=== PATIENT | male | born 1970 | race Caucasian/White ===

== ENCOUNTER 2017-09-20 16:13 | Inpatient (IN) | payer MEDICAID ==
[2017-09-20] MEDS ORDERED: Sodium Chloride 0.9% 1,000 ML IV ONE (16:51)
--- NOTE | 2017-09-20 16:58 | ED Physician Chart ---
ED Chief Complaint/HPI - Patient Information Date Seen:: 09/20/17 Time Seen:: 16:35 Chief Complaint:: Abdominal Pain History of Present Illness:: onset x 3 days of intermittent, crampy, abdominal pain, N/V/D, and fever; no trauma, H/As, neck pain, C/P, SOB, cough, A/C, chills, or urinary s/s Allergies:: Allergies Allergy/AdvReac Type Severity Reaction Status Date / Time No Known Allergies Allergy Verified 09/20/17 16:34 Vitals:: Vital Signs - 8 hr 09/20/17 16:34 Temp 99.2 F HR 110 RR 16 BP 135/86 O2 Sat % 97 Historian:: Patient Review:: Nurse's Note Reviewed ED Review of Systems - Review of Systems General/Constitutional: No fever, No chills, No weight loss, No weakness, No diaphoresis, No edema, No loss of appetite Skin: No skin lesions, No rash, No bruising Head: No headache, No light-headedness Eyes: No loss of vision, No pain, No diplopia ENT: No earache, No nasal drainage, No sore throat, No tinnitus Neck: No neck pain, No swelling, No thyromegaly, No stiffness, No mass noted Cardio Vascular: No chest pain, No palpitations, No PND, No orthopnea, No edema Pulmonary: No SOB, No cough, No sputum, No wheezing GI: Nausea, Vomiting, Diarrhea, Pain, No melena, No hematochezia, No constipation, No hematemesis G/U: No dysuria, No frequency, No hematuria, No nacturia Musculoskeletal: No bone or joint pain, No back pain, No muscle pain Endocrine: No polyuria, No polydipsia Psychiatric: No prior psych history, No depression, No anxiety, No suicidal ideation, No homicidal ideation, No auditory hallucination, No visual hallucination Hematopoietic: No bruising, No lymphadenopathy Allergic/Immuno: No urticaria, No angioedema Neurological: No syncope, No focal symptoms, No weakness, No paresthesia, No headache, No seizure, No dizziness, No confusion, No vertigo ED Past Medical History - Past Medical History Obtainable: Yes Past Medical History: No significant medical hx Family History: HTN Social History: Non Smoker, No Alcohol, No Drug Use, Single Surgical History: None Psychiatricy History: None Medication: Reviewed Family Medical History - Family Member Mother Hx Family Cancer: No Hx Family Hypertension: No Hx Family Stroke: No Hx Family Diabetes: No Hx Family Dementia: No Hx Family AIDS: No Hx Family HIV: No ED Physical Exam - Physical Examination General/Constitutional: Awake, Well-developed, well-nourished, Alert, No distress, GCS 15, Non-toxic appearing, Ambulatory Head: Atraumatic Eyes: Lids, conjuctiva normal, PERRL, EOMI Skin: Nl inspection, No rash, No skin lesions, No ecchymosis, Well hydrated, No lymphadenopathy ENMT: External ears, nose nl, TM canals nl, Nasal exam nl, Lips, teeth, gums nl , Oropharynx nl, Tonsils nl Neck: Nontender, Full ROM w/o pain, No JVD, No nuchal rigidity, No bruit, No mass, No stridor Respiratory: Nl effort/Exclusion, Clear to Auscultation, No Wheeze/Rhonchi/Rales Cardio Vascular: RRR, No murmur, gallop, rubs, NL S1 S2, Carotid/Femoral/Distal pulses equal bilaterally GI: No organomegaly, No hernia, Normal BS's, Nondistended, No mass/bruits, No McBurney tenderness Other GI comments:: epigastric and RUQ tenderness : No CVA tenderness Extremities: No tenderness or effusion, Full ROM, normal strength in all extremities, No edema, Normal digits & nails Neuro/Psych: Alert/oriented, DTR's symmetric, Normal sensory exam, Normal motor strength, Judgement/insight normal, Mood normal, Normal gait, No focal deficits Misc: Normal back, No paraspinal tenderness ED Labs/Radiology/EKG Results - Lab Results Comments:: WBC: 28.0; Na+: 129 - Radiology Results Comments:: + Cholelithiasis; Cholecystitis - EKG Interpretations EKG Time:: 16:50 Rate & Rhythm: 106; ST Comments:: non-specific st-t changes ED Septic Shock - . Is Septic Shock (SBP<90, OR Lactate>4 mmol\L) present?: No - <6hrs of presentation: Vital Signs: Vital Signs - 8 hr 09/20/17 16:34 Temp 99.2 F HR 110 RR 16 BP 135/86 O2 Sat % 97 ED Reassessment (Disposition) - Reassessment Reassessment Condition:: Improved - Diagnosis Diagnosis:: Cholecystitis; Cholelithiasis; Abdominal Pain; Leukocytosis; Fever; AGE; Intractable Pain - Aftercare/Follow up Instructions Aftercare/Follow-Up Instructions:: Counseled pt regarding lab results/diagnosis & need follow up, Counseled pt & family regarding lab results/diagnosis & need follow up - Patient Disposition Discharge/Transfer:: Acute Care w/in this hosp Accepting Physician:: Dr. Zuleta Time Called:: 1829 Time Responded:: 18:30 Admitted to:: Med/Surg Spoke to:: Dr. Zuleta Admitting Medical Physician:: Dr. Zuleta Condition at Disposition:: Stable, Improved
[2017-09-20 17:14] LABS: EOSINOPHILE ABSOLUTE 0.1 Th/cmm (0.1-0.4); HEMATOCRIT 45.9 % (41.0-60); HEMOGLOBIN 15.7 gm/dL (12-16); LYMPHOCYTE ABSOLUTE 1.2 Th/cmm (1.5-3.0); MEAN CELL VOLUME 92.2 fl (80-99); MEAN CORPUSCULAR HEMOGLOBIN 31.6 pg (26.0-30.0); MEAN CORPUSCULAR HGB CONC 34.3 pg (28.0-36.0); MEAN PLATELET VOLUME 6.9 fl; MONOCYTE ABSOLUTE 2.3 Th/cmm (0.3-1.0); NEUTROPHILE ABSOLUTE 24.4 Th/cmm (1.8-8.0); PLATELET COUNT 323 Th/cmm (150-400); RED BLOOD COUNT 4.97 Mil/cmm (4.30-5.70); RED CELL DISTRIBUTION WIDTH 13.1 % (11.5-20.0)
[2017-09-20 17:29] LABS: INR 1.1 (0.5-1.4); PROTHROMBIN TIME (TEST) 11.5 SECONDS (9.5-11.5)
[2017-09-20 17:32] LABS: ALB/GLOB RATIO 1.1 (1.0-1.8); ALBUMIN 4.2 gm/dL (4.2-5.5); ALKALINE PHOSPHATASE 96 U/L (34-104); AMYLASE SERUM 10 U/L (29-103); ANION GAP 12.1 (7.0-16.0); BILIRUBIN,TOTAL 1.5 mg/dL (0.3-1.0); BUN - UREA NITROGEN 9 mg/dL (7-25); CALCIUM SERUM 9.6 mg/dL (8.6-10.3); CARBON DIOXIDE 24.7 mEq/L (21.0-31.0); CHLORIDE 96 mEq/L (98-107); CHOLESTEROL 147 mg/dL (<200); CREATININE - SERUM 0.6 mg/dL (0.7-1.3); CREATININE KINASE 32 U/L (30-223); GFR AFRICAN-AMERICAN > 60.0 ml/min (>90); GFR NON AFRICAN-AMERICAN > 60.0 ml/min; GLUCOSE 126 mg/dL (70-105); HDL -HIGH DENSITY LIPOPROTEIN 61 mg/dL (23-92); LIPASE 5 U/L (11-82); POTASSIUM SERUM 3.8 mEq/L (3.5-5.1); SGOT 19 U/L (13-39); SGPT/ALT 28 U/L (7-52); SODIUM SERUM 129 mEq/L (136-145); TOTAL PROTEIN,SERUM 7.9 gm/dL (6.0-8.3); TRIGLYCERIDES 93 mg/dL (<150)
[2017-09-20 18:07] LABS: URINE MICROSCOPIC INDICATED? YES; URINE SOURCE CLEAN C
[2017-09-20 18:13] LABS: URINE BILIRUBIN SMALL (NEGATIVE); URINE BLOOD LARGE (NEGATIVE); URINE GLUCOSE (UA) NEGATIVE (NEGATIVE); URINE KETONE NEGATIVE (NEGATIVE); URINE LEUKOCYTE ESTERASE NEGATIVE (NEGATIVE); URINE NITRATE NEGATIVE (NEGATIVE); URINE PH 6.5 (4.6 - 8.0); URINE PROTEIN 100 mg/dL (NEGATIVE)
[2017-09-20 18:18] LABS: URINE CLARITY HAZY (CLEAR); URINE COLOR YELLOW
[2017-09-20 18:21] LABS: URINE BACTERIA FEW /hpf (NONE SEEN); URINE EPITHELIAL CELLS OCCASIONAL /lpf (FEW); URINE RBC 25-50 /hpf (0-5)
[2017-09-20 18:30] LABS: ATYPICAL LYMPH 1 %; BAND NEUTROPHILE 4 % (0-10); EOSINOPHIL 1 % (0-5); LYMPHOCYTE 5 % (20-50); MONOCYTE 6 % (2-10); NEUTROPHILS 84 % (40-80); TOTAL CELLS COUNTED 100
[2017-09-20 18:31] LABS: HYPOCHROMIA 1+; PLATELET ESTIMATE ADEQUATE (NORMAL)
[2017-09-20] MEDS ORDERED: Morphine Sulfate 2 mg/mL 1mL Syr ONE ×2 (20:50→21:41)
[2017-09-20] MEDS ORDERED: cefTRIAXone 1 GM in Sodium Chloride 0.9% 50 ML IV ONE (21:12)
[2017-09-20] MEDS ORDERED: Morphine Sulfate 2 mg/mL 1mL Syr IV STA (21:32)
[2017-09-20] MEDS ORDERED: HYDROmorphone 2 mg/mL 1mL Vial ONE (23:50)
[2017-09-20] MEDS: HYDROmorphone 1 mg/mL 1mL Syr IVP PRN (23:58)
[2017-09-21] MEDS: D5-0.45NS w/20 mEq KCL 1,000 ML IV SCH ×3 (00:01→22:55)
[2017-09-21] MEDS: metroNIDAZOLE 500mg/NS 100mL 500 MG/100 ML BAG IV SCH ×4 (00:30→20:49)
[2017-09-21 00:51] VITALS: BP 133/76
[2017-09-21] MEDS: Levofloxacin 750mg/150mL 750 MG/150 ML BAG IV SCH (01:33)
[2017-09-21 06:06] LABS: EOSINOPHILE ABSOLUTE 0.1 Th/cmm (0.1-0.4); HEMATOCRIT 44.7 % (41.0-60); LYMPHOCYTE ABSOLUTE 0.9 Th/cmm (1.5-3.0); MEAN CELL VOLUME 92.9 fl (80-99); MEAN CORPUSCULAR HEMOGLOBIN 31.1 pg (26.0-30.0); MEAN CORPUSCULAR HGB CONC 33.5 pg (28.0-36.0); MEAN PLATELET VOLUME 6.9 fl; MONOCYTE ABSOLUTE 1.5 Th/cmm (0.3-1.0); NEUTROPHILE ABSOLUTE 18.7 Th/cmm (1.8-8.0); PLATELET COUNT 285 Th/cmm (150-400); RED BLOOD COUNT 4.81 Mil/cmm (4.30-5.70); RED CELL DISTRIBUTION WIDTH 13.1 % (11.5-20.0)
[2017-09-21 06:18] LABS: WHITE BLOOD COUNT 21.2 Th/cmm (4.8-10.8)
[2017-09-21 06:22] LABS: ALB/GLOB RATIO 1.1 (1.0-1.8); ALBUMIN 3.6 gm/dL (4.2-5.5); ALKALINE PHOSPHATASE 137 U/L (34-104); ANION GAP 10.5 (7.0-16.0); BUN - UREA NITROGEN 9 mg/dL (7-25); CALCIUM SERUM 8.9 mg/dL (8.6-10.3); CARBON DIOXIDE 24.4 mEq/L (21.0-31.0); CHLORIDE 100 mEq/L (98-107); CREATININE - SERUM 0.6 mg/dL (0.7-1.3); GFR AFRICAN-AMERICAN > 60.0 ml/min (>90); GFR NON AFRICAN-AMERICAN > 60.0 ml/min; GLUCOSE 130 mg/dL (70-105); POTASSIUM SERUM 3.9 mEq/L (3.5-5.1); SGOT 117 U/L (13-39); SGPT/ALT 97 U/L (7-52); SODIUM SERUM 131 mEq/L (136-145)
[2017-09-21 07:49] LABS: TOTAL CELLS COUNTED 100
[2017-09-21 07:53] LABS: BAND NEUTROPHILE 4 % (0-10); LYMPHOCYTE 4 % (20-50); MONOCYTE 12 % (2-10); NEUTROPHILS 80 % (40-80)
[2017-09-21 07:54] LABS: PLATELET ESTIMATE ADEQUATE (NORMAL)
--- NOTE | 2017-09-21 08:00 | Diagnostic Imaging Report ---
Ultrasound abdomen HISTORY: Abdominal pain COMPARISON: CT abdomen and pelvis performed the same day Technique: Sonography of the abdomen was performed in multiple planes. FINDINGS: The liver demonstrates normal echogenicity and measures 16.3 cm. No evidence of focal lesions. Distended gallbladder is noted with stone along the gallbladder neck measuring 1.5 cm. The gallbladder wall measures 4.6 mm. No pericholecystic fluid. The common bile duct measures 3 mm. Assessment of the pancreas is limited due to bowel gas. The right kidney measures 10.3 x 5.4 cm. The left kidney measures 10.5 x 5.6 cm. No evidence of focal lesions or hydronephrosis. The spleen measures 8 cm. The visualized portions of the abdominal aorta within normal limits in size. IMPRESSION: Stones within the gallbladder neck measuring 1.5 cm with distended gallbladder and mild gallbladder wall thickening. When compared to recent CT examination, finding may represent cholecystitis. Please correlate clinically. Nuclear medicine HIDA scan would provide additional assessment.
--- NOTE | 2017-09-21 08:01 | Diagnostic Imaging Report ---
CHEST X-RAY: AP view INDICATION: pain COMPARISON: None FINDINGS: Suboptimal lung volumes are seen with increased interstitial lung markings greatest within the left base. No focal consolidation identified. Heart size cannot be well assessed due to patient's low lung volumes. Degenerative changes of the spine are noted. IMPRESSION: Suboptimal lung volumes and increased interstitial lung markings, greatest within the left lung base. Findings may be due to atelectasis, however, faint infiltrate of the left base cannot be excluded. Please correlate clinically.
--- NOTE | 2017-09-21 08:02 | Diagnostic Imaging Report ---
CT scan abdomen and pelvis without intravenous contrast HISTORY: Pain Total DLP equals 527 CTDI equals 10.2 Axial sections were obtained from the xiphoid process down to the pubic symphysis. The liver is somewhat generous in size with a bulbous contour. No focal lesions. The spleen appears normal. No abnormality seen in the region of the pancreas. There is a somewhat distended gallbladder. Faint hyperdensity noted in the gallbladder lumen consistent with sonographically demonstrated cholelithiasis. No focal renal lesions or hydronephrosis. There is a small fat-containing umbilical hernia. There is haziness noted within the right upper quadrant of the abdomen involving the pericolonic fat and region adjacent to the gallbladder. Findings may be associated with inflammatory change. Clinical correlation is needed. The exam of the pelvis demonstrates preservation of normal fat planes. No abnormal soft tissue masses or abnormal fluid collections. There are bilateral fat-containing inguinal hernias. Nonspecific interstitial changes noted within the lower lobes of the lungs that appear chronic. IMPRESSION: 1. Distended gallbladder with faint intraluminal density consistent with sonographically demonstrated cholelithiasis. 2. Haziness within the right upper abdomen involving the pericolonic fat about the hepatic flexure and region adjacent to the gallbladder. Findings may be associated with inflammatory change. Clinical correlation is needed. 3. Bilateral fat-containing inguinal hernias 4. Small fat-containing umbilical hernia 5. Solitary metallic density noted in the left periaortic region.
--- NOTE | 2017-09-21 08:35 | General Progress Note ---
Subjective - Review of Systems Service Date: 09/21/17 Events since last encounter: GB stone bilirubin 2.0 HIDA ordered drug screen ordered Objective - Results Result Diagrams: 09/21/17 05:51 09/21/17 05:51 Recent Labs: Laboratory Last Values WBC 21.2 Th/cmm (4.8-10.8) H* D 09/21/17 05:51 RBC 4.81 Mil/cmm (4.30-5.70) 09/21/17 05:51 Hgb 15.0 gm/dL (12-16) 09/21/17 05:51 Hct 44.7 % (41.0-60) 09/21/17 05:51 MCV 92.9 fl (80-99) 09/21/17 05:51 MCH 31.1 pg (26.0-30.0) H 09/21/17 05:51 MCHC Differential 33.5 pg (28.0-36.0) 09/21/17 05:51 RDW 13.1 % (11.5-20.0) 09/21/17 05:51 Plt Count 285 Th/cmm (150-400) 09/21/17 05:51 MPV 6.9 fl 09/21/17 05:51 Band Neutrophils % 4 % (0-10) 09/21/17 05:51 Neutrophils (Manual) 80 % (40-80) 09/21/17 05:51 Lymphocytes 4 % (20-50) L 09/21/17 05:51 Monocytes 12 % (2-10) H 09/21/17 05:51 Eosinophils 1 % (0-5) 09/20/17 17:04 Atypical Lymphocytes 1 % 09/20/17 17:04 Hypochromia 1+ 09/20/17 17:04 Platelet Estimate ADEQUATE (NORMAL) 09/21/17 05:51 Macrocytosis 1+ 09/20/17 17:04 PT 11.5 SECONDS (9.5-11.5) 09/20/17 17:04 INR 1.10 (0.5-1.4) 09/20/17 17:04 Sodium 131 mEq/L (136-145) L 09/21/17 05:51 Potassium 3.9 mEq/L (3.5-5.1) 09/21/17 05:51 Chloride 100 mEq/L (98-107) 09/21/17 05:51 Carbon Dioxide 24.4 mEq/L (21.0-31.0) 09/21/17 05:51 Anion Gap 10.5 (7.0-16.0) 09/21/17 05:51 BUN 9 mg/dL (7-25) 09/21/17 05:51 Creatinine 0.6 mg/dL (0.7-1.3) L 09/21/17 05:51 Est GFR ( Amer) > 60.0 ml/min (>90) 09/21/17 05:51 Est GFR (Non-Af Amer) > 60.0 ml/min 09/21/17 05:51 BUN/Creatinine Ratio 15.0 09/21/17 05:51 Glucose 130 mg/dL (70-105) H 09/21/17 05:51 Whole Bld Lactic Acid 1.14 mmol/L (0.60-1.99) 09/20/17 17:04 Calcium 8.9 mg/dL (8.6-10.3) 09/21/17 05:51 Total Bilirubin 2.0 mg/dL (0.3-1.0) H 09/21/17 05:51 AST 117 U/L (13-39) H 09/21/17 05:51 ALT 97 U/L (7-52) H 09/21/17 05:51 Alkaline Phosphatase 137 U/L (34-104) H 09/21/17 05:51 Creatine Kinase 32 U/L (30-223) 09/20/17 17:04 Troponin I < 0.01 ng/mL (0.01-0.05) L 09/20/17 17:04 B-Natriuretic Peptide 5.7 pg/mL (5.0-100.0) 09/20/17 17:04 Total Protein 7.0 gm/dL (6.0-8.3) 09/21/17 05:51 Albumin 3.6 gm/dL (4.2-5.5) L 09/21/17 05:51 Globulin 3.4 gm/dL 09/21/17 05:51 Albumin/Globulin Ratio 1.1 (1.0-1.8) 09/21/17 05:51 Triglycerides 93 mg/dL (<150) 09/20/17 17:04 Cholesterol 147 mg/dL (<200) 09/20/17 17:04 LDL Cholesterol Direct 77 mg/dL (75-193) 09/20/17 17:04 HDL Cholesterol 61 mg/dL (23-92) 09/20/17 17:04 Amylase 10 U/L (29-103) L 09/20/17 17:04 Lipase 5 U/L (11-82) L 09/20/17 17:04 Urine Source CLEAN C 09/20/17 17:00 Urine Color YELLOW 09/20/17 17:00 Urine Clarity HAZY (CLEAR) 09/20/17 17:00 Urine pH 6.5 (4.6 - 8.0) 09/20/17 17:00 Ur Specific [place] 1.025 (1.005-1.030) 09/20/17 17:00 Urine Protein 100 mg/dL (NEGATIVE) H 09/20/17 17:00 Urine Glucose (UA) NEGATIVE mg/dL (NEGATIVE) 09/20/17 17:00 Urine Ketones NEGATIVE mg/dL (NEGATIVE) 09/20/17 17:00 Urine Blood LARGE (NEGATIVE) H 09/20/17 17:00 Urine Nitrate NEGATIVE (NEGATIVE) 09/20/17 17:00 Urine Bilirubin SMALL (NEGATIVE) H 09/20/17 17:00 Urine Urobilinogen 2.0 E.U./dL (0.2 - 1.0) 09/20/17 17:00 Ur Leukocyte Esterase NEGATIVE (NEGATIVE) 09/20/17 17:00 Urine RBC 25-50 /hpf (0-5) H 09/20/17 17:00 Urine WBC 2-5 /hpf (0-5) H 09/20/17 17:00 Ur Epithelial Cells OCCASIONAL /lpf (FEW) 09/20/17 17:00 Urine Bacteria FEW /hpf (NONE SEEN) 09/20/17 17:00 - Physical Exam Vitals and I&O: Vital Signs Temp 98.4 F 09/21/17 00:00 Pulse 95 09/21/17 00:00 Resp 19 09/21/17 01:18 BP 133/76 09/21/17 00:50 Pulse Ox 98 09/21/17 00:00 Intake & Output 09/20/17 09/21/17 09/21/17 18:59 06:59 18:59 Intake Total 50 150 Output Total 0 Balance 50 150 Weight (lbs) 85.729 kg Intake: Intake, IV Amount 50 150 Levofloxacin 750mg/150mL 150 750 mg In 150 ml @ 100 mls/hr IV Q24HR [facility] Rx#: [id number] cefTRIAXone 1 gm In 50 Sodium Chloride 0.9% 50 ml @ 100 mls/hr IV X1 ONE Rx#:[id number] Output: Stool 0 Other: # Voids 1 Active Medications: Current Medications Acetaminophen (Tylenol) 650 mg PO Q4H PRN PRN Reason: FEVER >100 Stop: 11/19/17 22:14 Hydromorphone HCl (Dilaudid) 1 mg IVP Q4H PRN PRN Reason: Pain (Severe) Stop: 11/19/17 22:14 Last Admin: 09/20/17 23:58 Dose: 1 mg Potassium Chloride/Dextrose/Sod Cl (D5-0.45ns W/20 Meq Kcl) 1,000 mls @ 125 mls /hr IV .Q8H [facility] Stop: 11/19/17 21:59 Last Admin: 09/21/17 00:01 Dose: 125 mls/hr Levofloxacin (Levaquin Pb) 750 mg in 150 mls @ 100 mls/hr IV Q24HR [facility] Stop: 11/20/17 00:00 Last Infusion: 09/21/17 07:58 Dose: Infused Metronidazole (Flagyl) 500 mg in 100 mls @ 100 mls/hr IV Q8HR [facility] Stop: 11/19/17 22:59 Last Admin: 09/21/17 05:55 Dose: Not Given Ondansetron HCl (Zofran) 4 mg IV Q4H PRN PRN Reason: Nausea / Vomiting Stop: 11/19/17 22:14 Pantoprazole Sodium (Protonix) 40 mg IVP DAILY [facility] Stop: 11/20/17 08:59
[2017-09-21] MEDS: HYDROmorphone 1 mg/mL 1mL Syr IVP PRN ×3 (12:25→20:48)
--- NOTE | 2017-09-21 12:36 | Diagnostic Imaging Report ---
Radionuclide biliary scan (HIDA scan) HISTORY: Pain, elevated bilirubin 5.0 mCi technetium labeled biliary age and was using the exam. There is normal hepatic uptake and clearance. There is excretion of nuclide of the common bile duct and small bowel. The gallbladder is not seen. Findings are consistent with cystic duct obstruction. Clinical correlation is needed. IMPRESSION: 1. Nonvisualization of the gallbladder. The findings are consistent with cystic duct obstruction. Clinical correlation is needed.
[2017-09-21 17:01] LABS: AMPHETAMINE URINE NEGATIVE (NEGATIVE); BARBITURATES URINE NEGATIVE (NEGATIVE); BENZODIAZEPINES QUAL URINE NEGATIVE (NEGATIVE); CANNABINOID THC NEGATIVE (NEGATIVE); COCAINE METABOLITE QUAL URINE NEGATIVE (NEGATIVE); METHADONE URINE NEGATIVE (NEGATIVE); METHAMPHETAMINES QUAL URINE NEGATIVE (NEGATIVE); OPIATES (MORPHINE) QUAL. URINE POSITIVE (NEGATIVE); PHENCYCLIDINE (PCP) URINE NEGATIVE (NEGATIVE); TRICYCLICS (TCA) QUAL. URINE NEGATIVE (NEGATIVE)
--- NOTE | 2017-09-21 18:28 | History & Physical ---
ADMIT DATE: 09/21/2017 CHIEF COMPLAINT: Right upper abdominal pain, nausea, vomiting for few days duration. HISTORY OF PRESENT ILLNESS: The patient is a 47-year-old male, who presented to the Emergency Room complaining of right upper quadrant abdominal pain for a few days' duration, seizures, nausea, vomiting, evaluated by the ER physician. Initial workup significant for acute cholecystitis, cholelithiasis, admitted to medical floor with IV fluid, IV antibiotic. Dr. Mayer consulted on the case. HIDA scan ordered. HIDA scan is significant for gallbladder neck obstruction. Dr. Mayer was informed. PAST MEDICAL HISTORY: Negative. PAST SURGICAL HISTORY: No recent surgery. ALLERGIES: None. MEDICATIONS: None. SOCIAL HISTORY: He is a chronic smoker. No alcohol or drug use. FAMILY HISTORY: Noncontributory. REVIEW OF SYSTEMS: SYSTEM: No history of chronic renal disorder. CARDIOVASCULAR SYSTEM: No coronary artery disease. ENDOCRINE SYSTEM: No diabetes or thyroid problem. GASTROINTESTINAL SYSTEM: No upper or lower gastrointestinal bleed. NEUROLOGICAL SYSTEM: No seizure disorder. SKELETOMUSCULAR SYSTEM: No muscular dystrophy. HEMATOLOGIC SYSTEM: No bleeding tendencies. RESPIRATORY SYSTEM: No asthma. GENITOURINARY: No dysuria or hematuria. PHYSICAL EXAMINATION: GENERAL: He is awake, alert, oriented. Mildly in pain, not in distress. VITAL SIGNS: Temperature 98.1, heart rate 88, blood pressure 128/76. HEENT: Normocephalic. Pupils reacting equal to light and accommodation. Sclerae clear. NECK: Supple. Negative for lymphadenopathy, JVD, or bruit. CHEST: Entry of air bilaterally normal rhonchi or wheezing. HEART: S1, S2 normal. ABDOMEN: Soft. Tenderness at the right upper quadrant. Rebound negative. Bowel sounds positive. EXTREMITIES: No edema. NEUROLOGIC: He is awake, alert, oriented. No focal motor deficits. Cranial nerves 2-12 are intact. LABORATORY DATA: White blood cell 28,000, hemoglobin 15.7, hematocrit 45.9, platelet 323. Sodium 129, potassium 3.8, BUN 9, creatinine 0.6, amylase 10, lipase 5. ASSESSMENT: 1. Acute cholecystitis. 2. Cholelithiasis. 3. Hyponatremia. 4. Leukocytosis. PLAN: The patient admitted to the hospital under Dr. Tomas's service, IV fluid, IV antibiotic. CBC, CMP for tomorrow. The patient is a full code. Case discussed with the family at bedside. JOB# [id number]
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
[2017-09-22] MEDS: HYDROmorphone 1 mg/mL 1mL Syr IVP PRN ×6 (00:31→20:31)
[2017-09-22] MEDS: Levofloxacin 750mg/150mL 750 MG/150 ML BAG IV SCH (03:44)
[2017-09-22 05:09] LABS: HEMATOCRIT 42.7 % (41.0-60); HEMOGLOBIN 14.3 gm/dL (12-16); MEAN CELL VOLUME 92.8 fl (80-99); MEAN CORPUSCULAR HEMOGLOBIN 31.1 pg (26.0-30.0); MEAN CORPUSCULAR HGB CONC 33.5 pg (28.0-36.0); MEAN PLATELET VOLUME 7.1 fl; PLATELET COUNT 332 Th/cmm (150-400); RED CELL DISTRIBUTION WIDTH 13.3 % (11.5-20.0)
[2017-09-22 05:13] LABS: WHITE BLOOD COUNT 20.8 Th/cmm (4.8-10.8)
[2017-09-22] MEDS: metroNIDAZOLE 500mg/NS 100mL 500 MG/100 ML BAG IV SCH ×3 (05:21→20:29)
[2017-09-22 05:28] LABS: INR 1.08 (0.5-1.4); PROTHROMBIN TIME (TEST) 11.2 SECONDS (9.5-11.5)
[2017-09-22 05:33] LABS: ALBUMIN 3.4 gm/dL (4.2-5.5); ALKALINE PHOSPHATASE 158 U/L (34-104); ANION GAP 9.7 (7.0-16.0); BUN - UREA NITROGEN 7 mg/dL (7-25); CALCIUM SERUM 8.8 mg/dL (8.6-10.3); CHLORIDE 99 mEq/L (98-107); CREATININE - SERUM 0.9 mg/dL (0.7-1.3); GFR AFRICAN-AMERICAN > 60.0 ml/min (>90); GFR NON AFRICAN-AMERICAN > 60.0 ml/min; GLUCOSE 124 mg/dL (70-105); POTASSIUM SERUM 3.7 mEq/L (3.5-5.1); SGOT 52 U/L (13-39); SGPT/ALT 87 U/L (7-52); SODIUM SERUM 130 mEq/L (136-145); TOTAL PROTEIN,SERUM 6.8 gm/dL (6.0-8.3)
[2017-09-22 06:07] LABS: BAND NEUTROPHILE 3 % (0-10); LYMPHOCYTE 5 % (20-50); MONOCYTE 10 % (2-10); NEUTROPHILS 82 % (40-80); TOTAL CELLS COUNTED 100
[2017-09-22] MEDS ORDERED: Propofol **SURGERY USE ONLY** 20 ML IV ONE (07:31)
--- NOTE | 2017-09-22 09:14 | General Progress Note ---
Subjective - Review of Systems Service Date: 09/22/17 Events since last encounter: persistent LFT elevation and leukocytosis HiDA GB non viz GI consult for possible ERCP prior to lap ema no tenderness in RUQ, denies pain Objective - Results Result Diagrams: 09/22/17 04:35 09/22/17 04:35 Recent Labs: Laboratory Last Values WBC 20.8 Th/cmm (4.8-10.8) H* 09/22/17 04:35 RBC 4.60 Mil/cmm (4.30-5.70) 09/22/17 04:35 Hgb 14.3 gm/dL (12-16) 09/22/17 04:35 Hct 42.7 % (41.0-60) 09/22/17 04:35 MCV 92.8 fl (80-99) 09/22/17 04:35 MCH 31.1 pg (26.0-30.0) H 09/22/17 04:35 MCHC Differential 33.5 pg (28.0-36.0) 09/22/17 04:35 RDW 13.3 % (11.5-20.0) 09/22/17 04:35 Plt Count 332 Th/cmm (150-400) 09/22/17 04:35 MPV 7.1 fl 09/22/17 04:35 Band Neutrophils % 3 % (0-10) 09/22/17 04:35 Neutrophils (Manual) 82 % (40-80) H 09/22/17 04:35 Lymphocytes 5 % (20-50) L 09/22/17 04:35 Monocytes 10 % (2-10) 09/22/17 04:35 Eosinophils 1 % (0-5) 09/20/17 17:04 Atypical Lymphocytes 1 % 09/20/17 17:04 Hypochromia 1+ 09/20/17 17:04 Platelet Estimate ADEQUATE (NORMAL) 09/21/17 05:51 Macrocytosis 1+ 09/20/17 17:04 PT 11.2 SECONDS (9.5-11.5) 09/22/17 04:35 INR 1.08 (0.5-1.4) 09/22/17 04:35 PTT (Actin FS) 28.1 SECONDS (26.0-38.0) 09/22/17 04:35 Sodium 130 mEq/L (136-145) L 09/22/17 04:35 Potassium 3.7 mEq/L (3.5-5.1) 09/22/17 04:35 Chloride 99 mEq/L (98-107) 09/22/17 04:35 Carbon Dioxide 25.0 mEq/L (21.0-31.0) 09/22/17 04:35 Anion Gap 9.7 (7.0-16.0) 09/22/17 04:35 BUN 7 mg/dL (7-25) 09/22/17 04:35 Creatinine 0.9 mg/dL (0.7-1.3) 09/22/17 04:35 Est GFR ( Amer) > 60.0 ml/min (>90) 09/22/17 04:35 Est GFR (Non-Af Amer) > 60.0 ml/min 09/22/17 04:35 BUN/Creatinine Ratio 7.8 09/22/17 04:35 Glucose 124 mg/dL (70-105) H 09/22/17 04:35 POC Glucose 117 MG/DL (70 - 105) H 09/22/17 06:19 Whole Bld Lactic Acid 1.14 mmol/L (0.60-1.99) 09/20/17 17:04 Calcium 8.8 mg/dL (8.6-10.3) 09/22/17 04:35 Total Bilirubin 2.0 mg/dL (0.3-1.0) H 09/22/17 04:35 AST 52 U/L (13-39) H 09/22/17 04:35 ALT 87 U/L (7-52) H 09/22/17 04:35 Alkaline Phosphatase 158 U/L (34-104) H 09/22/17 04:35 Creatine Kinase 32 U/L (30-223) 09/20/17 17:04 Troponin I < 0.01 ng/mL (0.01-0.05) L 09/20/17 17:04 B-Natriuretic Peptide 5.7 pg/mL (5.0-100.0) 09/20/17 17:04 Total Protein 6.8 gm/dL (6.0-8.3) 09/22/17 04:35 Albumin 3.4 gm/dL (4.2-5.5) L 09/22/17 04:35 Globulin 3.4 gm/dL 09/22/17 04:35 Albumin/Globulin Ratio 1.0 (1.0-1.8) 09/22/17 04:35 Triglycerides 93 mg/dL (<150) 09/20/17 17:04 Cholesterol 147 mg/dL (<200) 09/20/17 17:04 LDL Cholesterol Direct 77 mg/dL (75-193) 09/20/17 17:04 HDL Cholesterol 61 mg/dL (23-92) 09/20/17 17:04 Amylase 10 U/L (29-103) L 09/20/17 17:04 Lipase 5 U/L (11-82) L 09/20/17 17:04 Urine Source CLEAN C 09/20/17 17:00 Urine Color YELLOW 09/20/17 17:00 Urine Clarity HAZY (CLEAR) 09/20/17 17:00 Urine pH 6.5 (4.6 - 8.0) 09/20/17 17:00 Ur Specific [place] 1.025 (1.005-1.030) 09/20/17 17:00 Urine Protein 100 mg/dL (NEGATIVE) H 09/20/17 17:00 Urine Glucose (UA) NEGATIVE mg/dL (NEGATIVE) 09/20/17 17:00 Urine Ketones NEGATIVE mg/dL (NEGATIVE) 09/20/17 17:00 Urine Blood LARGE (NEGATIVE) H 09/20/17 17:00 Urine Nitrate NEGATIVE (NEGATIVE) 09/20/17 17:00 Urine Bilirubin SMALL (NEGATIVE) H 09/20/17 17:00 Urine Urobilinogen 2.0 E.U./dL (0.2 - 1.0) 09/20/17 17:00 Ur Leukocyte Esterase NEGATIVE (NEGATIVE) 09/20/17 17:00 Urine RBC 25-50 /hpf (0-5) H 09/20/17 17:00 Urine WBC 2-5 /hpf (0-5) H 09/20/17 17:00 Ur Epithelial Cells OCCASIONAL /lpf (FEW) 09/20/17 17:00 Urine Bacteria FEW /hpf (NONE SEEN) 09/20/17 17:00 Urine Opiates Screen POSITIVE (NEGATIVE) H 09/21/17 15:30 Urine Methadone Screen NEGATIVE (NEGATIVE) 09/21/17 15:30 Ur Barbiturates Screen NEGATIVE (NEGATIVE) 09/21/17 15:30 Ur Tricyclics Screen NEGATIVE (NEGATIVE) 09/21/17 15:30 Ur Phencyclidine Scrn NEGATIVE (NEGATIVE) 09/21/17 15:30 Amphetamines Screen NEGATIVE (NEGATIVE) 09/21/17 15:30 U Methamphetamines Scrn NEGATIVE (NEGATIVE) 09/21/17 15:30 U Benzodiazepines Scrn NEGATIVE (NEGATIVE) 09/21/17 15:30 U Cocaine Metab Screen NEGATIVE (NEGATIVE) 09/21/17 15:30 U Cannabinoids Screen NEGATIVE (NEGATIVE) 09/21/17 15:30 - Physical Exam Vitals and I&O: Vital Signs Temp 98.5 F 09/22/17 07:37 Pulse 84 09/22/17 07:37 Resp 18 09/22/17 07:37 BP 126/72 09/22/17 07:37 Pulse Ox 100 09/22/17 07:37 Intake & Output 09/21/17 09/22/17 09/22/17 18:59 06:59 18:59 Intake Total 1350 1300 Output Total 650 Balance 1350 650 Weight (lbs) 86.183 kg Intake: Intake, IV Amount 1350 1100 D5-0.45NS w/20 mEq KCL 1, 1000 1000 000 ml @ 125 mls/hr IV . Q8H [facility] Rx#:[id number] Levofloxacin 750mg/150mL 150 750 mg In 150 ml @ 100 mls/hr IV Q24HR [facility] Rx#: [id number] metroNIDAZOLE 500mg/NS 200 100 100mL 500 mg In 100 ml @ 100 mls/hr IV Q8HR [facility] Rx #:[id number] Oral 200 Output: Urine 650 Other: # Bowel Movements 1 Active Medications: Current Medications Acetaminophen (Tylenol) 650 mg PO Q4H PRN PRN Reason: FEVER >100 Stop: 11/19/17 22:14 Hydromorphone HCl (Dilaudid) 1 mg IVP Q4H PRN PRN Reason: Pain (Severe) Stop: 11/19/17 22:14 Last Admin: 09/22/17 08:15 Dose: 1 mg Potassium Chloride/Dextrose/Sod Cl (D5-0.45ns W/20 Meq Kcl) 1,000 mls @ 125 mls /hr IV .Q8H [facility] Stop: 11/19/17 21:59 Last Admin: 09/21/17 22:55 Dose: 125 mls/hr Levofloxacin (Levaquin Pb) 750 mg in 150 mls @ 100 mls/hr IV Q24HR [facility] Stop: 11/20/17 00:00 Last Admin: 09/22/17 03:44 Dose: 100 mls/hr Metronidazole (Flagyl) 500 mg in 100 mls @ 100 mls/hr IV Q8HR [facility] Stop: 11/19/17 22:59 Last Admin: 09/22/17 05:21 Dose: 100 mls/hr Ondansetron HCl (Zofran) 4 mg IV Q4H PRN PRN Reason: Nausea / Vomiting Stop: 11/19/17 22:14 Pantoprazole Sodium (Protonix) 40 mg IVP DAILY [facility] Stop: 11/20/17 08:59 Last Admin: 09/22/17 08:16 Dose: 40 mg
[2017-09-22] MEDS: D5-0.45NS w/20 mEq KCL 1,000 ML IV SCH ×2 (11:21→20:32)
--- NOTE | 2017-09-22 13:54 | Internal Medicine Prog Note ---
Internal Medicine Subjective - Subjective Service Date: 09/22/17 Patient seen and examined:: without staff Patient is:: awake, in bed, talking Per staff patient has:: no adverse event Internal Medicine Objective - Results Result Diagrams: 09/22/17 04:35 09/22/17 04:35 Recent Labs: Laboratory Last Values WBC 20.8 Th/cmm (4.8-10.8) H* 09/22/17 04:35 RBC 4.60 Mil/cmm (4.30-5.70) 09/22/17 04:35 Hgb 14.3 gm/dL (12-16) 09/22/17 04:35 Hct 42.7 % (41.0-60) 09/22/17 04:35 MCV 92.8 fl (80-99) 09/22/17 04:35 MCH 31.1 pg (26.0-30.0) H 09/22/17 04:35 MCHC Differential 33.5 pg (28.0-36.0) 09/22/17 04:35 RDW 13.3 % (11.5-20.0) 09/22/17 04:35 Plt Count 332 Th/cmm (150-400) 09/22/17 04:35 MPV 7.1 fl 09/22/17 04:35 Band Neutrophils % 3 % (0-10) 09/22/17 04:35 Neutrophils (Manual) 82 % (40-80) H 09/22/17 04:35 Lymphocytes 5 % (20-50) L 09/22/17 04:35 Monocytes 10 % (2-10) 09/22/17 04:35 Eosinophils 1 % (0-5) 09/20/17 17:04 Atypical Lymphocytes 1 % 09/20/17 17:04 Hypochromia 1+ 09/20/17 17:04 Platelet Estimate ADEQUATE (NORMAL) 09/21/17 05:51 Macrocytosis 1+ 09/20/17 17:04 PT 11.2 SECONDS (9.5-11.5) 09/22/17 04:35 INR 1.08 (0.5-1.4) 09/22/17 04:35 PTT (Actin FS) 28.1 SECONDS (26.0-38.0) 09/22/17 04:35 Sodium 130 mEq/L (136-145) L 09/22/17 04:35 Potassium 3.7 mEq/L (3.5-5.1) 09/22/17 04:35 Chloride 99 mEq/L (98-107) 09/22/17 04:35 Carbon Dioxide 25.0 mEq/L (21.0-31.0) 09/22/17 04:35 Anion Gap 9.7 (7.0-16.0) 09/22/17 04:35 BUN 7 mg/dL (7-25) 09/22/17 04:35 Creatinine 0.9 mg/dL (0.7-1.3) 09/22/17 04:35 Est GFR ( Amer) > 60.0 ml/min (>90) 09/22/17 04:35 Est GFR (Non-Af Amer) > 60.0 ml/min 09/22/17 04:35 BUN/Creatinine Ratio 7.8 09/22/17 04:35 Glucose 124 mg/dL (70-105) H 09/22/17 04:35 POC Glucose 117 MG/DL (70 - 105) H 09/22/17 06:19 Whole Bld Lactic Acid 1.14 mmol/L (0.60-1.99) 09/20/17 17:04 Calcium 8.8 mg/dL (8.6-10.3) 09/22/17 04:35 Total Bilirubin 2.0 mg/dL (0.3-1.0) H 09/22/17 04:35 AST 52 U/L (13-39) H 09/22/17 04:35 ALT 87 U/L (7-52) H 09/22/17 04:35 Alkaline Phosphatase 158 U/L (34-104) H 09/22/17 04:35 Creatine Kinase 32 U/L (30-223) 09/20/17 17:04 Troponin I < 0.01 ng/mL (0.01-0.05) L 09/20/17 17:04 B-Natriuretic Peptide 5.7 pg/mL (5.0-100.0) 09/20/17 17:04 Total Protein 6.8 gm/dL (6.0-8.3) 09/22/17 04:35 Albumin 3.4 gm/dL (4.2-5.5) L 09/22/17 04:35 Globulin 3.4 gm/dL 09/22/17 04:35 Albumin/Globulin Ratio 1.0 (1.0-1.8) 09/22/17 04:35 Triglycerides 93 mg/dL (<150) 09/20/17 17:04 Cholesterol 147 mg/dL (<200) 09/20/17 17:04 LDL Cholesterol Direct 77 mg/dL (75-193) 09/20/17 17:04 HDL Cholesterol 61 mg/dL (23-92) 09/20/17 17:04 Amylase 10 U/L (29-103) L 09/20/17 17:04 Lipase 5 U/L (11-82) L 09/20/17 17:04 Urine Source CLEAN C 09/20/17 17:00 Urine Color YELLOW 09/20/17 17:00 Urine Clarity HAZY (CLEAR) 09/20/17 17:00 Urine pH 6.5 (4.6 - 8.0) 09/20/17 17:00 Ur Specific [place] 1.025 (1.005-1.030) 09/20/17 17:00 Urine Protein 100 mg/dL (NEGATIVE) H 09/20/17 17:00 Urine Glucose (UA) NEGATIVE mg/dL (NEGATIVE) 09/20/17 17:00 Urine Ketones NEGATIVE mg/dL (NEGATIVE) 09/20/17 17:00 Urine Blood LARGE (NEGATIVE) H 09/20/17 17:00 Urine Nitrate NEGATIVE (NEGATIVE) 09/20/17 17:00 Urine Bilirubin SMALL (NEGATIVE) H 09/20/17 17:00 Urine Urobilinogen 2.0 E.U./dL (0.2 - 1.0) 09/20/17 17:00 Ur Leukocyte Esterase NEGATIVE (NEGATIVE) 09/20/17 17:00 Urine RBC 25-50 /hpf (0-5) H 09/20/17 17:00 Urine WBC 2-5 /hpf (0-5) H 09/20/17 17:00 Ur Epithelial Cells OCCASIONAL /lpf (FEW) 09/20/17 17:00 Urine Bacteria FEW /hpf (NONE SEEN) 09/20/17 17:00 Urine Opiates Screen POSITIVE (NEGATIVE) H 09/21/17 15:30 Urine Methadone Screen NEGATIVE (NEGATIVE) 09/21/17 15:30 Ur Barbiturates Screen NEGATIVE (NEGATIVE) 09/21/17 15:30 Ur Tricyclics Screen NEGATIVE (NEGATIVE) 09/21/17 15:30 Ur Phencyclidine Scrn NEGATIVE (NEGATIVE) 09/21/17 15:30 Amphetamines Screen NEGATIVE (NEGATIVE) 09/21/17 15:30 U Methamphetamines Scrn NEGATIVE (NEGATIVE) 09/21/17 15:30 U Benzodiazepines Scrn NEGATIVE (NEGATIVE) 09/21/17 15:30 U Cocaine Metab Screen NEGATIVE (NEGATIVE) 09/21/17 15:30 U Cannabinoids Screen NEGATIVE (NEGATIVE) 09/21/17 15:30 - Physical Exam Vitals and I&O: Vital Signs Temp 98.6 F 09/22/17 11:08 Pulse 72 09/22/17 11:08 Resp 17 09/22/17 11:08 BP 130/67 09/22/17 11:08 Pulse Ox 99 09/22/17 11:08 Intake & Output 09/21/17 09/22/17 09/22/17 18:59 06:59 18:59 Intake Total 1350 2400 Output Total 650 Balance 1350 1750 Weight (lbs) 86.183 kg Intake: Intake, IV Amount 1350 2200 D5-0.45NS w/20 mEq KCL 1, 1000 2000 000 ml @ 125 mls/hr IV . Q8H [facility] Rx#:[id number] Levofloxacin 750mg/150mL 150 750 mg In 150 ml @ 100 mls/hr IV Q24HR [facility] Rx#: [id number] metroNIDAZOLE 500mg/NS 200 200 100mL 500 mg In 100 ml @ 100 mls/hr IV Q8HR [facility] Rx #:[id number] Oral 200 Output: Urine 650 Other: # Bowel Movements 1 Active Medications: Current Medications Acetaminophen (Tylenol) 650 mg PO Q4H PRN PRN Reason: FEVER >100 Stop: 11/19/17 22:14 Hydromorphone HCl (Dilaudid) 1 mg IVP Q4H PRN PRN Reason: Pain (Severe) Stop: 11/19/17 22:14 Last Admin: 09/22/17 12:17 Dose: 1 mg Potassium Chloride/Dextrose/Sod Cl (D5-0.45ns W/20 Meq Kcl) 1,000 mls @ 125 mls /hr IV .Q8H [facility] Stop: 11/19/17 21:59 Last Admin: 09/22/17 11:21 Dose: 125 mls/hr Levofloxacin (Levaquin Pb) 750 mg in 150 mls @ 100 mls/hr IV Q24HR [facility] Stop: 11/20/17 00:00 Last Admin: 09/22/17 03:44 Dose: 100 mls/hr Metronidazole (Flagyl) 500 mg in 100 mls @ 100 mls/hr IV Q8HR [facility] Stop: 11/19/17 22:59 Last Admin: 09/22/17 12:17 Dose: 100 mls/hr Ondansetron HCl (Zofran) 4 mg IV Q4H PRN PRN Reason: Nausea / Vomiting Stop: 11/19/17 22:14 Pantoprazole Sodium (Protonix) 40 mg IVP DAILY [facility] Stop: 11/20/17 08:59 Last Admin: 09/22/17 08:16 Dose: 40 mg General: alert HEENT: NC/AT, PERRLA, EOMI, anicteric sclerae, throat clear Neck: Supple, No JVD, No thyromegaly, +2 carotid pulse wo bruit Lungs: CTAB Cardiovascular: RRR, Normal S1, Normal S2, without murmur Abdomen: soft, non-distended, positive bowel sound Extremities: clear Neurological: no change Internal Medicine Assmt/Plan - Assessment Assessment: 1.ACUTE CHOLECYSTITIS. 2.CHOLELITHIASIS - Plan Plan: CONTINUE ON CURRENT MEDICATION.
[2017-09-23] MEDS: HYDROmorphone 1 mg/mL 1mL Syr IVP PRN ×4 (00:22→18:47)
[2017-09-23] MEDS: Levofloxacin 750mg/150mL 750 MG/150 ML BAG IV SCH ×2 (00:34→23:24)
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
[2017-09-23] MEDS: metroNIDAZOLE 500mg/NS 100mL 500 MG/100 ML BAG IV SCH ×3 (05:08→22:10)
[2017-09-23] MEDS: D5-0.45NS w/20 mEq KCL 1,000 ML IV SCH ×3 (05:10→18:47)
[2017-09-23 05:40] LABS: BASOPHILE ABSOLUTE 0.1 Th/cumm (0-0.2); EOSINOPHILE ABSOLUTE 0.2 Th/cmm (0.1-0.4); HEMATOCRIT 41.4 % (41.0-60); HEMOGLOBIN 13.8 gm/dL (12-16); LYMPHOCYTE ABSOLUTE 1.1 Th/cmm (1.5-3.0); MEAN CELL VOLUME 91.9 fl (80-99); MEAN CORPUSCULAR HEMOGLOBIN 30.7 pg (26.0-30.0); MEAN CORPUSCULAR HGB CONC 33.4 pg (28.0-36.0); MEAN PLATELET VOLUME 6.7 fl; MONOCYTE ABSOLUTE 2.4 Th/cmm (0.3-1.0); NEUTROPHILE ABSOLUTE 15.1 Th/cmm (1.8-8.0); PLATELET COUNT 347 Th/cmm (150-400); RED CELL DISTRIBUTION WIDTH 13.4 % (11.5-20.0)
[2017-09-23 05:45] LABS: WHITE BLOOD COUNT 18.9 Th/cmm (4.8-10.8)
[2017-09-23 06:06] LABS: ALBUMIN 3.3 gm/dL (4.2-5.5); ALKALINE PHOSPHATASE 202 U/L (34-104); ANION GAP 10.4 (7.0-16.0); BILIRUBIN,TOTAL 1.1 mg/dL (0.3-1.0); BUN - UREA NITROGEN 7 mg/dL (7-25); CALCIUM SERUM 8.6 mg/dL (8.6-10.3); CARBON DIOXIDE 26.3 mEq/L (21.0-31.0); CHLORIDE 100 mEq/L (98-107); CREATININE - SERUM 0.6 mg/dL (0.7-1.3); GFR AFRICAN-AMERICAN > 60.0 ml/min (>90); GFR NON AFRICAN-AMERICAN > 60.0 ml/min; GLUCOSE 122 mg/dL (70-105); LIPASE 10 U/L (11-82); POTASSIUM SERUM 3.7 mEq/L (3.5-5.1); SGOT 20 U/L (13-39); SGPT/ALT 54 U/L (7-52); SODIUM SERUM 133 mEq/L (136-145); TOTAL PROTEIN,SERUM 6.6 gm/dL (6.0-8.3)
[2017-09-23 06:08] LABS: INR 1.17 (0.5-1.4); PROTHROMBIN TIME (TEST) 12.3 SECONDS (9.5-11.5)
[2017-09-23 06:26] LABS: TOTAL CELLS COUNTED 100
[2017-09-23 06:27] LABS: ATYPICAL LYMPH 1 %; BAND NEUTROPHILE 5 % (0-10); EOSINOPHIL 1 % (0-5); LYMPHOCYTE 3 % (20-50); METAMYELOCYTE 1 % (0-0); MONOCYTE 9 % (2-10); NEUTROPHILS 80 % (40-80)
[2017-09-23 06:28] LABS: HYPOCHROMIA 1+; PLATELET ESTIMATE ADEQUATE (NORMAL)
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
--- NOTE | 2017-09-23 10:36 | Consultation ---
DATE OF CONSULTATION: 09/21/2017 INFECTIOUS CONSULTATION PRIMARY CARE PHYSICIAN: Nicola Tomas M.D. HISTORY OF PRESENT ILLNESS: A 47-year-old male who was brought to the Emergency Room with complaint of right-sided upper abdominal pain for a few days. The patient also had nausea and vomiting. The patient's workup shows cholecystitis and was seen by Dr. Mayer. Infectious consultation was called for further treatment. The patient started on Levaquin and Flagyl. PAST MEDICAL HISTORY: None. SOCIAL HISTORY: The patient is a smoker. FAMILY HISTORY: Negative. REVIEW OF SYSTEMS: A 14-point review of system negative except above. PHYSICAL EXAMINATION: GENERAL: Young male, not in distress. VITAL SIGNS: Temperature 98, pulse 88, respiration 18, and blood pressure 128/60. HEENT: Mild pallor, no icterus or plaque. NECK: Supple. LUNGS: Breath sounds bilateral. CARDIOVASCULAR: S1. ABDOMEN: Tenderness epigastric in right upper quadrant. No rebound. No ascites. EXTREMITIES: No pedal edema. NEUROLOGIC: No focal deficit. LABORATORY DATA: Labs are as follows: White count 28,000, hemoglobin 15 grams. Ultrasound and CAT scan suggestive of cholecystitis. DIAGNOSES: Cholecystitis and possible choledocholithiasis. The patient needs Gastroenterology and Surgery evaluation. Meanwhile, continue same antibiotic Levaquin and Flagyl, pain is well controlled. Sodium is low. We will repeat basic metabolic panel tomorrow. Thank you Dr. Tomas for this consultation. JOB# [id number]
--- NOTE | 2017-09-23 10:49 | General Progress Note ---
Subjective - Review of Systems Service Date: 09/23/17 Events since last encounter: improving labs GI consult noted anita boo on Monday Objective - Results Result Diagrams: 09/23/17 05:20 09/23/17 05:20 Recent Labs: Laboratory Last Values WBC 18.9 Th/cmm (4.8-10.8) H 09/23/17 05:20 RBC 4.50 Mil/cmm (4.30-5.70) 09/23/17 05:20 Hgb 13.8 gm/dL (12-16) 09/23/17 05:20 Hct 41.4 % (41.0-60) 09/23/17 05:20 MCV 91.9 fl (80-99) 09/23/17 05:20 MCH 30.7 pg (26.0-30.0) H 09/23/17 05:20 MCHC Differential 33.4 pg (28.0-36.0) 09/23/17 05:20 RDW 13.4 % (11.5-20.0) 09/23/17 05:20 Plt Count 347 Th/cmm (150-400) 09/23/17 05:20 MPV 6.7 fl 09/23/17 05:20 Neutrophils % MEDICAL BILLER/CODER 09/23/17 05:20 Band Neutrophils % 5 % (0-10) 09/23/17 05:20 Lymphocytes % MEDICAL BILLER/CODER 09/23/17 05:20 Monocytes % MEDICAL BILLER/CODER 09/23/17 05:20 Eosinophils % MEDICAL BILLER/CODER 09/23/17 05:20 Basophils % MEDICAL BILLER/CODER 09/23/17 05:20 Neutrophils (Manual) 80 % (40-80) 09/23/17 05:20 Lymphocytes 3 % (20-50) L 09/23/17 05:20 Monocytes 9 % (2-10) 09/23/17 05:20 Eosinophils 1 % (0-5) 09/23/17 05:20 Metamyelocytes 1 % (0-0) H 09/23/17 05:20 Atypical Lymphocytes 1 % 09/23/17 05:20 Hypochromia 1+ 09/23/17 05:20 Platelet Estimate ADEQUATE (NORMAL) 09/23/17 05:20 Macrocytosis 1+ 09/23/17 05:20 PT 12.3 SECONDS (9.5-11.5) H 09/23/17 05:20 INR 1.17 (0.5-1.4) 09/23/17 05:20 PTT (Actin FS) 28.0 SECONDS (26.0-38.0) 09/23/17 05:20 Sodium 133 mEq/L (136-145) L 09/23/17 05:20 Potassium 3.7 mEq/L (3.5-5.1) 09/23/17 05:20 Chloride 100 mEq/L (98-107) 09/23/17 05:20 Carbon Dioxide 26.3 mEq/L (21.0-31.0) 09/23/17 05:20 Anion Gap 10.4 (7.0-16.0) 09/23/17 05:20 BUN 7 mg/dL (7-25) 09/23/17 05:20 Creatinine 0.6 mg/dL (0.7-1.3) L 09/23/17 05:20 Est GFR ( Amer) > 60.0 ml/min (>90) 09/23/17 05:20 Est GFR (Non-Af Amer) > 60.0 ml/min 09/23/17 05:20 BUN/Creatinine Ratio 11.7 09/23/17 05:20 Glucose 122 mg/dL (70-105) H 09/23/17 05:20 POC Glucose 117 MG/DL (70 - 105) H 09/22/17 06:19 Whole Bld Lactic Acid 1.14 mmol/L (0.60-1.99) 09/20/17 17:04 Calcium 8.6 mg/dL (8.6-10.3) 09/23/17 05:20 Total Bilirubin 1.1 mg/dL (0.3-1.0) H 09/23/17 05:20 AST 20 U/L (13-39) 09/23/17 05:20 ALT 54 U/L (7-52) H 09/23/17 05:20 Alkaline Phosphatase 202 U/L (34-104) H 09/23/17 05:20 Creatine Kinase 32 U/L (30-223) 09/20/17 17:04 Troponin I < 0.01 ng/mL (0.01-0.05) L 09/20/17 17:04 B-Natriuretic Peptide 5.7 pg/mL (5.0-100.0) 09/20/17 17:04 Total Protein 6.6 gm/dL (6.0-8.3) 09/23/17 05:20 Albumin 3.3 gm/dL (4.2-5.5) L 09/23/17 05:20 Globulin 3.3 gm/dL 09/23/17 05:20 Albumin/Globulin Ratio 1.0 (1.0-1.8) 09/23/17 05:20 Triglycerides 93 mg/dL (<150) 09/20/17 17:04 Cholesterol 147 mg/dL (<200) 09/20/17 17:04 LDL Cholesterol Direct 77 mg/dL (75-193) 09/20/17 17:04 HDL Cholesterol 61 mg/dL (23-92) 09/20/17 17:04 Amylase 10 U/L (29-103) L 09/20/17 17:04 Lipase 10 U/L (11-82) L 09/23/17 05:20 Urine Source CLEAN C 09/20/17 17:00 Urine Color YELLOW 09/20/17 17:00 Urine Clarity HAZY (CLEAR) 09/20/17 17:00 Urine pH 6.5 (4.6 - 8.0) 09/20/17 17:00 Ur Specific [place] 1.025 (1.005-1.030) 09/20/17 17:00 Urine Protein 100 mg/dL (NEGATIVE) H 09/20/17 17:00 Urine Glucose (UA) NEGATIVE mg/dL (NEGATIVE) 09/20/17 17:00 Urine Ketones NEGATIVE mg/dL (NEGATIVE) 09/20/17 17:00 Urine Blood LARGE (NEGATIVE) H 09/20/17 17:00 Urine Nitrate NEGATIVE (NEGATIVE) 09/20/17 17:00 Urine Bilirubin SMALL (NEGATIVE) H 09/20/17 17:00 Urine Urobilinogen 2.0 E.U./dL (0.2 - 1.0) 09/20/17 17:00 Ur Leukocyte Esterase NEGATIVE (NEGATIVE) 09/20/17 17:00 Urine RBC 25-50 /hpf (0-5) H 09/20/17 17:00 Urine WBC 2-5 /hpf (0-5) H 09/20/17 17:00 Ur Epithelial Cells OCCASIONAL /lpf (FEW) 09/20/17 17:00 Urine Bacteria FEW /hpf (NONE SEEN) 09/20/17 17:00 Urine Opiates Screen POSITIVE (NEGATIVE) H 09/21/17 15:30 Urine Methadone Screen NEGATIVE (NEGATIVE) 09/21/17 15:30 Ur Barbiturates Screen NEGATIVE (NEGATIVE) 09/21/17 15:30 Ur Tricyclics Screen NEGATIVE (NEGATIVE) 09/21/17 15:30 Ur Phencyclidine Scrn NEGATIVE (NEGATIVE) 09/21/17 15:30 Amphetamines Screen NEGATIVE (NEGATIVE) 09/21/17 15:30 U Methamphetamines Scrn NEGATIVE (NEGATIVE) 09/21/17 15:30 U Benzodiazepines Scrn NEGATIVE (NEGATIVE) 09/21/17 15:30 U Cocaine Metab Screen NEGATIVE (NEGATIVE) 09/21/17 15:30 U Cannabinoids Screen NEGATIVE (NEGATIVE) 09/21/17 15:30 - Physical Exam Vitals and I&O: Vital Signs Temp 98.1 F 09/23/17 04:00 Pulse 75 09/23/17 04:00 Resp 19 09/23/17 04:00 BP 119/73 09/23/17 04:00 Pulse Ox 98 09/23/17 04:00 Intake & Output 09/22/17 09/23/17 09/23/17 18:59 06:59 18:59 Intake Total 250 2306.25 Output Total 550 Balance 250 1756.25 Weight (lbs) 86.183 kg Intake: Intake, IV Amount 250 2106.25 D5-0.45NS w/20 mEq KCL 1, 2006.25 000 ml @ 125 mls/hr IV . Q8H RASHAWN Rx#:[id number] Levofloxacin 750mg/150mL 150 750 mg In 150 ml @ 100 mls/hr IV Q24HR RASHAWN Rx#: [id number] metroNIDAZOLE 500mg/NS 100 100 100mL 500 mg In 100 ml @ 100 mls/hr IV Q8HR RASHAWN Rx #:[id number] Oral 200 Output: Urine 550 Other: # Bowel Movements 0 Active Medications: Current Medications Acetaminophen (Tylenol) 650 mg PO Q4H PRN PRN Reason: FEVER >100 Stop: 11/19/17 22:14 Hydromorphone HCl (Dilaudid) 1 mg IVP Q4H PRN PRN Reason: Pain (Severe) Stop: 11/19/17 22:14 Last Admin: 09/23/17 07:52 Dose: 1 mg Potassium Chloride/Dextrose/Sod Cl (D5-0.45ns W/20 Meq Kcl) 1,000 mls @ 125 mls /hr IV .Q8H RASHAWN Stop: 11/19/17 21:59 Last Admin: 09/23/17 05:13 Dose: 125 mls/hr Metronidazole (Flagyl) 500 mg in 100 mls @ 100 mls/hr IV Q8HR [facility]HAWN Stop: 11/19/17 22:59 Last Admin: 09/23/17 05:08 Dose: 100 mls/hr Levofloxacin (Levaquin Pb) 750 mg in 150 mls @ 100 mls/hr IV Q24HR [facility] Stop: 11/22/17 20:59 Ondansetron HCl (Zofran) 4 mg IV Q4H PRN PRN Reason: Nausea / Vomiting Stop: 11/19/17 22:14 Pantoprazole Sodium (Protonix) 40 mg IVP DAILY [facility] Stop: 11/20/17 08:59 Last Admin: 09/23/17 08:06 Dose: 40 mg
--- NOTE | 2017-09-23 17:00 | General Progress Note ---
Subjective - Review of Systems Service Date: 09/23/17 Subjective: awake and alert no complaint denies abdo pain or nausea Objective - Results Result Diagrams: 09/23/17 05:20 09/23/17 05:20 Recent Labs: Laboratory Last Values WBC 18.9 Th/cmm (4.8-10.8) H 09/23/17 05:20 RBC 4.50 Mil/cmm (4.30-5.70) 09/23/17 05:20 Hgb 13.8 gm/dL (12-16) 09/23/17 05:20 Hct 41.4 % (41.0-60) 09/23/17 05:20 MCV 91.9 fl (80-99) 09/23/17 05:20 MCH 30.7 pg (26.0-30.0) H 09/23/17 05:20 MCHC Differential 33.4 pg (28.0-36.0) 09/23/17 05:20 RDW 13.4 % (11.5-20.0) 09/23/17 05:20 Plt Count 347 Th/cmm (150-400) 09/23/17 05:20 MPV 6.7 fl 09/23/17 05:20 Neutrophils % SYSTEMS MECHANIC 09/23/17 05:20 Band Neutrophils % 5 % (0-10) 09/23/17 05:20 Lymphocytes % SYSTEMS MECHANIC 09/23/17 05:20 Monocytes % SYSTEMS MECHANIC 09/23/17 05:20 Eosinophils % SYSTEMS MECHANIC 09/23/17 05:20 Basophils % SYSTEMS MECHANIC 09/23/17 05:20 Neutrophils (Manual) 80 % (40-80) 09/23/17 05:20 Lymphocytes 3 % (20-50) L 09/23/17 05:20 Monocytes 9 % (2-10) 09/23/17 05:20 Eosinophils 1 % (0-5) 09/23/17 05:20 Metamyelocytes 1 % (0-0) H 09/23/17 05:20 Atypical Lymphocytes 1 % 09/23/17 05:20 Hypochromia 1+ 09/23/17 05:20 Platelet Estimate ADEQUATE (NORMAL) 09/23/17 05:20 Macrocytosis 1+ 09/23/17 05:20 PT 12.3 SECONDS (9.5-11.5) H 09/23/17 05:20 INR 1.17 (0.5-1.4) 09/23/17 05:20 PTT (Actin FS) 28.0 SECONDS (26.0-38.0) 09/23/17 05:20 Sodium 133 mEq/L (136-145) L 09/23/17 05:20 Potassium 3.7 mEq/L (3.5-5.1) 09/23/17 05:20 Chloride 100 mEq/L (98-107) 09/23/17 05:20 Carbon Dioxide 26.3 mEq/L (21.0-31.0) 09/23/17 05:20 Anion Gap 10.4 (7.0-16.0) 09/23/17 05:20 BUN 7 mg/dL (7-25) 09/23/17 05:20 Creatinine 0.6 mg/dL (0.7-1.3) L 09/23/17 05:20 Est GFR ( Amer) > 60.0 ml/min (>90) 09/23/17 05:20 Est GFR (Non-Af Amer) > 60.0 ml/min 09/23/17 05:20 BUN/Creatinine Ratio 11.7 09/23/17 05:20 Glucose 122 mg/dL (70-105) H 09/23/17 05:20 POC Glucose 117 MG/DL (70 - 105) H 09/22/17 06:19 Whole Bld Lactic Acid 1.14 mmol/L (0.60-1.99) 09/20/17 17:04 Calcium 8.6 mg/dL (8.6-10.3) 09/23/17 05:20 Total Bilirubin 1.1 mg/dL (0.3-1.0) H 09/23/17 05:20 AST 20 U/L (13-39) 09/23/17 05:20 ALT 54 U/L (7-52) H 09/23/17 05:20 Alkaline Phosphatase 202 U/L (34-104) H 09/23/17 05:20 Creatine Kinase 32 U/L (30-223) 09/20/17 17:04 Troponin I < 0.01 ng/mL (0.01-0.05) L 09/20/17 17:04 B-Natriuretic Peptide 5.7 pg/mL (5.0-100.0) 09/20/17 17:04 Total Protein 6.6 gm/dL (6.0-8.3) 09/23/17 05:20 Albumin 3.3 gm/dL (4.2-5.5) L 09/23/17 05:20 Globulin 3.3 gm/dL 09/23/17 05:20 Albumin/Globulin Ratio 1.0 (1.0-1.8) 09/23/17 05:20 Triglycerides 93 mg/dL (<150) 09/20/17 17:04 Cholesterol 147 mg/dL (<200) 09/20/17 17:04 LDL Cholesterol Direct 77 mg/dL (75-193) 09/20/17 17:04 HDL Cholesterol 61 mg/dL (23-92) 09/20/17 17:04 Amylase 10 U/L (29-103) L 09/20/17 17:04 Lipase 10 U/L (11-82) L 09/23/17 05:20 Urine Source CLEAN C 09/20/17 17:00 Urine Color YELLOW 09/20/17 17:00 Urine Clarity HAZY (CLEAR) 09/20/17 17:00 Urine pH 6.5 (4.6 - 8.0) 09/20/17 17:00 Ur Specific [place] 1.025 (1.005-1.030) 09/20/17 17:00 Urine Protein 100 mg/dL (NEGATIVE) H 09/20/17 17:00 Urine Glucose (UA) NEGATIVE mg/dL (NEGATIVE) 09/20/17 17:00 Urine Ketones NEGATIVE mg/dL (NEGATIVE) 09/20/17 17:00 Urine Blood LARGE (NEGATIVE) H 09/20/17 17:00 Urine Nitrate NEGATIVE (NEGATIVE) 09/20/17 17:00 Urine Bilirubin SMALL (NEGATIVE) H 09/20/17 17:00 Urine Urobilinogen 2.0 E.U./dL (0.2 - 1.0) 09/20/17 17:00 Ur Leukocyte Esterase NEGATIVE (NEGATIVE) 09/20/17 17:00 Urine RBC 25-50 /hpf (0-5) H 09/20/17 17:00 Urine WBC 2-5 /hpf (0-5) H 09/20/17 17:00 Ur Epithelial Cells OCCASIONAL /lpf (FEW) 09/20/17 17:00 Urine Bacteria FEW /hpf (NONE SEEN) 09/20/17 17:00 Urine Opiates Screen POSITIVE (NEGATIVE) H 09/21/17 15:30 Urine Methadone Screen NEGATIVE (NEGATIVE) 09/21/17 15:30 Ur Barbiturates Screen NEGATIVE (NEGATIVE) 09/21/17 15:30 Ur Tricyclics Screen NEGATIVE (NEGATIVE) 09/21/17 15:30 Ur Phencyclidine Scrn NEGATIVE (NEGATIVE) 09/21/17 15:30 Amphetamines Screen NEGATIVE (NEGATIVE) 09/21/17 15:30 U Methamphetamines Scrn NEGATIVE (NEGATIVE) 09/21/17 15:30 U Benzodiazepines Scrn NEGATIVE (NEGATIVE) 09/21/17 15:30 U Cocaine Metab Screen NEGATIVE (NEGATIVE) 09/21/17 15:30 U Cannabinoids Screen NEGATIVE (NEGATIVE) 09/21/17 15:30 - Physical Exam Vitals and I&O: Vital Signs Temp 98.6 F 09/23/17 11:40 Pulse 93 09/23/17 11:40 Resp 20 09/23/17 11:40 BP 120/72 09/23/17 11:40 Pulse Ox 98 09/23/17 11:40 Intake & Output 09/22/17 09/23/17 09/23/17 18:59 06:59 18:59 Intake Total 250 2406.25 Output Total 550 Balance 250 1856.25 Weight (lbs) 86.183 kg Intake: Intake, IV Amount 250 2206.25 D5-0.45NS w/20 mEq KCL 1, 2006.25 000 ml @ 125 mls/hr IV . Q8H [facility] Rx#:[id number] Levofloxacin 750mg/150mL 150 750 mg In 150 ml @ 100 mls/hr IV Q24HR [facility] Rx#: [id number] metroNIDAZOLE 500mg/NS 100 200 100mL 500 mg In 100 ml @ 100 mls/hr IV Q8HR [facility] Rx #:[id number] Oral 200 Output: Urine 550 Other: # Bowel Movements 0 Active Medications: Current Medications Acetaminophen (Tylenol) 650 mg PO Q4H PRN PRN Reason: FEVER >100 Stop: 11/19/17 22:14 Hydromorphone HCl (Dilaudid) 1 mg IVP Q4H PRN PRN Reason: Pain (Severe) Stop: 11/19/17 22:14 Last Admin: 09/23/17 14:38 Dose: 1 mg Potassium Chloride/Dextrose/Sod Cl (D5-0.45ns W/20 Meq Kcl) 1,000 mls @ 125 mls /hr IV .Q8H [facility] Stop: 11/19/17 21:59 Last Admin: 09/23/17 05:13 Dose: 125 mls/hr Metronidazole (Flagyl) 500 mg in 100 mls @ 100 mls/hr IV Q8HR [facility] Stop: 11/19/17 22:59 Last Admin: 09/23/17 14:38 Dose: 100 mls/hr Levofloxacin (Levaquin Pb) 750 mg in 150 mls @ 100 mls/hr IV Q24HR [facility] Stop: 11/22/17 20:59 Ondansetron HCl (Zofran) 4 mg IV Q4H PRN PRN Reason: Nausea / Vomiting Stop: 11/19/17 22:14 Pantoprazole Sodium (Protonix) 40 mg IVP DAILY [facility] Stop: 11/20/17 08:59 Last Admin: 09/23/17 08:06 Dose: 40 mg General: Alert, Oriented x3, Cooperative, No acute distress HEENT: Atraumatic, PERRLA Neck: Supple, JVD Cardiovascular: Regular rate, Normal S1, Normal S2 Lungs: Clear to auscultation Abdomen: Bowel sounds, Soft Psych/Mental Status: Mental status NL, Mood NL Assessment/Plan - Assessment Assessment: 1.ACUTE CHOLECYSTITIS. 2.CHOLELITHIASIS - Plan Plan: cont current treatment
[2017-09-24] MEDS: metroNIDAZOLE 500mg/NS 100mL 500 MG/100 ML BAG IV SCH ×3 (04:32→20:34)
[2017-09-24 05:24] LABS: % BASOPHILS 0.7 % (0.0-2.0); % EOSINOPHILS 1.4 % (0.0-5.0); % LYMPHOCYTES 10.2 % (20.0-50.0); % MONOCYTES 11.2 % (2.0-10.0); % NEUTROPHILS 76.5 % (40.0-80.0); BASOPHILE ABSOLUTE 0.1 Th/cumm (0-0.2); EOSINOPHILE ABSOLUTE 0.2 Th/cmm (0.1-0.4); HEMOGLOBIN 13.7 gm/dL (12-16); LYMPHOCYTE ABSOLUTE 1.5 Th/cmm (1.5-3.0); MEAN CELL VOLUME 93.2 fl (80-99); MEAN CORPUSCULAR HEMOGLOBIN 30.4 pg (26.0-30.0); MEAN CORPUSCULAR HGB CONC 32.6 pg (28.0-36.0); MEAN PLATELET VOLUME 6.3 fl; MONOCYTE ABSOLUTE 1.6 Th/cmm (0.3-1.0); NEUTROPHILE ABSOLUTE 11.2 Th/cmm (1.8-8.0); PLATELET COUNT 393 Th/cmm (150-400); RED BLOOD COUNT 4.51 Mil/cmm (4.30-5.70); RED CELL DISTRIBUTION WIDTH 12.8 % (11.5-20.0)
[2017-09-24 05:27] LABS: WHITE BLOOD COUNT 14.6 Th/cmm (4.8-10.8)
[2017-09-24 05:47] LABS: ALBUMIN 3.3 gm/dL (4.2-5.5); ALKALINE PHOSPHATASE 199 U/L (34-104); BILIRUBIN,TOTAL 0.6 mg/dL (0.3-1.0); BUN - UREA NITROGEN 7 mg/dL (7-25); CALCIUM SERUM 8.7 mg/dL (8.6-10.3); CARBON DIOXIDE 27.2 mEq/L (21.0-31.0); CHLORIDE 101 mEq/L (98-107); CREATININE - SERUM 0.6 mg/dL (0.7-1.3); GFR AFRICAN-AMERICAN > 60.0 ml/min (>90); GFR NON AFRICAN-AMERICAN > 60.0 ml/min; GLUCOSE 112 mg/dL (70-105); POTASSIUM SERUM 4.2 mEq/L (3.5-5.1); SGOT 14 U/L (13-39); SGPT/ALT 39 U/L (7-52); SODIUM SERUM 134 mEq/L (136-145); TOTAL PROTEIN,SERUM 6.6 gm/dL (6.0-8.3)
[2017-09-24] MEDS: D5-0.45NS w/20 mEq KCL 1,000 ML IV SCH ×3 (06:36→22:51)
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
[2017-09-24] MEDS: HYDROmorphone 1 mg/mL 1mL Syr IVP PRN ×3 (08:39→22:50)
--- NOTE | 2017-09-24 12:27 | General Progress Note ---
Subjective - Review of Systems Service Date: 09/24/17 Events since last encounter: labs noted will schedule for surgery tomorrow Objective - Results Result Diagrams: 09/24/17 05:14 09/24/17 05:14 Recent Labs: Laboratory Last Values WBC 14.6 Th/cmm (4.8-10.8) H D 09/24/17 05:14 RBC 4.51 Mil/cmm (4.30-5.70) 09/24/17 05:14 Hgb 13.7 gm/dL (12-16) 09/24/17 05:14 Hct 42.0 % (41.0-60) 09/24/17 05:14 MCV 93.2 fl (80-99) 09/24/17 05:14 MCH 30.4 pg (26.0-30.0) H 09/24/17 05:14 MCHC Differential 32.6 pg (28.0-36.0) 09/24/17 05:14 RDW 12.8 % (11.5-20.0) 09/24/17 05:14 Plt Count 393 Th/cmm (150-400) 09/24/17 05:14 MPV 6.3 fl 09/24/17 05:14 Neutrophils % 76.5 % (40.0-80.0) 09/24/17 05:14 Band Neutrophils % 5 % (0-10) 09/23/17 05:20 Lymphocytes % 10.2 % (20.0-50.0) L 09/24/17 05:14 Monocytes % 11.2 % (2.0-10.0) H 09/24/17 05:14 Eosinophils % 1.4 % (0.0-5.0) 09/24/17 05:14 Basophils % 0.7 % (0.0-2.0) 09/24/17 05:14 Neutrophils (Manual) 80 % (40-80) 09/23/17 05:20 Lymphocytes 3 % (20-50) L 09/23/17 05:20 Monocytes 9 % (2-10) 09/23/17 05:20 Eosinophils 1 % (0-5) 09/23/17 05:20 Metamyelocytes 1 % (0-0) H 09/23/17 05:20 Atypical Lymphocytes 1 % 09/23/17 05:20 Hypochromia 1+ 09/23/17 05:20 Platelet Estimate ADEQUATE (NORMAL) 09/23/17 05:20 Macrocytosis 1+ 09/23/17 05:20 PT 12.3 SECONDS (9.5-11.5) H 09/23/17 05:20 INR 1.17 (0.5-1.4) 09/23/17 05:20 PTT (Actin FS) 28.0 SECONDS (26.0-38.0) 09/23/17 05:20 Sodium 134 mEq/L (136-145) L 09/24/17 05:14 Potassium 4.2 mEq/L (3.5-5.1) 09/24/17 05:14 Chloride 101 mEq/L (98-107) 09/24/17 05:14 Carbon Dioxide 27.2 mEq/L (21.0-31.0) 09/24/17 05:14 Anion Gap 10.0 (7.0-16.0) 09/24/17 05:14 BUN 7 mg/dL (7-25) 09/24/17 05:14 Creatinine 0.6 mg/dL (0.7-1.3) L 09/24/17 05:14 Est GFR ( Amer) > 60.0 ml/min (>90) 09/24/17 05:14 Est GFR (Non-Af Amer) > 60.0 ml/min 09/24/17 05:14 BUN/Creatinine Ratio 11.7 09/24/17 05:14 Glucose 112 mg/dL (70-105) H 09/24/17 05:14 POC Glucose 117 MG/DL (70 - 105) H 09/22/17 06:19 Whole Bld Lactic Acid 1.14 mmol/L (0.60-1.99) 09/20/17 17:04 Calcium 8.7 mg/dL (8.6-10.3) 09/24/17 05:14 Total Bilirubin 0.6 mg/dL (0.3-1.0) 09/24/17 05:14 AST 14 U/L (13-39) 09/24/17 05:14 ALT 39 U/L (7-52) 09/24/17 05:14 Alkaline Phosphatase 199 U/L (34-104) H 09/24/17 05:14 Creatine Kinase 32 U/L (30-223) 09/20/17 17:04 Troponin I < 0.01 ng/mL (0.01-0.05) L 09/20/17 17:04 B-Natriuretic Peptide 5.7 pg/mL (5.0-100.0) 09/20/17 17:04 Total Protein 6.6 gm/dL (6.0-8.3) 09/24/17 05:14 Albumin 3.3 gm/dL (4.2-5.5) L 09/24/17 05:14 Globulin 3.3 gm/dL 09/24/17 05:14 Albumin/Globulin Ratio 1.0 (1.0-1.8) 09/24/17 05:14 Triglycerides 93 mg/dL (<150) 09/20/17 17:04 Cholesterol 147 mg/dL (<200) 09/20/17 17:04 LDL Cholesterol Direct 77 mg/dL (75-193) 09/20/17 17:04 HDL Cholesterol 61 mg/dL (23-92) 09/20/17 17:04 Amylase 10 U/L (29-103) L 09/20/17 17:04 Lipase 10 U/L (11-82) L 09/23/17 05:20 Urine Source CLEAN C 09/20/17 17:00 Urine Color YELLOW 09/20/17 17:00 Urine Clarity HAZY (CLEAR) 09/20/17 17:00 Urine pH 6.5 (4.6 - 8.0) 09/20/17 17:00 Ur Specific [place] 1.025 (1.005-1.030) 09/20/17 17:00 Urine Protein 100 mg/dL (NEGATIVE) H 09/20/17 17:00 Urine Glucose (UA) NEGATIVE mg/dL (NEGATIVE) 09/20/17 17:00 Urine Ketones NEGATIVE mg/dL (NEGATIVE) 09/20/17 17:00 Urine Blood LARGE (NEGATIVE) H 09/20/17 17:00 Urine Nitrate NEGATIVE (NEGATIVE) 09/20/17 17:00 Urine Bilirubin SMALL (NEGATIVE) H 09/20/17 17:00 Urine Urobilinogen 2.0 E.U./dL (0.2 - 1.0) 09/20/17 17:00 Ur Leukocyte Esterase NEGATIVE (NEGATIVE) 09/20/17 17:00 Urine RBC 25-50 /hpf (0-5) H 09/20/17 17:00 Urine WBC 2-5 /hpf (0-5) H 09/20/17 17:00 Ur Epithelial Cells OCCASIONAL /lpf (FEW) 09/20/17 17:00 Urine Bacteria FEW /hpf (NONE SEEN) 09/20/17 17:00 Urine Opiates Screen POSITIVE (NEGATIVE) H 09/21/17 15:30 Urine Methadone Screen NEGATIVE (NEGATIVE) 09/21/17 15:30 Ur Barbiturates Screen NEGATIVE (NEGATIVE) 09/21/17 15:30 Ur Tricyclics Screen NEGATIVE (NEGATIVE) 09/21/17 15:30 Ur Phencyclidine Scrn NEGATIVE (NEGATIVE) 09/21/17 15:30 Amphetamines Screen NEGATIVE (NEGATIVE) 09/21/17 15:30 U Methamphetamines Scrn NEGATIVE (NEGATIVE) 09/21/17 15:30 U Benzodiazepines Scrn NEGATIVE (NEGATIVE) 09/21/17 15:30 U Cocaine Metab Screen NEGATIVE (NEGATIVE) 09/21/17 15:30 U Cannabinoids Screen NEGATIVE (NEGATIVE) 09/21/17 15:30 - Physical Exam Vitals and I&O: Vital Signs Temp 97.1 F 09/24/17 08:08 Pulse 78 09/24/17 08:08 Resp 20 09/24/17 08:08 BP 108/68 09/24/17 08:08 Pulse Ox 98 09/24/17 08:08 Intake & Output 09/23/17 09/24/17 09/24/17 18:59 06:59 18:59 Intake Total 1100 1100 Balance 1100 1100 Weight (lbs) 86.183 kg Intake: Intake, IV Amount 1100 1100 D5-0.45NS w/20 mEq KCL 1, 1000 1000 000 ml @ 125 mls/hr IV . Q8H [facility] Rx#:[id number] metroNIDAZOLE 500mg/NS 100 100 100mL 500 mg In 100 ml @ 100 mls/hr IV Q8HR [facility] Rx #:[id number] Active Medications: Current Medications Acetaminophen (Tylenol) 650 mg PO Q4H PRN PRN Reason: FEVER >100 Stop: 11/19/17 22:14 Hydromorphone HCl (Dilaudid) 1 mg IVP Q4H PRN PRN Reason: Pain (Severe) Stop: 11/19/17 22:14 Last Admin: 09/24/17 08:39 Dose: 1 mg Potassium Chloride/Dextrose/Sod Cl (D5-0.45ns W/20 Meq Kcl) 1,000 mls @ 125 mls /hr IV .Q8H [facility] Stop: 11/19/17 21:59 Last Admin: 09/24/17 06:36 Dose: 125 mls/hr Metronidazole (Flagyl) 500 mg in 100 mls @ 100 mls/hr IV Q8HR [facility] Stop: 11/19/17 22:59 Last Admin: 09/24/17 04:32 Dose: 100 mls/hr Levofloxacin (Levaquin Pb) 750 mg in 150 mls @ 100 mls/hr IV Q24HR [facility] Stop: 11/22/17 20:59 Last Admin: 09/23/17 23:24 Dose: 100 mls/hr Ondansetron HCl (Zofran) 4 mg IV Q4H PRN PRN Reason: Nausea / Vomiting Stop: 11/19/17 22:14 Pantoprazole Sodium (Protonix) 40 mg IVP DAILY [facility] Stop: 11/20/17 08:59 Last Admin: 09/24/17 08:39 Dose: 40 mg General: Alert, Oriented x3, Cooperative, No acute distress HEENT: Atraumatic, PERRLA Neck: Supple, JVD Cardiovascular: Regular rate, Normal S1, Normal S2 Lungs: Clear to auscultation Abdomen: Bowel sounds, Soft Psych/Mental Status: Mental status NL, Mood NL
[2017-09-24] MEDS ORDERED: Magnesium Hydroxide (MOM) 30 mL UDC PO ONE (12:28)
--- NOTE | 2017-09-24 13:45 | General Progress Note ---
Subjective - Review of Systems Service Date: 09/24/17 Subjective: awake and alert resting comfortably in bed Objective - Results Result Diagrams: 09/24/17 05:14 09/24/17 05:14 Recent Labs: Laboratory Last Values WBC 14.6 Th/cmm (4.8-10.8) H D 09/24/17 05:14 RBC 4.51 Mil/cmm (4.30-5.70) 09/24/17 05:14 Hgb 13.7 gm/dL (12-16) 09/24/17 05:14 Hct 42.0 % (41.0-60) 09/24/17 05:14 MCV 93.2 fl (80-99) 09/24/17 05:14 MCH 30.4 pg (26.0-30.0) H 09/24/17 05:14 MCHC Differential 32.6 pg (28.0-36.0) 09/24/17 05:14 RDW 12.8 % (11.5-20.0) 09/24/17 05:14 Plt Count 393 Th/cmm (150-400) 09/24/17 05:14 MPV 6.3 fl 09/24/17 05:14 Neutrophils % 76.5 % (40.0-80.0) 09/24/17 05:14 Band Neutrophils % 5 % (0-10) 09/23/17 05:20 Lymphocytes % 10.2 % (20.0-50.0) L 09/24/17 05:14 Monocytes % 11.2 % (2.0-10.0) H 09/24/17 05:14 Eosinophils % 1.4 % (0.0-5.0) 09/24/17 05:14 Basophils % 0.7 % (0.0-2.0) 09/24/17 05:14 Neutrophils (Manual) 80 % (40-80) 09/23/17 05:20 Lymphocytes 3 % (20-50) L 09/23/17 05:20 Monocytes 9 % (2-10) 09/23/17 05:20 Eosinophils 1 % (0-5) 09/23/17 05:20 Metamyelocytes 1 % (0-0) H 09/23/17 05:20 Atypical Lymphocytes 1 % 09/23/17 05:20 Hypochromia 1+ 09/23/17 05:20 Platelet Estimate ADEQUATE (NORMAL) 09/23/17 05:20 Macrocytosis 1+ 09/23/17 05:20 PT 12.3 SECONDS (9.5-11.5) H 09/23/17 05:20 INR 1.17 (0.5-1.4) 09/23/17 05:20 PTT (Actin FS) 28.0 SECONDS (26.0-38.0) 09/23/17 05:20 Sodium 134 mEq/L (136-145) L 09/24/17 05:14 Potassium 4.2 mEq/L (3.5-5.1) 09/24/17 05:14 Chloride 101 mEq/L (98-107) 09/24/17 05:14 Carbon Dioxide 27.2 mEq/L (21.0-31.0) 09/24/17 05:14 Anion Gap 10.0 (7.0-16.0) 09/24/17 05:14 BUN 7 mg/dL (7-25) 09/24/17 05:14 Creatinine 0.6 mg/dL (0.7-1.3) L 09/24/17 05:14 Est GFR ( Amer) > 60.0 ml/min (>90) 09/24/17 05:14 Est GFR (Non-Af Amer) > 60.0 ml/min 09/24/17 05:14 BUN/Creatinine Ratio 11.7 09/24/17 05:14 Glucose 112 mg/dL (70-105) H 09/24/17 05:14 POC Glucose 117 MG/DL (70 - 105) H 09/22/17 06:19 Whole Bld Lactic Acid 1.14 mmol/L (0.60-1.99) 09/20/17 17:04 Calcium 8.7 mg/dL (8.6-10.3) 09/24/17 05:14 Total Bilirubin 0.6 mg/dL (0.3-1.0) 09/24/17 05:14 AST 14 U/L (13-39) 09/24/17 05:14 ALT 39 U/L (7-52) 09/24/17 05:14 Alkaline Phosphatase 199 U/L (34-104) H 09/24/17 05:14 Creatine Kinase 32 U/L (30-223) 09/20/17 17:04 Troponin I < 0.01 ng/mL (0.01-0.05) L 09/20/17 17:04 B-Natriuretic Peptide 5.7 pg/mL (5.0-100.0) 09/20/17 17:04 Total Protein 6.6 gm/dL (6.0-8.3) 09/24/17 05:14 Albumin 3.3 gm/dL (4.2-5.5) L 09/24/17 05:14 Globulin 3.3 gm/dL 09/24/17 05:14 Albumin/Globulin Ratio 1.0 (1.0-1.8) 09/24/17 05:14 Triglycerides 93 mg/dL (<150) 09/20/17 17:04 Cholesterol 147 mg/dL (<200) 09/20/17 17:04 LDL Cholesterol Direct 77 mg/dL (75-193) 09/20/17 17:04 HDL Cholesterol 61 mg/dL (23-92) 09/20/17 17:04 Amylase 10 U/L (29-103) L 09/20/17 17:04 Lipase 10 U/L (11-82) L 09/23/17 05:20 Urine Source CLEAN C 09/20/17 17:00 Urine Color YELLOW 09/20/17 17:00 Urine Clarity HAZY (CLEAR) 09/20/17 17:00 Urine pH 6.5 (4.6 - 8.0) 09/20/17 17:00 Ur Specific [place] 1.025 (1.005-1.030) 09/20/17 17:00 Urine Protein 100 mg/dL (NEGATIVE) H 09/20/17 17:00 Urine Glucose (UA) NEGATIVE mg/dL (NEGATIVE) 09/20/17 17:00 Urine Ketones NEGATIVE mg/dL (NEGATIVE) 09/20/17 17:00 Urine Blood LARGE (NEGATIVE) H 09/20/17 17:00 Urine Nitrate NEGATIVE (NEGATIVE) 09/20/17 17:00 Urine Bilirubin SMALL (NEGATIVE) H 09/20/17 17:00 Urine Urobilinogen 2.0 E.U./dL (0.2 - 1.0) 09/20/17 17:00 Ur Leukocyte Esterase NEGATIVE (NEGATIVE) 09/20/17 17:00 Urine RBC 25-50 /hpf (0-5) H 09/20/17 17:00 Urine WBC 2-5 /hpf (0-5) H 09/20/17 17:00 Ur Epithelial Cells OCCASIONAL /lpf (FEW) 09/20/17 17:00 Urine Bacteria FEW /hpf (NONE SEEN) 09/20/17 17:00 Urine Opiates Screen POSITIVE (NEGATIVE) H 09/21/17 15:30 Urine Methadone Screen NEGATIVE (NEGATIVE) 09/21/17 15:30 Ur Barbiturates Screen NEGATIVE (NEGATIVE) 09/21/17 15:30 Ur Tricyclics Screen NEGATIVE (NEGATIVE) 09/21/17 15:30 Ur Phencyclidine Scrn NEGATIVE (NEGATIVE) 09/21/17 15:30 Amphetamines Screen NEGATIVE (NEGATIVE) 09/21/17 15:30 U Methamphetamines Scrn NEGATIVE (NEGATIVE) 09/21/17 15:30 U Benzodiazepines Scrn NEGATIVE (NEGATIVE) 09/21/17 15:30 U Cocaine Metab Screen NEGATIVE (NEGATIVE) 09/21/17 15:30 U Cannabinoids Screen NEGATIVE (NEGATIVE) 09/21/17 15:30 - Physical Exam Vitals and I&O: Vital Signs Temp 97.1 F 09/24/17 08:08 Pulse 78 09/24/17 08:08 Resp 20 09/24/17 08:08 BP 108/68 09/24/17 08:08 Pulse Ox 98 09/24/17 08:08 Intake & Output 09/23/17 09/24/17 09/24/17 18:59 06:59 18:59 Intake Total 1100 1100 Balance 1100 1100 Weight (lbs) 86.183 kg Intake: Intake, IV Amount 1100 1100 D5-0.45NS w/20 mEq KCL 1, 1000 1000 000 ml @ 125 mls/hr IV . Q8H [facility] Rx#:[id number] metroNIDAZOLE 500mg/NS 100 100 100mL 500 mg In 100 ml @ 100 mls/hr IV Q8HR [facility] Rx #:[id number] Active Medications: Current Medications Acetaminophen (Tylenol) 650 mg PO Q4H PRN PRN Reason: FEVER >100 Stop: 11/19/17 22:14 Hydromorphone HCl (Dilaudid) 1 mg IVP Q4H PRN PRN Reason: Pain (Severe) Stop: 04/01/18 22:14 Last Admin: 09/24/17 08:39 Dose: 1 mg Potassium Chloride/Dextrose/Sod Cl (D5-0.45ns W/20 Meq Kcl) 1,000 mls @ 125 mls /hr IV .Q8H [facility] Stop: 11/19/17 21:59 Last Admin: 09/24/17 06:36 Dose: 125 mls/hr Metronidazole (Flagyl) 500 mg in 100 mls @ 100 mls/hr IV Q8HR [facility] Stop: 11/19/17 22:59 Last Admin: 09/24/17 04:32 Dose: 100 mls/hr Levofloxacin (Levaquin Pb) 750 mg in 150 mls @ 100 mls/hr IV Q24HR [facility] Stop: 11/22/17 20:59 Last Admin: 09/23/17 23:24 Dose: 100 mls/hr Ondansetron HCl (Zofran) 4 mg IV Q4H PRN PRN Reason: Nausea / Vomiting Stop: 11/19/17 22:14 Pantoprazole Sodium (Protonix) 40 mg IVP DAILY [facility] Stop: 11/20/17 08:59 Last Admin: 09/24/17 08:39 Dose: 40 mg General: Alert, Oriented x3, Cooperative, No acute distress HEENT: Atraumatic, PERRLA Neck: Supple, JVD Cardiovascular: Regular rate, Normal S1, Normal S2 Lungs: Clear to auscultation Abdomen: Bowel sounds, Soft Psych/Mental Status: Mental status NL, Mood NL Assessment/Plan - Assessment Assessment: 1.ACUTE CHOLECYSTITIS. 2.CHOLELITHIASIS - Plan Plan: cont current treatment
--- NOTE | 2017-09-24 17:31 | Infectious Disease Prog Note ---
Infectious Disease Subjective - Review of Systems Service Date: 09/24/17 Subjective: cc cholecystitis hpi- pt schedule for cholecystectomy ros no fevr o/e vs chest claer abd soft guerrero ext pulse Infectious Disease Objective - Results Result Diagrams: 09/24/17 05:14 09/24/17 05:14 Recent Labs: Laboratory Last Values WBC 14.6 Th/cmm (4.8-10.8) H D 09/24/17 05:14 RBC 4.51 Mil/cmm (4.30-5.70) 09/24/17 05:14 Hgb 13.7 gm/dL (12-16) 09/24/17 05:14 Hct 42.0 % (41.0-60) 09/24/17 05:14 MCV 93.2 fl (80-99) 09/24/17 05:14 MCH 30.4 pg (26.0-30.0) H 09/24/17 05:14 MCHC Differential 32.6 pg (28.0-36.0) 09/24/17 05:14 RDW 12.8 % (11.5-20.0) 09/24/17 05:14 Plt Count 393 Th/cmm (150-400) 09/24/17 05:14 MPV 6.3 fl 09/24/17 05:14 Neutrophils % 76.5 % (40.0-80.0) 09/24/17 05:14 Band Neutrophils % 5 % (0-10) 09/23/17 05:20 Lymphocytes % 10.2 % (20.0-50.0) L 09/24/17 05:14 Monocytes % 11.2 % (2.0-10.0) H 09/24/17 05:14 Eosinophils % 1.4 % (0.0-5.0) 09/24/17 05:14 Basophils % 0.7 % (0.0-2.0) 09/24/17 05:14 Neutrophils (Manual) 80 % (40-80) 09/23/17 05:20 Lymphocytes 3 % (20-50) L 09/23/17 05:20 Monocytes 9 % (2-10) 09/23/17 05:20 Eosinophils 1 % (0-5) 09/23/17 05:20 Metamyelocytes 1 % (0-0) H 09/23/17 05:20 Atypical Lymphocytes 1 % 09/23/17 05:20 Hypochromia 1+ 09/23/17 05:20 Platelet Estimate ADEQUATE (NORMAL) 09/23/17 05:20 Macrocytosis 1+ 09/23/17 05:20 PT 12.3 SECONDS (9.5-11.5) H 09/23/17 05:20 INR 1.17 (0.5-1.4) 09/23/17 05:20 PTT (Actin FS) 28.0 SECONDS (26.0-38.0) 09/23/17 05:20 Sodium 134 mEq/L (136-145) L 09/24/17 05:14 Potassium 4.2 mEq/L (3.5-5.1) 09/24/17 05:14 Chloride 101 mEq/L (98-107) 09/24/17 05:14 Carbon Dioxide 27.2 mEq/L (21.0-31.0) 09/24/17 05:14 Anion Gap 10.0 (7.0-16.0) 09/24/17 05:14 BUN 7 mg/dL (7-25) 09/24/17 05:14 Creatinine 0.6 mg/dL (0.7-1.3) L 09/24/17 05:14 Est GFR ( Amer) > 60.0 ml/min (>90) 09/24/17 05:14 Est GFR (Non-Af Amer) > 60.0 ml/min 09/24/17 05:14 BUN/Creatinine Ratio 11.7 09/24/17 05:14 Glucose 112 mg/dL (70-105) H 09/24/17 05:14 POC Glucose 117 MG/DL (70 - 105) H 09/22/17 06:19 Whole Bld Lactic Acid 1.14 mmol/L (0.60-1.99) 09/20/17 17:04 Calcium 8.7 mg/dL (8.6-10.3) 09/24/17 05:14 Total Bilirubin 0.6 mg/dL (0.3-1.0) 09/24/17 05:14 AST 14 U/L (13-39) 09/24/17 05:14 ALT 39 U/L (7-52) 09/24/17 05:14 Alkaline Phosphatase 199 U/L (34-104) H 09/24/17 05:14 Creatine Kinase 32 U/L (30-223) 09/20/17 17:04 Troponin I < 0.01 ng/mL (0.01-0.05) L 09/20/17 17:04 B-Natriuretic Peptide 5.7 pg/mL (5.0-100.0) 09/20/17 17:04 Total Protein 6.6 gm/dL (6.0-8.3) 09/24/17 05:14 Albumin 3.3 gm/dL (4.2-5.5) L 09/24/17 05:14 Globulin 3.3 gm/dL 09/24/17 05:14 Albumin/Globulin Ratio 1.0 (1.0-1.8) 09/24/17 05:14 Triglycerides 93 mg/dL (<150) 09/20/17 17:04 Cholesterol 147 mg/dL (<200) 09/20/17 17:04 LDL Cholesterol Direct 77 mg/dL (75-193) 09/20/17 17:04 HDL Cholesterol 61 mg/dL (23-92) 09/20/17 17:04 Amylase 10 U/L (29-103) L 09/20/17 17:04 Lipase 10 U/L (11-82) L 09/23/17 05:20 Urine Source CLEAN C 09/20/17 17:00 Urine Color YELLOW 09/20/17 17:00 Urine Clarity HAZY (CLEAR) 09/20/17 17:00 Urine pH 6.5 (4.6 - 8.0) 09/20/17 17:00 Ur Specific [place] 1.025 (1.005-1.030) 09/20/17 17:00 Urine Protein 100 mg/dL (NEGATIVE) H 09/20/17 17:00 Urine Glucose (UA) NEGATIVE mg/dL (NEGATIVE) 09/20/17 17:00 Urine Ketones NEGATIVE mg/dL (NEGATIVE) 09/20/17 17:00 Urine Blood LARGE (NEGATIVE) H 09/20/17 17:00 Urine Nitrate NEGATIVE (NEGATIVE) 09/20/17 17:00 Urine Bilirubin SMALL (NEGATIVE) H 09/20/17 17:00 Urine Urobilinogen 2.0 E.U./dL (0.2 - 1.0) 09/20/17 17:00 Ur Leukocyte Esterase NEGATIVE (NEGATIVE) 09/20/17 17:00 Urine RBC 25-50 /hpf (0-5) H 09/20/17 17:00 Urine WBC 2-5 /hpf (0-5) H 09/20/17 17:00 Ur Epithelial Cells OCCASIONAL /lpf (FEW) 09/20/17 17:00 Urine Bacteria FEW /hpf (NONE SEEN) 09/20/17 17:00 Urine Opiates Screen POSITIVE (NEGATIVE) H 09/21/17 15:30 Urine Methadone Screen NEGATIVE (NEGATIVE) 09/21/17 15:30 Ur Barbiturates Screen NEGATIVE (NEGATIVE) 09/21/17 15:30 Ur Tricyclics Screen NEGATIVE (NEGATIVE) 09/21/17 15:30 Ur Phencyclidine Scrn NEGATIVE (NEGATIVE) 09/21/17 15:30 Amphetamines Screen NEGATIVE (NEGATIVE) 09/21/17 15:30 U Methamphetamines Scrn NEGATIVE (NEGATIVE) 09/21/17 15:30 U Benzodiazepines Scrn NEGATIVE (NEGATIVE) 09/21/17 15:30 U Cocaine Metab Screen NEGATIVE (NEGATIVE) 09/21/17 15:30 U Cannabinoids Screen NEGATIVE (NEGATIVE) 09/21/17 15:30 - Physical Exam Vitals and I&O: Vital Signs Temp 98.1 F 09/24/17 12:18 Pulse 72 09/24/17 12:18 Resp 20 09/24/17 12:18 BP 123/72 09/24/17 12:18 Pulse Ox 97 09/24/17 12:18 Intake & Output 09/23/17 09/24/17 09/24/17 18:59 06:59 18:59 Intake Total 1100 1200 1014.583 Balance 1100 1200 1014.583 Weight (lbs) 86.183 kg Intake: Intake, IV Amount 1100 1200 1014.583 D5-0.45NS w/20 mEq KCL 1, 1000 1000 914.583 000 ml @ 125 mls/hr IV . Q8H [facility] Rx#:[id number] metroNIDAZOLE 500mg/NS 100 200 100 100mL 500 mg In 100 ml @ 100 mls/hr IV Q8HR [facility] Rx #:[id number] Other: Stool Characteristics Soft Brown Active Medications: Current Medications Acetaminophen (Tylenol) 650 mg PO Q4H PRN PRN Reason: FEVER >100 Stop: 11/19/17 22:14 Hydromorphone HCl (Dilaudid) 1 mg IVP Q4H PRN PRN Reason: Pain (Severe) Stop: 11/19/17 22:14 Last Admin: 09/24/17 08:39 Dose: 1 mg Potassium Chloride/Dextrose/Sod Cl (D5-0.45ns W/20 Meq Kcl) 1,000 mls @ 125 mls /hr IV .Q8H [facility] Stop: 11/19/17 21:59 Last Admin: 09/24/17 13:55 Dose: 125 mls/hr Metronidazole (Flagyl) 500 mg in 100 mls @ 100 mls/hr IV Q8HR [facility] Stop: 11/19/17 22:59 Last Infusion: 09/24/17 16:50 Dose: Infused Levofloxacin (Levaquin Pb) 750 mg in 150 mls @ 100 mls/hr IV Q24HR [facility] Stop: 11/22/17 20:59 Last Admin: 09/23/17 23:24 Dose: 100 mls/hr Ondansetron HCl (Zofran) 4 mg IV Q4H PRN PRN Reason: Nausea / Vomiting Stop: 11/19/17 22:14 Pantoprazole Sodium (Protonix) 40 mg IVP DAILY [facility] Stop: 11/20/17 08:59 Last Admin: 09/24/17 08:39 Dose: 40 mg
[2017-09-24] MEDS: Levofloxacin 750mg/150mL 750 MG/150 ML BAG IV SCH (21:40)
[2017-09-25] MEDS: HYDROmorphone 1 mg/mL 1mL Syr IVP PRN ×5 (03:09→21:57)
[2017-09-25] MEDS: metroNIDAZOLE 500mg/NS 100mL 500 MG/100 ML BAG IV SCH ×3 (04:59→20:19)
[2017-09-25 05:53] LABS: INR 1.09 (0.5-1.4); PROTHROMBIN TIME (TEST) 11.3 SECONDS (9.5-11.5)
[2017-09-25 06:01] LABS: ANION GAP 10.1 (7.0-16.0); BUN - UREA NITROGEN 11 mg/dL (7-25); CALCIUM SERUM 8.6 mg/dL (8.6-10.3); CHLORIDE 102 mEq/L (98-107); CREATININE - SERUM 0.7 mg/dL (0.7-1.3); GFR AFRICAN-AMERICAN > 60.0 ml/min (>90); GFR NON AFRICAN-AMERICAN > 60.0 ml/min; GLUCOSE 109 mg/dL (70-105); POTASSIUM SERUM 4.1 mEq/L (3.5-5.1); SODIUM SERUM 134 mEq/L (136-145)
[2017-09-25 06:04] LABS: % BASOPHILS 0.1 % (0.0-2.0); % LYMPHOCYTES 16.9 % (20.0-50.0); % MONOCYTES 10.4 % (2.0-10.0); % NEUTROPHILS 70.6 % (40.0-80.0); EOSINOPHILE ABSOLUTE 0.2 Th/cmm (0.1-0.4); HEMATOCRIT 43.1 % (41.0-60); HEMOGLOBIN 14.2 gm/dL (12-16); LYMPHOCYTE ABSOLUTE 1.7 Th/cmm (1.5-3.0); MEAN CELL VOLUME 93.5 fl (80-99); MEAN CORPUSCULAR HEMOGLOBIN 30.8 pg (26.0-30.0); MEAN CORPUSCULAR HGB CONC 32.9 pg (28.0-36.0); MEAN PLATELET VOLUME 6.6 fl; MONOCYTE ABSOLUTE 1.1 Th/cmm (0.3-1.0); NEUTROPHILE ABSOLUTE 7.2 Th/cmm (1.8-8.0); PLATELET COUNT 450 Th/cmm (150-400); RED BLOOD COUNT 4.61 Mil/cmm (4.30-5.70); RED CELL DISTRIBUTION WIDTH 13.3 % (11.5-20.0)
[2017-09-25 06:06] LABS: WHITE BLOOD COUNT 10.2 Th/cmm (4.8-10.8)
[2017-09-25] MEDS: D5-0.45NS w/20 mEq KCL 1,000 ML IV SCH (11:50)
[2017-09-25] MEDS ORDERED: fentaNYL Citrate 100 mcg/2mL Vial ONE (15:16)
[2017-09-25] MEDS ORDERED: Neostigmine 10mg/10mL Vial ONE (16:01)
[2017-09-25] MEDS ORDERED: Propofol **SURGERY USE ONLY** 20 ML IV ONE (16:01)
[2017-09-25] MEDS ORDERED: Lidocaine 2% Vial 20 mL Vial ONE (16:01)
--- NOTE | 2017-09-25 16:53 | General Progress Note ---
Subjective - Review of Systems Service Date: 09/25/17 Events since last encounter: gangreous GB removed, C and S done TALIB left in subhepatic space Objective - Results Result Diagrams: 09/25/17 05:20 09/25/17 05:20 Recent Labs: Laboratory Last Values WBC 10.2 Th/cmm (4.8-10.8) D 09/25/17 05:20 RBC 4.61 Mil/cmm (4.30-5.70) 09/25/17 05:20 Hgb 14.2 gm/dL (12-16) 09/25/17 05:20 Hct 43.1 % (41.0-60) 09/25/17 05:20 MCV 93.5 fl (80-99) 09/25/17 05:20 MCH 30.8 pg (26.0-30.0) H 09/25/17 05:20 MCHC Differential 32.9 pg (28.0-36.0) 09/25/17 05:20 RDW 13.3 % (11.5-20.0) 09/25/17 05:20 Plt Count 450 Th/cmm (150-400) H 09/25/17 05:20 MPV 6.6 fl 09/25/17 05:20 Neutrophils % 70.6 % (40.0-80.0) 09/25/17 05:20 Band Neutrophils % 5 % (0-10) 09/23/17 05:20 Lymphocytes % 16.9 % (20.0-50.0) L 09/25/17 05:20 Monocytes % 10.4 % (2.0-10.0) H 09/25/17 05:20 Eosinophils % 2.0 % (0.0-5.0) 09/25/17 05:20 Basophils % 0.1 % (0.0-2.0) 09/25/17 05:20 Neutrophils (Manual) 80 % (40-80) 09/23/17 05:20 Lymphocytes 3 % (20-50) L 09/23/17 05:20 Monocytes 9 % (2-10) 09/23/17 05:20 Eosinophils 1 % (0-5) 09/23/17 05:20 Metamyelocytes 1 % (0-0) H 09/23/17 05:20 Atypical Lymphocytes 1 % 09/23/17 05:20 Hypochromia 1+ 09/23/17 05:20 Platelet Estimate ADEQUATE (NORMAL) 09/23/17 05:20 Macrocytosis 1+ 09/23/17 05:20 PT 11.3 SECONDS (9.5-11.5) 09/25/17 05:20 INR 1.09 (0.5-1.4) 09/25/17 05:20 PTT (Actin FS) 26.0 SECONDS (26.0-38.0) 09/25/17 05:20 Sodium 134 mEq/L (136-145) L 09/25/17 05:20 Potassium 4.1 mEq/L (3.5-5.1) 09/25/17 05:20 Chloride 102 mEq/L (98-107) 09/25/17 05:20 Carbon Dioxide 26.0 mEq/L (21.0-31.0) 09/25/17 05:20 Anion Gap 10.1 (7.0-16.0) 09/25/17 05:20 BUN 11 mg/dL (7-25) 09/25/17 05:20 Creatinine 0.7 mg/dL (0.7-1.3) 09/25/17 05:20 Est GFR ( Amer) > 60.0 ml/min (>90) 09/25/17 05:20 Est GFR (Non-Af Amer) > 60.0 ml/min 09/25/17 05:20 BUN/Creatinine Ratio 15.7 09/25/17 05:20 Glucose 109 mg/dL (70-105) H 09/25/17 05:20 POC Glucose 114 MG/DL (70 - 105) H 09/25/17 05:57 Whole Bld Lactic Acid 1.14 mmol/L (0.60-1.99) 09/20/17 17:04 Calcium 8.6 mg/dL (8.6-10.3) 09/25/17 05:20 Total Bilirubin 0.6 mg/dL (0.3-1.0) 09/24/17 05:14 AST 14 U/L (13-39) 09/24/17 05:14 ALT 39 U/L (7-52) 09/24/17 05:14 Alkaline Phosphatase 199 U/L (34-104) H 09/24/17 05:14 Creatine Kinase 32 U/L (30-223) 09/20/17 17:04 Troponin I < 0.01 ng/mL (0.01-0.05) L 09/20/17 17:04 B-Natriuretic Peptide 5.7 pg/mL (5.0-100.0) 09/20/17 17:04 Total Protein 6.6 gm/dL (6.0-8.3) 09/24/17 05:14 Albumin 3.3 gm/dL (4.2-5.5) L 09/24/17 05:14 Globulin 3.3 gm/dL 09/24/17 05:14 Albumin/Globulin Ratio 1.0 (1.0-1.8) 09/24/17 05:14 Triglycerides 93 mg/dL (<150) 09/20/17 17:04 Cholesterol 147 mg/dL (<200) 09/20/17 17:04 LDL Cholesterol Direct 77 mg/dL (75-193) 09/20/17 17:04 HDL Cholesterol 61 mg/dL (23-92) 09/20/17 17:04 Amylase 10 U/L (29-103) L 09/20/17 17:04 Lipase 10 U/L (11-82) L 09/23/17 05:20 Urine Source CLEAN C 09/20/17 17:00 Urine Color YELLOW 09/20/17 17:00 Urine Clarity HAZY (CLEAR) 09/20/17 17:00 Urine pH 6.5 (4.6 - 8.0) 09/20/17 17:00 Ur Specific [place] 1.025 (1.005-1.030) 09/20/17 17:00 Urine Protein 100 mg/dL (NEGATIVE) H 09/20/17 17:00 Urine Glucose (UA) NEGATIVE mg/dL (NEGATIVE) 09/20/17 17:00 Urine Ketones NEGATIVE mg/dL (NEGATIVE) 09/20/17 17:00 Urine Blood LARGE (NEGATIVE) H 09/20/17 17:00 Urine Nitrate NEGATIVE (NEGATIVE) 09/20/17 17:00 Urine Bilirubin SMALL (NEGATIVE) H 09/20/17 17:00 Urine Urobilinogen 2.0 E.U./dL (0.2 - 1.0) 09/20/17 17:00 Ur Leukocyte Esterase NEGATIVE (NEGATIVE) 09/20/17 17:00 Urine RBC 25-50 /hpf (0-5) H 09/20/17 17:00 Urine WBC 2-5 /hpf (0-5) H 09/20/17 17:00 Ur Epithelial Cells OCCASIONAL /lpf (FEW) 09/20/17 17:00 Urine Bacteria FEW /hpf (NONE SEEN) 09/20/17 17:00 Urine Opiates Screen POSITIVE (NEGATIVE) H 09/21/17 15:30 Urine Methadone Screen NEGATIVE (NEGATIVE) 09/21/17 15:30 Ur Barbiturates Screen NEGATIVE (NEGATIVE) 09/21/17 15:30 Ur Tricyclics Screen NEGATIVE (NEGATIVE) 09/21/17 15:30 Ur Phencyclidine Scrn NEGATIVE (NEGATIVE) 09/21/17 15:30 Amphetamines Screen NEGATIVE (NEGATIVE) 09/21/17 15:30 U Methamphetamines Scrn NEGATIVE (NEGATIVE) 09/21/17 15:30 U Benzodiazepines Scrn NEGATIVE (NEGATIVE) 09/21/17 15:30 U Cocaine Metab Screen NEGATIVE (NEGATIVE) 09/21/17 15:30 U Cannabinoids Screen NEGATIVE (NEGATIVE) 09/21/17 15:30 Blood Type B POSITIVE 09/25/17 11:20 Antibody Screen NEGATIVE 09/25/17 11:20 - Physical Exam Vitals and I&O: Vital Signs Temp 98.2 F 09/25/17 12:00 Pulse 64 09/25/17 12:00 Resp 18 09/25/17 12:00 BP 130/64 09/25/17 12:00 Pulse Ox 97 09/25/17 12:00 Intake & Output 09/24/17 09/25/17 09/25/17 18:59 06:59 18:59 Intake Total 8129.321 5160 Output Total 1200 Balance 8548.720 6225 Weight (lbs) 85.729 kg Intake: Intake, IV Amount 4778.242 2370 D5-0.45NS w/20 mEq KCL 1, 832.873 0217 000 ml @ 125 mls/hr IV . Q8H [facility] Rx#:[id number] metroNIDAZOLE 500mg/NS 100 200 100mL 500 mg In 100 ml @ 100 mls/hr IV Q8HR [facility] Rx #:[id number] Oral 300 Output: Urine 1200 Other: # Bowel Movements 0 Stool Characteristics Soft Soft Soft Brown Formed Formed Brown Brown Active Medications: Current Medications Acetaminophen (Tylenol) 650 mg PO Q4H PRN PRN Reason: FEVER >100 Stop: 11/19/17 22:14 Last Admin: 09/25/17 01:46 Dose: 650 mg Hydromorphone HCl (Dilaudid) 1 mg IVP Q4H PRN PRN Reason: Pain (Severe) Stop: 11/19/17 22:14 Last Admin: 09/25/17 14:16 Dose: 1 mg Potassium Chloride/Dextrose/Sod Cl (D5-0.45ns W/20 Meq Kcl) 1,000 mls @ 125 mls /hr IV .Q8H [facility] Stop: 11/19/17 21:59 Last Admin: 09/25/17 11:50 Dose: 125 mls/hr Metronidazole (Flagyl) 500 mg in 100 mls @ 100 mls/hr IV Q8HR [facility] Stop: 11/19/17 22:59 Last Admin: 09/25/17 12:42 Dose: 100 mls/hr Levofloxacin (Levaquin Pb) 750 mg in 150 mls @ 100 mls/hr IV Q24HR [facility] Stop: 11/22/17 20:59 Last Admin: 09/24/17 21:40 Dose: 100 mls/hr Ondansetron HCl (Zofran) 4 mg IV Q4H PRN PRN Reason: Nausea / Vomiting Stop: 11/19/17 22:14 Pantoprazole Sodium (Protonix) 40 mg IVP DAILY [facility] Stop: 11/20/17 08:59 Last Admin: 09/25/17 08:22 Dose: 40 mg General: Alert, Oriented x3, Cooperative, No acute distress HEENT: Atraumatic, PERRLA Neck: Supple, JVD Cardiovascular: Regular rate, Normal S1, Normal S2 Lungs: Clear to auscultation Abdomen: Bowel sounds, Soft Psych/Mental Status: Mental status NL, Mood NL
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
[2017-09-25] MEDS: Levofloxacin 750mg/150mL 750 MG/150 ML BAG IV SCH (21:32)
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
--- NOTE | 2017-09-25 23:50 | Internal Medicine Prog Note ---
Internal Medicine Subjective - Subjective Service Date: 09/25/17 Patient seen and examined:: with staff Patient is:: awake, in bed, talking Per staff patient has:: no adverse event Internal Medicine Objective - Results Result Diagrams: 09/25/17 05:20 09/25/17 05:20 Recent Labs: Laboratory Last Values WBC 10.2 Th/cmm (4.8-10.8) D 09/25/17 05:20 RBC 4.61 Mil/cmm (4.30-5.70) 09/25/17 05:20 Hgb 14.2 gm/dL (12-16) 09/25/17 05:20 Hct 43.1 % (41.0-60) 09/25/17 05:20 MCV 93.5 fl (80-99) 09/25/17 05:20 MCH 30.8 pg (26.0-30.0) H 09/25/17 05:20 MCHC Differential 32.9 pg (28.0-36.0) 09/25/17 05:20 RDW 13.3 % (11.5-20.0) 09/25/17 05:20 Plt Count 450 Th/cmm (150-400) H 09/25/17 05:20 MPV 6.6 fl 09/25/17 05:20 Neutrophils % 70.6 % (40.0-80.0) 09/25/17 05:20 Band Neutrophils % 5 % (0-10) 09/23/17 05:20 Lymphocytes % 16.9 % (20.0-50.0) L 09/25/17 05:20 Monocytes % 10.4 % (2.0-10.0) H 09/25/17 05:20 Eosinophils % 2.0 % (0.0-5.0) 09/25/17 05:20 Basophils % 0.1 % (0.0-2.0) 09/25/17 05:20 Neutrophils (Manual) 80 % (40-80) 09/23/17 05:20 Lymphocytes 3 % (20-50) L 09/23/17 05:20 Monocytes 9 % (2-10) 09/23/17 05:20 Eosinophils 1 % (0-5) 09/23/17 05:20 Metamyelocytes 1 % (0-0) H 09/23/17 05:20 Atypical Lymphocytes 1 % 09/23/17 05:20 Hypochromia 1+ 09/23/17 05:20 Platelet Estimate ADEQUATE (NORMAL) 09/23/17 05:20 Macrocytosis 1+ 09/23/17 05:20 PT 11.3 SECONDS (9.5-11.5) 09/25/17 05:20 INR 1.09 (0.5-1.4) 09/25/17 05:20 PTT (Actin FS) 26.0 SECONDS (26.0-38.0) 09/25/17 05:20 Sodium 134 mEq/L (136-145) L 09/25/17 05:20 Potassium 4.1 mEq/L (3.5-5.1) 09/25/17 05:20 Chloride 102 mEq/L (98-107) 09/25/17 05:20 Carbon Dioxide 26.0 mEq/L (21.0-31.0) 09/25/17 05:20 Anion Gap 10.1 (7.0-16.0) 09/25/17 05:20 BUN 11 mg/dL (7-25) 09/25/17 05:20 Creatinine 0.7 mg/dL (0.7-1.3) 09/25/17 05:20 Est GFR ( Amer) > 60.0 ml/min (>90) 09/25/17 05:20 Est GFR (Non-Af Amer) > 60.0 ml/min 09/25/17 05:20 BUN/Creatinine Ratio 15.7 09/25/17 05:20 Glucose 109 mg/dL (70-105) H 09/25/17 05:20 POC Glucose 114 MG/DL (70 - 105) H 09/25/17 05:57 Whole Bld Lactic Acid 1.14 mmol/L (0.60-1.99) 09/20/17 17:04 Calcium 8.6 mg/dL (8.6-10.3) 09/25/17 05:20 Total Bilirubin 0.6 mg/dL (0.3-1.0) 09/24/17 05:14 AST 14 U/L (13-39) 09/24/17 05:14 ALT 39 U/L (7-52) 09/24/17 05:14 Alkaline Phosphatase 199 U/L (34-104) H 09/24/17 05:14 Creatine Kinase 32 U/L (30-223) 09/20/17 17:04 Troponin I < 0.01 ng/mL (0.01-0.05) L 09/20/17 17:04 B-Natriuretic Peptide 5.7 pg/mL (5.0-100.0) 09/20/17 17:04 Total Protein 6.6 gm/dL (6.0-8.3) 09/24/17 05:14 Albumin 3.3 gm/dL (4.2-5.5) L 09/24/17 05:14 Globulin 3.3 gm/dL 09/24/17 05:14 Albumin/Globulin Ratio 1.0 (1.0-1.8) 09/24/17 05:14 Triglycerides 93 mg/dL (<150) 09/20/17 17:04 Cholesterol 147 mg/dL (<200) 09/20/17 17:04 LDL Cholesterol Direct 77 mg/dL (75-193) 09/20/17 17:04 HDL Cholesterol 61 mg/dL (23-92) 09/20/17 17:04 Amylase 10 U/L (29-103) L 09/20/17 17:04 Lipase 10 U/L (11-82) L 09/23/17 05:20 Urine Source CLEAN C 09/20/17 17:00 Urine Color YELLOW 09/20/17 17:00 Urine Clarity HAZY (CLEAR) 09/20/17 17:00 Urine pH 6.5 (4.6 - 8.0) 09/20/17 17:00 Ur Specific [place] 1.025 (1.005-1.030) 09/20/17 17:00 Urine Protein 100 mg/dL (NEGATIVE) H 09/20/17 17:00 Urine Glucose (UA) NEGATIVE mg/dL (NEGATIVE) 09/20/17 17:00 Urine Ketones NEGATIVE mg/dL (NEGATIVE) 09/20/17 17:00 Urine Blood LARGE (NEGATIVE) H 09/20/17 17:00 Urine Nitrate NEGATIVE (NEGATIVE) 09/20/17 17:00 Urine Bilirubin SMALL (NEGATIVE) H 09/20/17 17:00 Urine Urobilinogen 2.0 E.U./dL (0.2 - 1.0) 09/20/17 17:00 Ur Leukocyte Esterase NEGATIVE (NEGATIVE) 09/20/17 17:00 Urine RBC 25-50 /hpf (0-5) H 09/20/17 17:00 Urine WBC 2-5 /hpf (0-5) H 09/20/17 17:00 Ur Epithelial Cells OCCASIONAL /lpf (FEW) 09/20/17 17:00 Urine Bacteria FEW /hpf (NONE SEEN) 09/20/17 17:00 Urine Opiates Screen POSITIVE (NEGATIVE) H 09/21/17 15:30 Urine Methadone Screen NEGATIVE (NEGATIVE) 09/21/17 15:30 Ur Barbiturates Screen NEGATIVE (NEGATIVE) 09/21/17 15:30 Ur Tricyclics Screen NEGATIVE (NEGATIVE) 09/21/17 15:30 Ur Phencyclidine Scrn NEGATIVE (NEGATIVE) 09/21/17 15:30 Amphetamines Screen NEGATIVE (NEGATIVE) 09/21/17 15:30 U Methamphetamines Scrn NEGATIVE (NEGATIVE) 09/21/17 15:30 U Benzodiazepines Scrn NEGATIVE (NEGATIVE) 09/21/17 15:30 U Cocaine Metab Screen NEGATIVE (NEGATIVE) 09/21/17 15:30 U Cannabinoids Screen NEGATIVE (NEGATIVE) 09/21/17 15:30 Blood Type B POSITIVE 09/25/17 11:20 Antibody Screen NEGATIVE 09/25/17 11:20 - Physical Exam Vitals and I&O: Vital Signs Temp 97.5 F 09/25/17 20:00 Pulse 62 09/25/17 20:00 Resp 17 09/25/17 20:00 BP 115/76 09/25/17 20:00 Pulse Ox 95 09/25/17 20:00 Intake & Output 09/25/17 09/25/17 09/26/17 06:59 18:59 06:59 Intake Total 2650 110 Output Total 1200 Balance 1450 110 Weight (lbs) 85.729 kg 85.729 kg Intake: Intake, IV Amount 2350 100 D5-0.45NS w/20 mEq KCL 1, 2000 000 ml @ 125 mls/hr IV . Q8H RASHAWN Rx#:[id number] Levofloxacin 750mg/150mL 150 750 mg In 150 ml @ 100 mls/hr IV Q24HR RASHAWN Rx#: [id number] metroNIDAZOLE 500mg/NS 200 100 100mL 500 mg In 100 ml @ 100 mls/hr IV Q8HR [facility] Rx #:[id number] Oral 300 10 Output: Urine 1200 Other: # Voids 3 # Bowel Movements 0 0 Stool Characteristics Soft Soft Soft Formed Formed Formed Brown Brown Brown Active Medications: Current Medications Acetaminophen (Tylenol) 650 mg PO Q4H PRN PRN Reason: FEVER >100 Stop: 11/19/17 22:14 Last Admin: 09/25/17 01:46 Dose: 650 mg Hydromorphone HCl (Dilaudid) 1 mg IVP Q4H PRN PRN Reason: Pain (Severe) Stop: 11/19/17 22:14 Last Admin: 09/25/17 21:57 Dose: 1 mg Potassium Chloride/Dextrose/Sod Cl (D5-0.45ns W/20 Meq Kcl) 1,000 mls @ 125 mls /hr IV .Q8H [facility] Stop: 11/19/17 21:59 Last Admin: 09/25/17 11:50 Dose: 125 mls/hr Metronidazole (Flagyl) 500 mg in 100 mls @ 100 mls/hr IV Q8HR [facility] Stop: 11/19/17 22:59 Last Admin: 09/25/17 20:19 Dose: 100 mls/hr Levofloxacin (Levaquin Pb) 750 mg in 150 mls @ 100 mls/hr IV Q24HR [facility] Stop: 11/22/17 20:59 Last Admin: 09/25/17 21:32 Dose: 100 mls/hr Ondansetron HCl (Zofran) 4 mg IV Q4H PRN PRN Reason: Nausea / Vomiting Stop: 11/19/17 22:14 Pantoprazole Sodium (Protonix) 40 mg IVP DAILY [facility] Stop: 11/20/17 08:59 Last Admin: 09/25/17 08:22 Dose: 40 mg General: alert HEENT: NC/AT, PERRLA, EOMI, anicteric sclerae, throat clear Neck: Supple, No JVD, No thyromegaly, +2 carotid pulse wo bruit Lungs: CTAB Cardiovascular: RRR, Normal S1, Normal S2, without murmur Abdomen: soft, non-distended, positive bowel sound Extremities: clear Neurological: no change Internal Medicine Assmt/Plan - Assessment Assessment: 1.ACUTE CHOLECYSTITIS. 2.CHOLELITHIASIS 3.status post laproscopic cholecystectomy. - Plan Plan: CONTINUE ON CURRENT MEDICATION. Nutritional Asmnt/Malnutr-PDOC - Dietary Evaluation Malnutrition Findings (Please click <Entered> for more info): Nutritional Asmnt/Malnutrition Start: 09/25/17 16: 50 Text: Status: Complete Freq: Document 09/25/17 16:51 CARYG (Rec: 09/25/17 17:03 CARYG [email or web address]) Nutritional Asmnt/Malnutrition Patient General Information Nutritional Screening Moderate Risk Diagnosis acute cholecystitis Pertinent Medical Hx/Surgical Hx none Subjective Information Pt seen sleeping in bed at time of visit. Pt was NPO for pissible surgery today. Current Diet Order/ Nutrition Support NPO Pertinent Medications levaquin, flagyl, protonix, D5 -0.45ns w 20 meq kcl Pertinent Labs 2/ Na 134, K 4.1, Cl 102, BUN 11, Cr 0.7, Glucose 109, POC 114 Nutritional Hx/Data Height 1.65 m Height (Calculated Centimeters) 165.1 Current Weight (lbs) 85.729 kg Weight (Calculated Kilograms) 85.7 Weight (Calculated Grams) 43012.0 [place] Body Weight 136 % [place] Body Weight 139 Body Mass Index (BMI) 31.4 Weight Status Obese GI Symptoms GI Symptoms None Last BM 2/2 Difficult in: None Skin Integrity/Comment: intact Estimated Nutritional Goals BEE in Kcals: Adj wt of IBW Calories/Kcals/Kg 25-30 Kcals Calculated 2170-9147 Protein: Adj wt of IBW Protein g/k Protein Calculated 68 Fluid: ml 1700-2040ml (1ml/kcal) Nutritional Problem 1. Problem Problem inadequate food intake Etiology acute cholecystitis Signs/Symptoms: pt on clear liquid and NPO since adm Malnutrition Alert Protein-Calorie Malnutrition N/A Is there a minimum of two criteria No selected? Query Text:Check all the applicable criteria. A minimum of two criteria are recommended for diagnosis of either severe or non-severe malnutrition. Intervention/Recommendation Comments 1. Monitor NPO status. Recommend Boost Breeze TID when diet advances to clear liquid diet 2. Monitor PO intake, wt, labs and skin integrity 3. F/U as high risk in 2-3 days, 09/27-09/28 Expected Outcomes/Goals Expected Outcomes/Goals 1. PO intake to meet at least 75% of nutritional needs. 2. Wt stability, skin to remain intact, labs to approach WNL.
[2017-09-26] MEDS: HYDROmorphone 1 mg/mL 1mL Syr IVP PRN ×5 (01:58→18:27)
[2017-09-26] MEDS: metroNIDAZOLE 500mg/NS 100mL 500 MG/100 ML BAG IV SCH ×3 (04:12→20:36)
[2017-09-26 06:09] LABS: % EOSINOPHILS 0.5 % (0.0-5.0); % LYMPHOCYTES 13.7 % (20.0-50.0); % MONOCYTES 9.6 % (2.0-10.0); % NEUTROPHILS 76.2 % (40.0-80.0); EOSINOPHILE ABSOLUTE 0.1 Th/cmm (0.1-0.4); HEMATOCRIT 42.4 % (41.0-60); HEMOGLOBIN 14.2 gm/dL (12-16); LYMPHOCYTE ABSOLUTE 1.7 Th/cmm (1.5-3.0); MEAN CELL VOLUME 91.1 fl (80-99); MEAN CORPUSCULAR HEMOGLOBIN 30.5 pg (26.0-30.0); MEAN CORPUSCULAR HGB CONC 33.4 pg (28.0-36.0); MEAN PLATELET VOLUME 6.4 fl; MONOCYTE ABSOLUTE 1.2 Th/cmm (0.3-1.0); NEUTROPHILE ABSOLUTE 9.4 Th/cmm (1.8-8.0); PLATELET COUNT 509 Th/cmm (150-400); RED BLOOD COUNT 4.66 Mil/cmm (4.30-5.70); RED CELL DISTRIBUTION WIDTH 13.5 % (11.5-20.0)
[2017-09-26 06:12] LABS: WHITE BLOOD COUNT 12.4 Th/cmm (4.8-10.8)
[2017-09-26 06:27] LABS: ALB/GLOB RATIO 1.1 (1.0-1.8); ALBUMIN 3.4 gm/dL (4.2-5.5); ALKALINE PHOSPHATASE 220 U/L (34-104); ANION GAP 9.1 (7.0-16.0); BILIRUBIN,TOTAL 0.5 mg/dL (0.3-1.0); BUN - UREA NITROGEN 10 mg/dL (7-25); CALCIUM SERUM 8.6 mg/dL (8.6-10.3); CARBON DIOXIDE 26.2 mEq/L (21.0-31.0); CHLORIDE 100 mEq/L (98-107); CREATININE - SERUM 0.7 mg/dL (0.7-1.3); GFR AFRICAN-AMERICAN > 60.0 ml/min (>90); GFR NON AFRICAN-AMERICAN > 60.0 ml/min; GLUCOSE 123 mg/dL (70-105); POTASSIUM SERUM 4.3 mEq/L (3.5-5.1); SGOT 44 U/L (13-39); SGPT/ALT 45 U/L (7-52); SODIUM SERUM 131 mEq/L (136-145); TOTAL PROTEIN,SERUM 6.6 gm/dL (6.0-8.3)
[2017-09-26] MEDS: D5-0.45NS w/20 mEq KCL 1,000 ML IV SCH ×2 (07:10→16:57)
--- NOTE | 2017-09-26 16:36 | General Progress Note ---
Subjective - Review of Systems Service Date: 09/26/17 Events since last encounter: labs improving tolerating diet Objective - Results Result Diagrams: 09/26/17 05:44 09/26/17 05:44 Recent Labs: Laboratory Last Values WBC 12.4 Th/cmm (4.8-10.8) H D 09/26/17 05:44 RBC 4.66 Mil/cmm (4.30-5.70) 09/26/17 05:44 Hgb 14.2 gm/dL (12-16) 09/26/17 05:44 Hct 42.4 % (41.0-60) 09/26/17 05:44 MCV 91.1 fl (80-99) 09/26/17 05:44 MCH 30.5 pg (26.0-30.0) H 09/26/17 05:44 MCHC Differential 33.4 pg (28.0-36.0) 09/26/17 05:44 RDW 13.5 % (11.5-20.0) 09/26/17 05:44 Plt Count 509 Th/cmm (150-400) H 09/26/17 05:44 MPV 6.4 fl 09/26/17 05:44 Neutrophils % 76.2 % (40.0-80.0) 09/26/17 05:44 Band Neutrophils % 5 % (0-10) 09/23/17 05:20 Lymphocytes % 13.7 % (20.0-50.0) L 09/26/17 05:44 Monocytes % 9.6 % (2.0-10.0) 09/26/17 05:44 Eosinophils % 0.5 % (0.0-5.0) 09/26/17 05:44 Basophils % 0.0 % (0.0-2.0) 09/26/17 05:44 Neutrophils (Manual) 80 % (40-80) 09/23/17 05:20 Lymphocytes 3 % (20-50) L 09/23/17 05:20 Monocytes 9 % (2-10) 09/23/17 05:20 Eosinophils 1 % (0-5) 09/23/17 05:20 Metamyelocytes 1 % (0-0) H 09/23/17 05:20 Atypical Lymphocytes 1 % 09/23/17 05:20 Hypochromia 1+ 09/23/17 05:20 Platelet Estimate ADEQUATE (NORMAL) 09/23/17 05:20 Macrocytosis 1+ 09/23/17 05:20 PT 11.3 SECONDS (9.5-11.5) 09/25/17 05:20 INR 1.09 (0.5-1.4) 09/25/17 05:20 PTT (Actin FS) 26.0 SECONDS (26.0-38.0) 09/25/17 05:20 Sodium 131 mEq/L (136-145) L 09/26/17 05:44 Potassium 4.3 mEq/L (3.5-5.1) 09/26/17 05:44 Chloride 100 mEq/L (98-107) 09/26/17 05:44 Carbon Dioxide 26.2 mEq/L (21.0-31.0) 09/26/17 05:44 Anion Gap 9.1 (7.0-16.0) 09/26/17 05:44 BUN 10 mg/dL (7-25) 09/26/17 05:44 Creatinine 0.7 mg/dL (0.7-1.3) 09/26/17 05:44 Est GFR ( Amer) > 60.0 ml/min (>90) 09/26/17 05:44 Est GFR (Non-Af Amer) > 60.0 ml/min 09/26/17 05:44 BUN/Creatinine Ratio 14.3 09/26/17 05:44 Glucose 123 mg/dL (70-105) H 09/26/17 05:44 POC Glucose 114 MG/DL (70 - 105) H 09/25/17 05:57 Whole Bld Lactic Acid 1.14 mmol/L (0.60-1.99) 09/20/17 17:04 Calcium 8.6 mg/dL (8.6-10.3) 09/26/17 05:44 Total Bilirubin 0.5 mg/dL (0.3-1.0) 09/26/17 05:44 AST 44 U/L (13-39) H 09/26/17 05:44 ALT 45 U/L (7-52) 09/26/17 05:44 Alkaline Phosphatase 220 U/L (34-104) H 09/26/17 05:44 Creatine Kinase 32 U/L (30-223) 09/20/17 17:04 Troponin I < 0.01 ng/mL (0.01-0.05) L 09/20/17 17:04 B-Natriuretic Peptide 5.7 pg/mL (5.0-100.0) 09/20/17 17:04 Total Protein 6.6 gm/dL (6.0-8.3) 09/26/17 05:44 Albumin 3.4 gm/dL (4.2-5.5) L 09/26/17 05:44 Globulin 3.2 gm/dL 09/26/17 05:44 Albumin/Globulin Ratio 1.1 (1.0-1.8) 09/26/17 05:44 Triglycerides 93 mg/dL (<150) 09/20/17 17:04 Cholesterol 147 mg/dL (<200) 09/20/17 17:04 LDL Cholesterol Direct 77 mg/dL (75-193) 09/20/17 17:04 HDL Cholesterol 61 mg/dL (23-92) 09/20/17 17:04 Amylase 10 U/L (29-103) L 09/20/17 17:04 Lipase 10 U/L (11-82) L 09/23/17 05:20 Urine Source CLEAN C 09/20/17 17:00 Urine Color YELLOW 09/20/17 17:00 Urine Clarity HAZY (CLEAR) 09/20/17 17:00 Urine pH 6.5 (4.6 - 8.0) 09/20/17 17:00 Ur Specific [place] 1.025 (1.005-1.030) 09/20/17 17:00 Urine Protein 100 mg/dL (NEGATIVE) H 09/20/17 17:00 Urine Glucose (UA) NEGATIVE mg/dL (NEGATIVE) 09/20/17 17:00 Urine Ketones NEGATIVE mg/dL (NEGATIVE) 09/20/17 17:00 Urine Blood LARGE (NEGATIVE) H 09/20/17 17:00 Urine Nitrate NEGATIVE (NEGATIVE) 09/20/17 17:00 Urine Bilirubin SMALL (NEGATIVE) H 09/20/17 17:00 Urine Urobilinogen 2.0 E.U./dL (0.2 - 1.0) 09/20/17 17:00 Ur Leukocyte Esterase NEGATIVE (NEGATIVE) 09/20/17 17:00 Urine RBC 25-50 /hpf (0-5) H 09/20/17 17:00 Urine WBC 2-5 /hpf (0-5) H 09/20/17 17:00 Ur Epithelial Cells OCCASIONAL /lpf (FEW) 09/20/17 17:00 Urine Bacteria FEW /hpf (NONE SEEN) 09/20/17 17:00 Urine Opiates Screen POSITIVE (NEGATIVE) H 09/21/17 15:30 Urine Methadone Screen NEGATIVE (NEGATIVE) 09/21/17 15:30 Ur Barbiturates Screen NEGATIVE (NEGATIVE) 09/21/17 15:30 Ur Tricyclics Screen NEGATIVE (NEGATIVE) 09/21/17 15:30 Ur Phencyclidine Scrn NEGATIVE (NEGATIVE) 09/21/17 15:30 Amphetamines Screen NEGATIVE (NEGATIVE) 09/21/17 15:30 U Methamphetamines Scrn NEGATIVE (NEGATIVE) 09/21/17 15:30 U Benzodiazepines Scrn NEGATIVE (NEGATIVE) 09/21/17 15:30 U Cocaine Metab Screen NEGATIVE (NEGATIVE) 09/21/17 15:30 U Cannabinoids Screen NEGATIVE (NEGATIVE) 09/21/17 15:30 Blood Type B POSITIVE 09/25/17 11:20 Antibody Screen NEGATIVE 09/25/17 11:20 - Physical Exam Vitals and I&O: Vital Signs Temp 97.4 F 09/26/17 12:08 Pulse 65 09/26/17 12:08 Resp 18 09/26/17 12:08 BP 121/72 09/26/17 12:08 Pulse Ox 96 09/26/17 12:08 Intake & Output 09/25/17 09/26/17 09/26/17 18:59 06:59 18:59 Intake Total 110 1200 100 Output Total 60 Balance 110 1140 100 Weight (lbs) 85.729 kg 86.954 kg Intake: Intake, IV Amount 100 1200 100 D5-0.45NS w/20 mEq KCL 1, 1000 000 ml @ 125 mls/hr IV . Q8H [facility]HA[facility] Rx#:[id number] metroNIDAZOLE 500mg/NS 100 200 100 100mL 500 mg In 100 ml @ 100 mls/hr IV Q8HR [facility] Rx #:[id number] Oral 10 Output: Drainage 60 Right Abdomen 60 Other: # Voids 3 2 # Bowel Movements 0 Stool Characteristics Soft Soft Formed Formed Brown Brown Active Medications: Current Medications Acetaminophen (Tylenol) 650 mg PO Q4H PRN PRN Reason: FEVER >100 Stop: 11/19/17 22:14 Last Admin: 09/25/17 01:46 Dose: 650 mg Hydromorphone HCl (Dilaudid) 1 mg IVP Q4H PRN PRN Reason: Pain (Severe) Stop: 11/19/17 22:14 Last Admin: 09/26/17 14:03 Dose: 1 mg Potassium Chloride/Dextrose/Sod Cl (D5-0.45ns W/20 Meq Kcl) 1,000 mls @ 125 mls /hr IV .Q8H [facility] Stop: 11/19/17 21:59 Last Admin: 09/26/17 07:10 Dose: 125 mls/hr Metronidazole (Flagyl) 500 mg in 100 mls @ 100 mls/hr IV Q8HR [facility] Stop: 11/19/17 22:59 Last Infusion: 09/26/17 13:55 Dose: Infused Levofloxacin (Levaquin Pb) 750 mg in 150 mls @ 100 mls/hr IV Q24HR [facility] Stop: 11/22/17 20:59 Last Admin: 09/25/17 21:32 Dose: 100 mls/hr Ondansetron HCl (Zofran) 4 mg IV Q4H PRN PRN Reason: Nausea / Vomiting Stop: 11/19/17 22:14 Pantoprazole Sodium (Protonix) 40 mg IVP DAILY [facility] Stop: 11/20/17 08:59 Last Admin: 09/26/17 08:33 Dose: 40 mg General: Alert, Oriented x3, Cooperative, No acute distress HEENT: Atraumatic, PERRLA Neck: Supple, JVD Cardiovascular: Regular rate, Normal S1, Normal S2 Lungs: Clear to auscultation Abdomen: Bowel sounds, Soft Psych/Mental Status: Mental status NL, Mood NL - Procedures Procedures: Procedures Procedure Code Date LAPAROSCOPIC CHOLECYSTECTOMY 84885 09/20/17 RESECTION OF GALLBLADDER, PERCUTANEOUS ENDOSCOPIC APPROACH [id number] 09/20/17 Nutritional Asmnt/Malnutr-PDOC - Dietary Evaluation Malnutrition Findings (Please click <Entered> for more info): Nutritional Asmnt/Malnutrition Start: 09/25/17 16: 50 Text: Status: Complete Freq: Document 09/25/17 16:51 LCHENG (Rec: 09/25/17 17:03 LCHENG [id number]) Nutritional Asmnt/Malnutrition Patient General Information Nutritional Screening Moderate Risk Diagnosis acute cholecystitis Pertinent Medical Hx/Surgical Hx none Subjective Information Pt seen sleeping in bed at time of visit. Pt was NPO for pissible surgery today. Current Diet Order/ Nutrition Support NPO Pertinent Medications levaquin, flagyl, protonix, D5 -0.45ns w 20 meq kcl Pertinent Labs 2/ Na 134, K 4.1, Cl 102, BUN 11, Cr 0.7, Glucose 109, POC 114 Nutritional Hx/Data Height 1.65 m Height (Calculated Centimeters) 165.1 Current Weight (lbs) 85.729 kg Weight (Calculated Kilograms) 85.7 Weight (Calculated Grams) 49703.0 [place] Body Weight 136 % [place] Body Weight 139 Body Mass Index (BMI) 31.4 Weight Status Obese GI Symptoms GI Symptoms None Last BM 2/2 Difficult in: None Skin Integrity/Comment: intact Estimated Nutritional Goals BEE in Kcals: Adj wt of IBW Calories/Kcals/Kg 25-30 Kcals Calculated 1058-3439 Protein: Adj wt of IBW Protein g/k Protein Calculated 68 Fluid: ml 1700-2040ml (1ml/kcal) Nutritional Problem 1. Problem Problem inadequate food intake Etiology acute cholecystitis Signs/Symptoms: pt on clear liquid and NPO since adm Malnutrition Alert Protein-Calorie Malnutrition N/A Is there a minimum of two criteria No selected? Query Text:Check all the applicable criteria. A minimum of two criteria are recommended for diagnosis of either severe or non-severe malnutrition. Intervention/Recommendation Comments 1. Monitor NPO status. Recommend Boost Breeze TID when diet advances to clear liquid diet 2. Monitor PO intake, wt, labs and skin integrity 3. F/U as high risk in 2-3 days, 09/27-09/28 Expected Outcomes/Goals Expected Outcomes/Goals 1. PO intake to meet at least 75% of nutritional needs. 2. Wt stability, skin to remain intact, labs to approach WNL.
--- NOTE | 2017-09-26 19:56 | Internal Medicine Prog Note ---
Internal Medicine Subjective - Subjective Service Date: 09/26/17 Patient seen and examined:: with staff Patient is:: awake, in bed, talking Per staff patient has:: no adverse event Internal Medicine Objective - Results Result Diagrams: 09/26/17 05:44 09/26/17 05:44 Recent Labs: Laboratory Last Values WBC 12.4 Th/cmm (4.8-10.8) H D 09/26/17 05:44 RBC 4.66 Mil/cmm (4.30-5.70) 09/26/17 05:44 Hgb 14.2 gm/dL (12-16) 09/26/17 05:44 Hct 42.4 % (41.0-60) 09/26/17 05:44 MCV 91.1 fl (80-99) 09/26/17 05:44 MCH 30.5 pg (26.0-30.0) H 09/26/17 05:44 MCHC Differential 33.4 pg (28.0-36.0) 09/26/17 05:44 RDW 13.5 % (11.5-20.0) 09/26/17 05:44 Plt Count 509 Th/cmm (150-400) H 09/26/17 05:44 MPV 6.4 fl 09/26/17 05:44 Neutrophils % 76.2 % (40.0-80.0) 09/26/17 05:44 Band Neutrophils % 5 % (0-10) 09/23/17 05:20 Lymphocytes % 13.7 % (20.0-50.0) L 09/26/17 05:44 Monocytes % 9.6 % (2.0-10.0) 09/26/17 05:44 Eosinophils % 0.5 % (0.0-5.0) 09/26/17 05:44 Basophils % 0.0 % (0.0-2.0) 09/26/17 05:44 Neutrophils (Manual) 80 % (40-80) 09/23/17 05:20 Lymphocytes 3 % (20-50) L 09/23/17 05:20 Monocytes 9 % (2-10) 09/23/17 05:20 Eosinophils 1 % (0-5) 09/23/17 05:20 Metamyelocytes 1 % (0-0) H 09/23/17 05:20 Atypical Lymphocytes 1 % 09/23/17 05:20 Hypochromia 1+ 09/23/17 05:20 Platelet Estimate ADEQUATE (NORMAL) 09/23/17 05:20 Macrocytosis 1+ 09/23/17 05:20 PT 11.3 SECONDS (9.5-11.5) 09/25/17 05:20 INR 1.09 (0.5-1.4) 09/25/17 05:20 PTT (Actin FS) 26.0 SECONDS (26.0-38.0) 09/25/17 05:20 Sodium 131 mEq/L (136-145) L 09/26/17 05:44 Potassium 4.3 mEq/L (3.5-5.1) 09/26/17 05:44 Chloride 100 mEq/L (98-107) 09/26/17 05:44 Carbon Dioxide 26.2 mEq/L (21.0-31.0) 09/26/17 05:44 Anion Gap 9.1 (7.0-16.0) 09/26/17 05:44 BUN 10 mg/dL (7-25) 09/26/17 05:44 Creatinine 0.7 mg/dL (0.7-1.3) 09/26/17 05:44 Est GFR ( Amer) > 60.0 ml/min (>90) 09/26/17 05:44 Est GFR (Non-Af Amer) > 60.0 ml/min 09/26/17 05:44 BUN/Creatinine Ratio 14.3 09/26/17 05:44 Glucose 123 mg/dL (70-105) H 09/26/17 05:44 POC Glucose 114 MG/DL (70 - 105) H 09/25/17 05:57 Whole Bld Lactic Acid 1.14 mmol/L (0.60-1.99) 09/20/17 17:04 Calcium 8.6 mg/dL (8.6-10.3) 09/26/17 05:44 Total Bilirubin 0.5 mg/dL (0.3-1.0) 09/26/17 05:44 AST 44 U/L (13-39) H 09/26/17 05:44 ALT 45 U/L (7-52) 09/26/17 05:44 Alkaline Phosphatase 220 U/L (34-104) H 09/26/17 05:44 Creatine Kinase 32 U/L (30-223) 09/20/17 17:04 Troponin I < 0.01 ng/mL (0.01-0.05) L 09/20/17 17:04 B-Natriuretic Peptide 5.7 pg/mL (5.0-100.0) 09/20/17 17:04 Total Protein 6.6 gm/dL (6.0-8.3) 09/26/17 05:44 Albumin 3.4 gm/dL (4.2-5.5) L 09/26/17 05:44 Globulin 3.2 gm/dL 09/26/17 05:44 Albumin/Globulin Ratio 1.1 (1.0-1.8) 09/26/17 05:44 Triglycerides 93 mg/dL (<150) 09/20/17 17:04 Cholesterol 147 mg/dL (<200) 09/20/17 17:04 LDL Cholesterol Direct 77 mg/dL (75-193) 09/20/17 17:04 HDL Cholesterol 61 mg/dL (23-92) 09/20/17 17:04 Amylase 10 U/L (29-103) L 09/20/17 17:04 Lipase 10 U/L (11-82) L 09/23/17 05:20 Urine Source CLEAN C 09/20/17 17:00 Urine Color YELLOW 09/20/17 17:00 Urine Clarity HAZY (CLEAR) 09/20/17 17:00 Urine pH 6.5 (4.6 - 8.0) 09/20/17 17:00 Ur Specific [place] 1.025 (1.005-1.030) 09/20/17 17:00 Urine Protein 100 mg/dL (NEGATIVE) H 09/20/17 17:00 Urine Glucose (UA) NEGATIVE mg/dL (NEGATIVE) 09/20/17 17:00 Urine Ketones NEGATIVE mg/dL (NEGATIVE) 09/20/17 17:00 Urine Blood LARGE (NEGATIVE) H 09/20/17 17:00 Urine Nitrate NEGATIVE (NEGATIVE) 09/20/17 17:00 Urine Bilirubin SMALL (NEGATIVE) H 09/20/17 17:00 Urine Urobilinogen 2.0 E.U./dL (0.2 - 1.0) 09/20/17 17:00 Ur Leukocyte Esterase NEGATIVE (NEGATIVE) 09/20/17 17:00 Urine RBC 25-50 /hpf (0-5) H 09/20/17 17:00 Urine WBC 2-5 /hpf (0-5) H 09/20/17 17:00 Ur Epithelial Cells OCCASIONAL /lpf (FEW) 09/20/17 17:00 Urine Bacteria FEW /hpf (NONE SEEN) 09/20/17 17:00 Urine Opiates Screen POSITIVE (NEGATIVE) H 09/21/17 15:30 Urine Methadone Screen NEGATIVE (NEGATIVE) 09/21/17 15:30 Ur Barbiturates Screen NEGATIVE (NEGATIVE) 09/21/17 15:30 Ur Tricyclics Screen NEGATIVE (NEGATIVE) 09/21/17 15:30 Ur Phencyclidine Scrn NEGATIVE (NEGATIVE) 09/21/17 15:30 Amphetamines Screen NEGATIVE (NEGATIVE) 09/21/17 15:30 U Methamphetamines Scrn NEGATIVE (NEGATIVE) 09/21/17 15:30 U Benzodiazepines Scrn NEGATIVE (NEGATIVE) 09/21/17 15:30 U Cocaine Metab Screen NEGATIVE (NEGATIVE) 09/21/17 15:30 U Cannabinoids Screen NEGATIVE (NEGATIVE) 09/21/17 15:30 Blood Type B POSITIVE 09/25/17 11:20 Antibody Screen NEGATIVE 09/25/17 11:20 - Physical Exam Vitals and I&O: Vital Signs Temp 97.7 F 09/26/17 16:00 Pulse 63 09/26/17 16:00 Resp 18 09/26/17 16:00 BP 114/72 09/26/17 16:00 Pulse Ox 98 09/26/17 16:00 Intake & Output 09/26/17 09/26/17 09/27/17 06:59 18:59 06:59 Intake Total 1200 1600 Output Total 60 40 Balance 1140 1560 Weight (lbs) 86.954 kg 86.954 kg Intake: Intake, IV Amount 1200 1100 D5-0.45NS w/20 mEq KCL 1, 1000 1000 000 ml @ 125 mls/hr IV . Q8H RASHAWN Rx#:[id number] metroNIDAZOLE 500mg/NS 200 100 100mL 500 mg In 100 ml @ 100 mls/hr IV Q8HR [facility] Rx #:[id number] Oral 500 Output: Drainage 60 40 Right Abdomen 60 40 Other: # Voids 2 4 # Bowel Movements 0 Stool Characteristics Soft Formed [place] Active Medications: Current Medications Acetaminophen (Tylenol) 650 mg PO Q4H PRN PRN Reason: FEVER >100 Stop: 11/19/17 22:14 Last Admin: 09/25/17 01:46 Dose: 650 mg Hydromorphone HCl (Dilaudid) 1 mg IVP Q4H PRN PRN Reason: Pain (Severe) Stop: 11/19/17 22:14 Last Admin: 09/26/17 18:27 Dose: 1 mg Potassium Chloride/Dextrose/Sod Cl (D5-0.45ns W/20 Meq Kcl) 1,000 mls @ 125 mls /hr IV .Q8H [facility] Stop: 11/19/17 21:59 Last Admin: 09/26/17 16:57 Dose: 125 mls/hr Metronidazole (Flagyl) 500 mg in 100 mls @ 100 mls/hr IV Q8HR [facility] Stop: 11/19/17 22:59 Last Infusion: 09/26/17 13:55 Dose: Infused Levofloxacin (Levaquin Pb) 750 mg in 150 mls @ 100 mls/hr IV Q24HR [facility] Stop: 11/22/17 20:59 Last Admin: 09/25/17 21:32 Dose: 100 mls/hr Ondansetron HCl (Zofran) 4 mg IV Q4H PRN PRN Reason: Nausea / Vomiting Stop: 11/19/17 22:14 Pantoprazole Sodium (Protonix) 40 mg IVP DAILY [facility] Stop: 11/20/17 08:59 Last Admin: 09/26/17 08:33 Dose: 40 mg General: alert HEENT: NC/AT, PERRLA, EOMI, anicteric sclerae, throat clear Neck: Supple, No JVD, No thyromegaly, +2 carotid pulse wo bruit Lungs: CTAB Cardiovascular: RRR, Normal S1, Normal S2, without murmur Abdomen: soft, non-distended, positive bowel sound Extremities: clear Neurological: no change - Procedures Procedures: Procedures Procedure Code Date LAPAROSCOPIC CHOLECYSTECTOMY 52625 09/20/17 RESECTION OF GALLBLADDER, PERCUTANEOUS ENDOSCOPIC APPROACH [id number] 09/20/17 Internal Medicine Assmt/Plan - Assessment Assessment: 1.ACUTE CHOLECYSTITIS. 2.CHOLELITHIASIS 3.status post laproscopic cholecystectomy. - Plan Plan: CONTINUE ON CURRENT MEDICATION. Nutritional Asmnt/Malnutr-PDOC - Dietary Evaluation Malnutrition Findings (Please click <Entered> for more info): Nutritional Asmnt/Malnutrition Start: 09/25/17 16: 50 Text: Status: Complete Freq: Document 09/25/17 16:51 CARYG (Rec: 09/25/17 17:03 [email or web address]) Nutritional Asmnt/Malnutrition Patient General Information Nutritional Screening Moderate Risk Diagnosis acute cholecystitis Pertinent Medical Hx/Surgical Hx none Subjective Information Pt seen sleeping in bed at time of visit. Pt was NPO for pissible surgery today. Current Diet Order/ Nutrition Support NPO Pertinent Medications levaquin, flagyl, protonix, D5 -0.45ns w 20 meq kcl Pertinent Labs 2/ Na 134, K 4.1, Cl 102, BUN 11, Cr 0.7, Glucose 109, POC 114 Nutritional Hx/Data Height 1.65 m Height (Calculated Centimeters) 165.1 Current Weight (lbs) 85.729 kg Weight (Calculated Kilograms) 85.7 Weight (Calculated Grams) 67981.0 [place] Body Weight 136 % [place] Body Weight 139 Body Mass Index (BMI) 31.4 Weight Status Obese GI Symptoms GI Symptoms None Last BM 2/2 Difficult in: None Skin Integrity/Comment: intact Estimated Nutritional Goals BEE in Kcals: Adj wt of IBW Calories/Kcals/Kg 25-30 Kcals Calculated 2351-3060 Protein: Adj wt of IBW Protein g/k Protein Calculated 68 Fluid: ml 1700-2040ml (1ml/kcal) Nutritional Problem 1. Problem Problem inadequate food intake Etiology acute cholecystitis Signs/Symptoms: pt on clear liquid and NPO since adm Malnutrition Alert Protein-Calorie Malnutrition N/A Is there a minimum of two criteria No selected? Query Text:Check all the applicable criteria. A minimum of two criteria are recommended for diagnosis of either severe or non-severe malnutrition. Intervention/Recommendation Comments 1. Monitor NPO status. Recommend Boost Breeze TID when diet advances to clear liquid diet 2. Monitor PO intake, wt, labs and skin integrity 3. F/U as high risk in 2-3 days, 09/27-09/28 Expected Outcomes/Goals Expected Outcomes/Goals 1. PO intake to meet at least 75% of nutritional needs. 2. Wt stability, skin to remain intact, labs to approach WNL.
[2017-09-26] MEDS: Levofloxacin 750mg/150mL 750 MG/150 ML BAG IV SCH (22:22)
[2017-09-27] MEDS: HYDROmorphone 1 mg/mL 1mL Syr IVP PRN (03:26)
[2017-09-27] MEDS: D5-0.45NS w/20 mEq KCL 1,000 ML IV SCH ×2 (03:29→12:07)
[2017-09-27] MEDS: metroNIDAZOLE 500mg/NS 100mL 500 MG/100 ML BAG IV SCH ×2 (04:44→12:59)
[2017-09-27 05:53] LABS: % BASOPHILS 0.2 % (0.0-2.0); % EOSINOPHILS 2.2 % (0.0-5.0); % LYMPHOCYTES 22.7 % (20.0-50.0); % MONOCYTES 9.4 % (2.0-10.0); % NEUTROPHILS 65.5 % (40.0-80.0); EOSINOPHILE ABSOLUTE 0.2 Th/cmm (0.1-0.4); HEMATOCRIT 42.5 % (41.0-60); HEMOGLOBIN 14.3 gm/dL (12-16); LYMPHOCYTE ABSOLUTE 1.9 Th/cmm (1.5-3.0); MEAN CELL VOLUME 91.8 fl (80-99); MEAN CORPUSCULAR HEMOGLOBIN 30.8 pg (26.0-30.0); MEAN CORPUSCULAR HGB CONC 33.5 pg (28.0-36.0); MEAN PLATELET VOLUME 6.2 fl; MONOCYTE ABSOLUTE 0.8 Th/cmm (0.3-1.0); NEUTROPHILE ABSOLUTE 5.5 Th/cmm (1.8-8.0); PLATELET COUNT 546 Th/cmm (150-400); RED BLOOD COUNT 4.63 Mil/cmm (4.30-5.70); RED CELL DISTRIBUTION WIDTH 13.2 % (11.5-20.0)
[2017-09-27 06:00] LABS: WHITE BLOOD COUNT 8.4 Th/cmm (4.8-10.8)
[2017-09-27 06:13] LABS: ALBUMIN 3.3 gm/dL (4.2-5.5); ALKALINE PHOSPHATASE 190 U/L (34-104); ANION GAP 8.5 (7.0-16.0); BILIRUBIN,TOTAL 0.5 mg/dL (0.3-1.0); BUN - UREA NITROGEN 7 mg/dL (7-25); CALCIUM SERUM 8.5 mg/dL (8.6-10.3); CHLORIDE 103 mEq/L (98-107); CREATININE - SERUM 0.6 mg/dL (0.7-1.3); GFR AFRICAN-AMERICAN > 60.0 ml/min (>90); GFR NON AFRICAN-AMERICAN > 60.0 ml/min; GLUCOSE 115 mg/dL (70-105); POTASSIUM SERUM 4.5 mEq/L (3.5-5.1); SGOT 48 U/L (13-39); SGPT/ALT 48 U/L (7-52); SODIUM SERUM 133 mEq/L (136-145); TOTAL PROTEIN,SERUM 6.5 gm/dL (6.0-8.3)
--- NOTE | 2017-09-27 08:23 | General Progress Note ---
Subjective - Review of Systems Service Date: 09/27/17 Events since last encounter: labs ok TALIB drain out december DC low fat diet for 30 days to my office 1 week sponge bath only Objective - Results Result Diagrams: 09/27/17 05:28 09/27/17 05:28 Recent Labs: Laboratory Last Values WBC 8.4 Th/cmm (4.8-10.8) D 09/27/17 05:28 RBC 4.63 Mil/cmm (4.30-5.70) 09/27/17 05:28 Hgb 14.3 gm/dL (12-16) 09/27/17 05:28 Hct 42.5 % (41.0-60) 09/27/17 05:28 MCV 91.8 fl (80-99) 09/27/17 05:28 MCH 30.8 pg (26.0-30.0) H 09/27/17 05:28 MCHC Differential 33.5 pg (28.0-36.0) 09/27/17 05:28 RDW 13.2 % (11.5-20.0) 09/27/17 05:28 Plt Count 546 Th/cmm (150-400) H 09/27/17 05:28 MPV 6.2 fl 09/27/17 05:28 Neutrophils % 65.5 % (40.0-80.0) 09/27/17 05:28 Band Neutrophils % 5 % (0-10) 09/23/17 05:20 Lymphocytes % 22.7 % (20.0-50.0) 09/27/17 05:28 Monocytes % 9.4 % (2.0-10.0) 09/27/17 05:28 Eosinophils % 2.2 % (0.0-5.0) 09/27/17 05:28 Basophils % 0.2 % (0.0-2.0) 09/27/17 05:28 Neutrophils (Manual) 80 % (40-80) 09/23/17 05:20 Lymphocytes 3 % (20-50) L 09/23/17 05:20 Monocytes 9 % (2-10) 09/23/17 05:20 Eosinophils 1 % (0-5) 09/23/17 05:20 Metamyelocytes 1 % (0-0) H 09/23/17 05:20 Atypical Lymphocytes 1 % 09/23/17 05:20 Hypochromia 1+ 09/23/17 05:20 Platelet Estimate ADEQUATE (NORMAL) 09/23/17 05:20 Macrocytosis 1+ 09/23/17 05:20 PT 11.3 SECONDS (9.5-11.5) 09/25/17 05:20 INR 1.09 (0.5-1.4) 09/25/17 05:20 PTT (Actin FS) 26.0 SECONDS (26.0-38.0) 09/25/17 05:20 Sodium 133 mEq/L (136-145) L 09/27/17 05:28 Potassium 4.5 mEq/L (3.5-5.1) 09/27/17 05:28 Chloride 103 mEq/L (98-107) 09/27/17 05:28 Carbon Dioxide 26.0 mEq/L (21.0-31.0) 09/27/17 05:28 Anion Gap 8.5 (7.0-16.0) 09/27/17 05:28 BUN 7 mg/dL (7-25) 09/27/17 05:28 Creatinine 0.6 mg/dL (0.7-1.3) L 09/27/17 05:28 Est GFR ( Amer) > 60.0 ml/min (>90) 09/27/17 05:28 Est GFR (Non-Af Amer) > 60.0 ml/min 09/27/17 05:28 BUN/Creatinine Ratio 11.7 09/27/17 05:28 Glucose 115 mg/dL (70-105) H 09/27/17 05:28 POC Glucose 114 MG/DL (70 - 105) H 09/25/17 05:57 Whole Bld Lactic Acid 1.14 mmol/L (0.60-1.99) 09/20/17 17:04 Calcium 8.5 mg/dL (8.6-10.3) L 09/27/17 05:28 Total Bilirubin 0.5 mg/dL (0.3-1.0) 09/27/17 05:28 AST 48 U/L (13-39) H 09/27/17 05:28 ALT 48 U/L (7-52) 09/27/17 05:28 Alkaline Phosphatase 190 U/L (34-104) H 09/27/17 05:28 Creatine Kinase 32 U/L (30-223) 09/20/17 17:04 Troponin I < 0.01 ng/mL (0.01-0.05) L 09/20/17 17:04 B-Natriuretic Peptide 5.7 pg/mL (5.0-100.0) 09/20/17 17:04 Total Protein 6.5 gm/dL (6.0-8.3) 09/27/17 05:28 Albumin 3.3 gm/dL (4.2-5.5) L 09/27/17 05:28 Globulin 3.2 gm/dL 09/27/17 05:28 Albumin/Globulin Ratio 1.0 (1.0-1.8) 09/27/17 05:28 Triglycerides 93 mg/dL (<150) 09/20/17 17:04 Cholesterol 147 mg/dL (<200) 09/20/17 17:04 LDL Cholesterol Direct 77 mg/dL (75-193) 09/20/17 17:04 HDL Cholesterol 61 mg/dL (23-92) 09/20/17 17:04 Amylase 10 U/L (29-103) L 09/20/17 17:04 Lipase 10 U/L (11-82) L 09/23/17 05:20 Urine Source CLEAN C 09/20/17 17:00 Urine Color YELLOW 09/20/17 17:00 Urine Clarity HAZY (CLEAR) 09/20/17 17:00 Urine pH 6.5 (4.6 - 8.0) 09/20/17 17:00 Ur Specific [place] 1.025 (1.005-1.030) 09/20/17 17:00 Urine Protein 100 mg/dL (NEGATIVE) H 09/20/17 17:00 Urine Glucose (UA) NEGATIVE mg/dL (NEGATIVE) 09/20/17 17:00 Urine Ketones NEGATIVE mg/dL (NEGATIVE) 09/20/17 17:00 Urine Blood LARGE (NEGATIVE) H 09/20/17 17:00 Urine Nitrate NEGATIVE (NEGATIVE) 09/20/17 17:00 Urine Bilirubin SMALL (NEGATIVE) H 09/20/17 17:00 Urine Urobilinogen 2.0 E.U./dL (0.2 - 1.0) 09/20/17 17:00 Ur Leukocyte Esterase NEGATIVE (NEGATIVE) 09/20/17 17:00 Urine RBC 25-50 /hpf (0-5) H 09/20/17 17:00 Urine WBC 2-5 /hpf (0-5) H 09/20/17 17:00 Ur Epithelial Cells OCCASIONAL /lpf (FEW) 09/20/17 17:00 Urine Bacteria FEW /hpf (NONE SEEN) 09/20/17 17:00 Urine Opiates Screen POSITIVE (NEGATIVE) H 09/21/17 15:30 Urine Methadone Screen NEGATIVE (NEGATIVE) 09/21/17 15:30 Ur Barbiturates Screen NEGATIVE (NEGATIVE) 09/21/17 15:30 Ur Tricyclics Screen NEGATIVE (NEGATIVE) 09/21/17 15:30 Ur Phencyclidine Scrn NEGATIVE (NEGATIVE) 09/21/17 15:30 Amphetamines Screen NEGATIVE (NEGATIVE) 09/21/17 15:30 U Methamphetamines Scrn NEGATIVE (NEGATIVE) 09/21/17 15:30 U Benzodiazepines Scrn NEGATIVE (NEGATIVE) 09/21/17 15:30 U Cocaine Metab Screen NEGATIVE (NEGATIVE) 09/21/17 15:30 U Cannabinoids Screen NEGATIVE (NEGATIVE) 09/21/17 15:30 Blood Type B POSITIVE 09/25/17 11:20 Antibody Screen NEGATIVE 09/25/17 11:20 - Physical Exam Vitals and I&O: Vital Signs Temp 97.4 F 09/27/17 08:05 Pulse 76 09/27/17 08:05 Resp 20 09/27/17 08:05 BP 109/69 09/27/17 08:05 Pulse Ox 97 09/27/17 08:05 Intake & Output 09/26/17 09/27/17 09/27/17 18:59 06:59 18:59 Intake Total 1600 1100 Output Total 40 Balance 1560 1100 Weight (lbs) 86.954 kg Intake: Intake, IV Amount 1100 1100 D5-0.45NS w/20 mEq KCL 1, 1000 1000 000 ml @ 125 mls/hr IV . Q8H [facility] Rx#:[id number] metroNIDAZOLE 500mg/NS 100 100 100mL 500 mg In 100 ml @ 100 mls/hr IV Q8HR [facility] Rx #:[id number] Oral 500 Output: Drainage 40 Right Abdomen 40 Other: # Voids 4 # Bowel Movements 0 Active Medications: Current Medications Acetaminophen (Tylenol) 650 mg PO Q4H PRN PRN Reason: FEVER >100 Stop: 11/19/17 22:14 Last Admin: 09/25/17 01:46 Dose: 650 mg Hydromorphone HCl (Dilaudid) 1 mg IVP Q4H PRN PRN Reason: Pain (Severe) Stop: 11/19/17 22:14 Last Admin: 09/27/17 03:26 Dose: 1 mg Potassium Chloride/Dextrose/Sod Cl (D5-0.45ns W/20 Meq Kcl) 1,000 mls @ 125 mls /hr IV .Q8H [facility] Stop: 11/19/17 21:59 Last Admin: 09/27/17 03:29 Dose: 125 mls/hr Metronidazole (Flagyl) 500 mg in 100 mls @ 100 mls/hr IV Q8HR [facility] Stop: 11/19/17 22:59 Last Admin: 09/27/17 04:44 Dose: 100 mls/hr Levofloxacin (Levaquin Pb) 750 mg in 150 mls @ 100 mls/hr IV Q24HR [facility] Stop: 11/22/17 20:59 Last Admin: 09/26/17 22:22 Dose: 100 mls/hr Ondansetron HCl (Zofran) 4 mg IV Q4H PRN PRN Reason: Nausea / Vomiting Stop: 11/19/17 22:14 Pantoprazole Sodium (Protonix) 40 mg IVP DAILY [facility] Stop: 11/20/17 08:59 Last Admin: 09/26/17 08:33 Dose: 40 mg General: Alert, Oriented x3, Cooperative, No acute distress HEENT: Atraumatic, PERRLA Neck: Supple, JVD Cardiovascular: Regular rate, Normal S1, Normal S2 Lungs: Clear to auscultation Abdomen: Bowel sounds, Soft Psych/Mental Status: Mental status NL, Mood NL - Procedures Procedures: Procedures Procedure Code Date LAPAROSCOPIC CHOLECYSTECTOMY 59019 09/20/17 RESECTION OF GALLBLADDER, PERCUTANEOUS ENDOSCOPIC APPROACH [id number] 09/20/17 Nutritional Asmnt/Malnutr-PDOC - Dietary Evaluation Malnutrition Findings (Please click <Entered> for more info): Nutritional Asmnt/Malnutrition Start: 09/25/17 16: 50 Text: Status: Complete Freq: Document 09/25/17 16:51 LCHENG (Rec: 09/25/17 17:03 LCHENG [email or web address]) Nutritional Asmnt/Malnutrition Patient General Information Nutritional Screening Moderate Risk Diagnosis acute cholecystitis Pertinent Medical Hx/Surgical Hx none Subjective Information Pt seen sleeping in bed at time of visit. Pt was NPO for pissible surgery today. Current Diet Order/ Nutrition Support NPO Pertinent Medications levaquin, flagyl, protonix, D5 -0.45ns w 20 meq kcl Pertinent Labs 2/ Na 134, K 4.1, Cl 102, BUN 11, Cr 0.7, Glucose 109, POC 114 Nutritional Hx/Data Height 1.65 m Height (Calculated Centimeters) 165.1 Current Weight (lbs) 85.729 kg Weight (Calculated Kilograms) 85.7 Weight (Calculated Grams) 95073.0 [place] Body Weight 136 % [place] Body Weight 139 Body Mass Index (BMI) 31.4 Weight Status Obese GI Symptoms GI Symptoms None Last BM 2/2 Difficult in: None Skin Integrity/Comment: intact Estimated Nutritional Goals BEE in Kcals: Adj wt of IBW Calories/Kcals/Kg 25-30 Kcals Calculated 9809-4211 Protein: Adj wt of IBW Protein g/k Protein Calculated 68 Fluid: ml 1700-2040ml (1ml/kcal) Nutritional Problem 1. Problem Problem inadequate food intake Etiology acute cholecystitis Signs/Symptoms: pt on clear liquid and NPO since adm Malnutrition Alert Protein-Calorie Malnutrition N/A Is there a minimum of two criteria No selected? Query Text:Check all the applicable criteria. A minimum of two criteria are recommended for diagnosis of either severe or non-severe malnutrition. Intervention/Recommendation Comments 1. Monitor NPO status. Recommend Boost Breeze TID when diet advances to clear liquid diet 2. Monitor PO intake, wt, labs and skin integrity 3. F/U as high risk in 2-3 days, 09/27-09/28 Expected Outcomes/Goals Expected Outcomes/Goals 1. PO intake to meet at least 75% of nutritional needs. 2. Wt stability, skin to remain intact, labs to approach WNL.
--- NOTE | 2017-09-27 13:35 | General Progress Note ---
Subjective - Review of Systems Service Date: 09/27/17 Events since last encounter: labs ok minimal TALIB drain discharge Objective - Results Result Diagrams: 09/27/17 05:28 09/27/17 05:28 Recent Labs: Laboratory Last Values WBC 8.4 Th/cmm (4.8-10.8) D 09/27/17 05:28 RBC 4.63 Mil/cmm (4.30-5.70) 09/27/17 05:28 Hgb 14.3 gm/dL (12-16) 09/27/17 05:28 Hct 42.5 % (41.0-60) 09/27/17 05:28 MCV 91.8 fl (80-99) 09/27/17 05:28 MCH 30.8 pg (26.0-30.0) H 09/27/17 05:28 MCHC Differential 33.5 pg (28.0-36.0) 09/27/17 05:28 RDW 13.2 % (11.5-20.0) 09/27/17 05:28 Plt Count 546 Th/cmm (150-400) H 09/27/17 05:28 MPV 6.2 fl 09/27/17 05:28 Neutrophils % 65.5 % (40.0-80.0) 09/27/17 05:28 Band Neutrophils % 5 % (0-10) 09/23/17 05:20 Lymphocytes % 22.7 % (20.0-50.0) 09/27/17 05:28 Monocytes % 9.4 % (2.0-10.0) 09/27/17 05:28 Eosinophils % 2.2 % (0.0-5.0) 09/27/17 05:28 Basophils % 0.2 % (0.0-2.0) 09/27/17 05:28 Neutrophils (Manual) 80 % (40-80) 09/23/17 05:20 Lymphocytes 3 % (20-50) L 09/23/17 05:20 Monocytes 9 % (2-10) 09/23/17 05:20 Eosinophils 1 % (0-5) 09/23/17 05:20 Metamyelocytes 1 % (0-0) H 09/23/17 05:20 Atypical Lymphocytes 1 % 09/23/17 05:20 Hypochromia 1+ 09/23/17 05:20 Platelet Estimate ADEQUATE (NORMAL) 09/23/17 05:20 Macrocytosis 1+ 09/23/17 05:20 PT 11.3 SECONDS (9.5-11.5) 09/25/17 05:20 INR 1.09 (0.5-1.4) 09/25/17 05:20 PTT (Actin FS) 26.0 SECONDS (26.0-38.0) 09/25/17 05:20 Sodium 133 mEq/L (136-145) L 09/27/17 05:28 Potassium 4.5 mEq/L (3.5-5.1) 09/27/17 05:28 Chloride 103 mEq/L (98-107) 09/27/17 05:28 Carbon Dioxide 26.0 mEq/L (21.0-31.0) 09/27/17 05:28 Anion Gap 8.5 (7.0-16.0) 09/27/17 05:28 BUN 7 mg/dL (7-25) 09/27/17 05:28 Creatinine 0.6 mg/dL (0.7-1.3) L 09/27/17 05:28 Est GFR ( Amer) > 60.0 ml/min (>90) 09/27/17 05:28 Est GFR (Non-Af Amer) > 60.0 ml/min 09/27/17 05:28 BUN/Creatinine Ratio 11.7 09/27/17 05:28 Glucose 115 mg/dL (70-105) H 09/27/17 05:28 POC Glucose 114 MG/DL (70 - 105) H 09/25/17 05:57 Whole Bld Lactic Acid 1.14 mmol/L (0.60-1.99) 09/20/17 17:04 Calcium 8.5 mg/dL (8.6-10.3) L 09/27/17 05:28 Total Bilirubin 0.5 mg/dL (0.3-1.0) 09/27/17 05:28 AST 48 U/L (13-39) H 09/27/17 05:28 ALT 48 U/L (7-52) 09/27/17 05:28 Alkaline Phosphatase 190 U/L (34-104) H 09/27/17 05:28 Creatine Kinase 32 U/L (30-223) 09/20/17 17:04 Troponin I < 0.01 ng/mL (0.01-0.05) L 09/20/17 17:04 B-Natriuretic Peptide 5.7 pg/mL (5.0-100.0) 09/20/17 17:04 Total Protein 6.5 gm/dL (6.0-8.3) 09/27/17 05:28 Albumin 3.3 gm/dL (4.2-5.5) L 09/27/17 05:28 Globulin 3.2 gm/dL 09/27/17 05:28 Albumin/Globulin Ratio 1.0 (1.0-1.8) 09/27/17 05:28 Triglycerides 93 mg/dL (<150) 09/20/17 17:04 Cholesterol 147 mg/dL (<200) 09/20/17 17:04 LDL Cholesterol Direct 77 mg/dL (75-193) 09/20/17 17:04 HDL Cholesterol 61 mg/dL (23-92) 09/20/17 17:04 Amylase 10 U/L (29-103) L 09/20/17 17:04 Lipase 10 U/L (11-82) L 09/23/17 05:20 Urine Source CLEAN C 09/20/17 17:00 Urine Color YELLOW 09/20/17 17:00 Urine Clarity HAZY (CLEAR) 09/20/17 17:00 Urine pH 6.5 (4.6 - 8.0) 09/20/17 17:00 Ur Specific [place] 1.025 (1.005-1.030) 09/20/17 17:00 Urine Protein 100 mg/dL (NEGATIVE) H 09/20/17 17:00 Urine Glucose (UA) NEGATIVE mg/dL (NEGATIVE) 09/20/17 17:00 Urine Ketones NEGATIVE mg/dL (NEGATIVE) 09/20/17 17:00 Urine Blood LARGE (NEGATIVE) H 09/20/17 17:00 Urine Nitrate NEGATIVE (NEGATIVE) 09/20/17 17:00 Urine Bilirubin SMALL (NEGATIVE) H 09/20/17 17:00 Urine Urobilinogen 2.0 E.U./dL (0.2 - 1.0) 09/20/17 17:00 Ur Leukocyte Esterase NEGATIVE (NEGATIVE) 09/20/17 17:00 Urine RBC 25-50 /hpf (0-5) H 09/20/17 17:00 Urine WBC 2-5 /hpf (0-5) H 09/20/17 17:00 Ur Epithelial Cells OCCASIONAL /lpf (FEW) 09/20/17 17:00 Urine Bacteria FEW /hpf (NONE SEEN) 09/20/17 17:00 Urine Opiates Screen POSITIVE (NEGATIVE) H 09/21/17 15:30 Urine Methadone Screen NEGATIVE (NEGATIVE) 09/21/17 15:30 Ur Barbiturates Screen NEGATIVE (NEGATIVE) 09/21/17 15:30 Ur Tricyclics Screen NEGATIVE (NEGATIVE) 09/21/17 15:30 Ur Phencyclidine Scrn NEGATIVE (NEGATIVE) 09/21/17 15:30 Amphetamines Screen NEGATIVE (NEGATIVE) 09/21/17 15:30 U Methamphetamines Scrn NEGATIVE (NEGATIVE) 09/21/17 15:30 U Benzodiazepines Scrn NEGATIVE (NEGATIVE) 09/21/17 15:30 U Cocaine Metab Screen NEGATIVE (NEGATIVE) 09/21/17 15:30 U Cannabinoids Screen NEGATIVE (NEGATIVE) 09/21/17 15:30 Blood Type B POSITIVE 09/25/17 11:20 Antibody Screen NEGATIVE 09/25/17 11:20 - Physical Exam Vitals and I&O: Vital Signs Temp 97.6 F 09/27/17 12:28 Pulse 85 09/27/17 12:28 Resp 20 09/27/17 12:28 BP 103/65 09/27/17 12:28 Pulse Ox 96 09/27/17 12:28 Intake & Output 09/26/17 09/27/17 09/27/17 18:59 06:59 18:59 Intake Total 1600 1200 1000 Output Total 40 Balance 1560 1200 1000 Weight (lbs) 86.954 kg Intake: Intake, IV Amount 1100 1200 1000 D5-0.45NS w/20 mEq KCL 1, 1000 1000 1000 000 ml @ 125 mls/hr IV . Q8H RASHAWN Rx#:[id number] metroNIDAZOLE 500mg/NS 100 200 100mL 500 mg In 100 ml @ 100 mls/hr IV Q8HR RASHAWN Rx #:[id number] Oral 500 Output: Drainage 40 Right Abdomen 40 Other: # Voids 4 # Bowel Movements 0 Active Medications: Current Medications Acetaminophen (Tylenol) 650 mg PO Q4H PRN PRN Reason: FEVER >100 Stop: 04/01/18 22:14 Last Admin: 09/25/17 01:46 Dose: 650 mg Hydromorphone HCl (Dilaudid) 1 mg IVP Q4H PRN PRN Reason: Pain (Severe) Stop: 11/19/17 22:14 Last Admin: 09/27/17 03:26 Dose: 1 mg Potassium Chloride/Dextrose/Sod Cl (D5-0.45ns W/20 Meq Kcl) 1,000 mls @ 125 mls /hr IV .Q8H [facility] Stop: 11/19/17 21:59 Last Admin: 09/27/17 12:07 Dose: 125 mls/hr Metronidazole (Flagyl) 500 mg in 100 mls @ 100 mls/hr IV Q8HR [facility] Stop: 11/19/17 22:59 Last Admin: 09/27/17 12:59 Dose: 100 mls/hr Levofloxacin (Levaquin Pb) 750 mg in 150 mls @ 100 mls/hr IV Q24HR [facility] Stop: 11/22/17 20:59 Last Admin: 09/26/17 22:22 Dose: 100 mls/hr Ondansetron HCl (Zofran) 4 mg IV Q4H PRN PRN Reason: Nausea / Vomiting Stop: 11/19/17 22:14 Pantoprazole Sodium (Protonix) 40 mg IVP DAILY [facility] Stop: 11/20/17 08:59 Last Admin: 09/27/17 08:59 Dose: 40 mg General: Alert, Oriented x3, Cooperative, No acute distress HEENT: Atraumatic, PERRLA Neck: Supple, JVD Cardiovascular: Regular rate, Normal S1, Normal S2 Lungs: Clear to auscultation Abdomen: Bowel sounds, Soft Psych/Mental Status: Mental status NL, Mood NL - Procedures Procedures: Procedures Procedure Code Date LAPAROSCOPIC CHOLECYSTECTOMY 80298 09/20/17 RESECTION OF GALLBLADDER, PERCUTANEOUS ENDOSCOPIC APPROACH [id number] 09/20/17 Nutritional Asmnt/Malnutr-PDOC - Dietary Evaluation Malnutrition Findings (Please click <Entered> for more info): Nutritional Asmnt/Malnutrition Start: 09/25/17 16: 50 Text: Status: Complete Freq: Document 09/25/17 16:51 VY (Rec: 09/25/17 17:03 VY [email or web address]) Nutritional Asmnt/Malnutrition Patient General Information Nutritional Screening Moderate Risk Diagnosis acute cholecystitis Pertinent Medical Hx/Surgical Hx none Subjective Information Pt seen sleeping in bed at time of visit. Pt was NPO for pissible surgery today. Current Diet Order/ Nutrition Support NPO Pertinent Medications levaquin, flagyl, protonix, D5 -0.45ns w 20 meq kcl Pertinent Labs 2/ Na 134, K 4.1, Cl 102, BUN 11, Cr 0.7, Glucose 109, POC 114 Nutritional Hx/Data Height 1.65 m Height (Calculated Centimeters) 165.1 Current Weight (lbs) 85.729 kg Weight (Calculated Kilograms) 85.7 Weight (Calculated Grams) 65998.0 [place] Body Weight 136 % [place] Body Weight 139 Body Mass Index (BMI) 31.4 Weight Status Obese GI Symptoms GI Symptoms None Last BM 2/2 Difficult in: None Skin Integrity/Comment: intact Estimated Nutritional Goals BEE in Kcals: Adj wt of IBW Calories/Kcals/Kg 25-30 Kcals Calculated 2212-9932 Protein: Adj wt of IBW Protein g/k Protein Calculated 68 Fluid: ml 1700-2040ml (1ml/kcal) Nutritional Problem 1. Problem Problem inadequate food intake Etiology acute cholecystitis Signs/Symptoms: pt on clear liquid and NPO since adm Malnutrition Alert Protein-Calorie Malnutrition N/A Is there a minimum of two criteria No selected? Query Text:Check all the applicable criteria. A minimum of two criteria are recommended for diagnosis of either severe or non-severe malnutrition. Intervention/Recommendation Comments 1. Monitor NPO status. Recommend Boost Breeze TID when diet advances to clear liquid diet 2. Monitor PO intake, wt, labs and skin integrity 3. F/U as high risk in 2-3 days, 09/27-09/28 Expected Outcomes/Goals Expected Outcomes/Goals 1. PO intake to meet at least 75% of nutritional needs. 2. Wt stability, skin to remain intact, labs to approach WNL.
--- NOTE | 2017-09-27 14:17 | Pathology Report ---
[id number] Collection Date: 09/25/2017 Surgeon: Dr. Jagruti Mayer Specimen Description: Gallbladder Gross Description: Received in formalin is an 8 x 3 x 2.2 cm gallbladder showing hemorrhagic fragmentation and multiple adhesions on the disrupted outer surface. Opening the gallbladder shows a 3.0 cm greenish-yellow gallstone with diffuse mucosal ulceration present. The gallbladder wall ranges from 0.3 to 0.8 cm in thickness and shows extensive induration and degenerative changes. [employer] Clerk sections are submitted in two cassettes labeled A1-A2. Microscopic Description: The histologic sections show gallbladder wall and mucosa with extensive ulceration and inflammatory changes present. The inflammatory cells consist of neutrphils admixed with lymphocytes with focal areas showing suppurative inflammation, consisting of large collections of neutrophils with a very degenerated/necrotic background present. Diagnosis: Acute gangrenous cholecystitis, gallbladder. [facility]# [id number] MTDD
--- NOTE | 2017-09-27 18:18 | Infectious Disease Prog Note ---
Infectious Disease Subjective - Review of Systems Service Date: 09/27/17 Subjective: cc cholecystitis s/p surgery hpi- pt schedule for discharge wbc 10 k ros no fevr o/e vs chest claer abd soft tender decreased claen wounds ext pulse Infectious Disease Objective - Results Result Diagrams: 09/27/17 05:28 09/27/17 05:28 Recent Labs: Laboratory Last Values WBC 8.4 Th/cmm (4.8-10.8) D 09/27/17 05:28 RBC 4.63 Mil/cmm (4.30-5.70) 09/27/17 05:28 Hgb 14.3 gm/dL (12-16) 09/27/17 05:28 Hct 42.5 % (41.0-60) 09/27/17 05:28 MCV 91.8 fl (80-99) 09/27/17 05:28 MCH 30.8 pg (26.0-30.0) H 09/27/17 05:28 MCHC Differential 33.5 pg (28.0-36.0) 09/27/17 05:28 RDW 13.2 % (11.5-20.0) 09/27/17 05:28 Plt Count 546 Th/cmm (150-400) H 09/27/17 05:28 MPV 6.2 fl 09/27/17 05:28 Neutrophils % 65.5 % (40.0-80.0) 09/27/17 05:28 Band Neutrophils % 5 % (0-10) 09/23/17 05:20 Lymphocytes % 22.7 % (20.0-50.0) 09/27/17 05:28 Monocytes % 9.4 % (2.0-10.0) 09/27/17 05:28 Eosinophils % 2.2 % (0.0-5.0) 09/27/17 05:28 Basophils % 0.2 % (0.0-2.0) 09/27/17 05:28 Neutrophils (Manual) 80 % (40-80) 09/23/17 05:20 Lymphocytes 3 % (20-50) L 09/23/17 05:20 Monocytes 9 % (2-10) 09/23/17 05:20 Eosinophils 1 % (0-5) 09/23/17 05:20 Metamyelocytes 1 % (0-0) H 09/23/17 05:20 Atypical Lymphocytes 1 % 09/23/17 05:20 Hypochromia 1+ 09/23/17 05:20 Platelet Estimate ADEQUATE (NORMAL) 09/23/17 05:20 Macrocytosis 1+ 09/23/17 05:20 PT 11.3 SECONDS (9.5-11.5) 09/25/17 05:20 INR 1.09 (0.5-1.4) 09/25/17 05:20 PTT (Actin FS) 26.0 SECONDS (26.0-38.0) 09/25/17 05:20 Sodium 133 mEq/L (136-145) L 09/27/17 05:28 Potassium 4.5 mEq/L (3.5-5.1) 09/27/17 05:28 Chloride 103 mEq/L (98-107) 09/27/17 05:28 Carbon Dioxide 26.0 mEq/L (21.0-31.0) 09/27/17 05:28 Anion Gap 8.5 (7.0-16.0) 09/27/17 05:28 BUN 7 mg/dL (7-25) 09/27/17 05:28 Creatinine 0.6 mg/dL (0.7-1.3) L 09/27/17 05:28 Est GFR ( Amer) > 60.0 ml/min (>90) 09/27/17 05:28 Est GFR (Non-Af Amer) > 60.0 ml/min 09/27/17 05:28 BUN/Creatinine Ratio 11.7 09/27/17 05:28 Glucose 115 mg/dL (70-105) H 09/27/17 05:28 POC Glucose 114 MG/DL (70 - 105) H 09/25/17 05:57 Whole Bld Lactic Acid 1.14 mmol/L (0.60-1.99) 09/20/17 17:04 Calcium 8.5 mg/dL (8.6-10.3) L 09/27/17 05:28 Total Bilirubin 0.5 mg/dL (0.3-1.0) 09/27/17 05:28 AST 48 U/L (13-39) H 09/27/17 05:28 ALT 48 U/L (7-52) 09/27/17 05:28 Alkaline Phosphatase 190 U/L (34-104) H 09/27/17 05:28 Creatine Kinase 32 U/L (30-223) 09/20/17 17:04 Troponin I < 0.01 ng/mL (0.01-0.05) L 09/20/17 17:04 B-Natriuretic Peptide 5.7 pg/mL (5.0-100.0) 09/20/17 17:04 Total Protein 6.5 gm/dL (6.0-8.3) 09/27/17 05:28 Albumin 3.3 gm/dL (4.2-5.5) L 09/27/17 05:28 Globulin 3.2 gm/dL 09/27/17 05:28 Albumin/Globulin Ratio 1.0 (1.0-1.8) 09/27/17 05:28 Triglycerides 93 mg/dL (<150) 09/20/17 17:04 Cholesterol 147 mg/dL (<200) 09/20/17 17:04 LDL Cholesterol Direct 77 mg/dL (75-193) 09/20/17 17:04 HDL Cholesterol 61 mg/dL (23-92) 09/20/17 17:04 Amylase 10 U/L (29-103) L 09/20/17 17:04 Lipase 10 U/L (11-82) L 09/23/17 05:20 Urine Source CLEAN C 09/20/17 17:00 Urine Color YELLOW 09/20/17 17:00 Urine Clarity HAZY (CLEAR) 09/20/17 17:00 Urine pH 6.5 (4.6 - 8.0) 09/20/17 17:[address] [place] 1.025 (1.005-1.030) 09/20/17 17:00 Urine Protein 100 mg/dL (NEGATIVE) H 09/20/17 17:00 Urine Glucose (UA) NEGATIVE mg/dL (NEGATIVE) 09/20/17 17:00 Urine Ketones NEGATIVE mg/dL (NEGATIVE) 09/20/17 17:00 Urine Blood LARGE (NEGATIVE) H 09/20/17 17:00 Urine Nitrate NEGATIVE (NEGATIVE) 09/20/17 17:00 Urine Bilirubin SMALL (NEGATIVE) H 09/20/17 17:00 Urine Urobilinogen 2.0 E.U./dL (0.2 - 1.0) 09/20/17 17:00 Ur Leukocyte Esterase NEGATIVE (NEGATIVE) 09/20/17 17:00 Urine RBC 25-50 /hpf (0-5) H 09/20/17 17:00 Urine WBC 2-5 /hpf (0-5) H 09/20/17 17:00 Ur Epithelial Cells OCCASIONAL /lpf (FEW) 09/20/17 17:00 Urine Bacteria FEW /hpf (NONE SEEN) 09/20/17 17:00 Urine Opiates Screen POSITIVE (NEGATIVE) H 09/21/17 15:30 Urine Methadone Screen NEGATIVE (NEGATIVE) 09/21/17 15:30 Ur Barbiturates Screen NEGATIVE (NEGATIVE) 09/21/17 15:30 Ur Tricyclics Screen NEGATIVE (NEGATIVE) 09/21/17 15:30 Ur Phencyclidine Scrn NEGATIVE (NEGATIVE) 09/21/17 15:30 Amphetamines Screen NEGATIVE (NEGATIVE) 09/21/17 15:30 U Methamphetamines Scrn NEGATIVE (NEGATIVE) 09/21/17 15:30 U Benzodiazepines Scrn NEGATIVE (NEGATIVE) 09/21/17 15:30 U Cocaine Metab Screen NEGATIVE (NEGATIVE) 09/21/17 15:30 U Cannabinoids Screen NEGATIVE (NEGATIVE) 09/21/17 15:30 Blood Type B POSITIVE 09/25/17 11:20 Antibody Screen NEGATIVE 09/25/17 11:20 - Physical Exam Vitals and I&O: Vital Signs Temp 97.6 F 09/27/17 14:11 Pulse 85 09/27/17 14:11 Resp 20 09/27/17 14:11 BP 103/65 09/27/17 14:11 Pulse Ox 96 09/27/17 14:11 Intake & Output 09/26/17 09/27/17 09/27/17 18:59 06:59 18:59 Intake Total 1600 1200 1000 Output Total 40 Balance 1560 1200 1000 Weight (lbs) 86.954 kg Intake: Intake, IV Amount 1100 1200 1000 D5-0.45NS w/20 mEq KCL 1, 1000 1000 1000 000 ml @ 125 mls/hr IV . Q8H RASHAWN Rx#:[id number] metroNIDAZOLE 500mg/NS 100 200 100mL 500 mg In 100 ml @ 100 mls/hr IV Q8HR RASHAWN Rx #:[id number] Oral 500 Output: Drainage 40 Right Abdomen 40 Other: # Voids 4 # Bowel Movements 0 - Procedures Procedures: Procedures Procedure Code Date LAPAROSCOPIC CHOLECYSTECTOMY 59576 09/20/17 RESECTION OF GALLBLADDER, PERCUTANEOUS ENDOSCOPIC APPROACH [id number] 09/20/17 Nutritional Asmnt/Malnutr-PDOC - Dietary Evaluation Malnutrition Findings (Please click <Entered> for more info): Nutritional Asmnt/Malnutrition Start: 09/25/17 16: 50 Text: Status: Complete Freq: Document 09/25/17 16:51 LCHENG (Rec: 09/25/17 17:03 LCHENG [email or web address]) Nutritional Asmnt/Malnutrition Patient General Information Nutritional Screening Moderate Risk Diagnosis acute cholecystitis Pertinent Medical Hx/Surgical Hx none Subjective Information Pt seen sleeping in bed at time of visit. Pt was NPO for pissible surgery today. Current Diet Order/ Nutrition Support NPO Pertinent Medications levaquin, flagyl, protonix, D5 -0.45ns w 20 meq kcl Pertinent Labs 2/ Na 134, K 4.1, Cl 102, BUN 11, Cr 0.7, Glucose 109, POC 114 Nutritional Hx/Data Height 1.65 m Height (Calculated Centimeters) 165.1 Current Weight (lbs) 85.729 kg Weight (Calculated Kilograms) 85.7 Weight (Calculated Grams) 69008.0 [place] Body Weight 136 % [place] Body Weight 139 Body Mass Index (BMI) 31.4 Weight Status Obese GI Symptoms GI Symptoms None Last BM 2/2 Difficult in: None Skin Integrity/Comment: intact Estimated Nutritional Goals BEE in Kcals: Adj wt of IBW Calories/Kcals/Kg 25-30 Kcals Calculated 9252-6820 Protein: Adj wt of IBW Protein g/k Protein Calculated 68 Fluid: ml 1700-2040ml (1ml/kcal) Nutritional Problem 1. Problem Problem inadequate food intake Etiology acute cholecystitis Signs/Symptoms: pt on clear liquid and NPO since adm Malnutrition Alert Protein-Calorie Malnutrition N/A Is there a minimum of two criteria No selected? Query Text:Check all the applicable criteria. A minimum of two criteria are recommended for diagnosis of either severe or non-severe malnutrition. Intervention/Recommendation Comments 1. Monitor NPO status. Recommend Boost Breeze TID when diet advances to clear liquid diet 2. Monitor PO intake, wt, labs and skin integrity 3. F/U as high risk in 2-3 days, 09/27-09/28 Expected Outcomes/Goals Expected Outcomes/Goals 1. PO intake to meet at least 75% of nutritional needs. 2. Wt stability, skin to remain intact, labs to approach WNL.
--- NOTE | 2017-10-12 21:31 | Discharge Summary ---
DATE OF DISCHARGE: 09/27/2017 FINAL DIAGNOSES: 1. Acute cholecystitis. 2. Cholelithiasis. 3. Status post laparoscopic cholecystectomy. 4. Hyponatremia. REVIEW OF HISTORY: The patient is a 47-year-old male presented to the Emergency Room with acute abdominal pain. Initial workup was significant for acute cholecystitis and cholelithiasis. The patient admitted to the hospital. Dr. Mayer consulted on the case. PHYSICAL EXAMINATION: CHEST: Clear to auscultation. ABDOMEN: Soft. Tenderness in the right upper abdomen. Rebound negative. EXTREMITIES: No edema. COURSE OF HOSPITALIZATION: During this hospitalization, the patient was seen by Dr. Mayer. The patient had a scan done, which was significant for acute cholecystitis. The patient underwent laparoscopic cholecystectomy successfully on 09/25/2017. The patient was feeling better. No nausea, no vomiting, no chills. Her food was advanced to a low fat diet. DISPOSITION: On 09/27/2017, the patient was clinically stable. No nausea, no vomiting. The patient discharged home to be followed up with primary physician and surgeon as outpatient. CONDITION ON DISCHARGE: Stable. MEDICATIONS: Follow discharge reconciliation. [facility]# [id number]
== END 2017-09-27 14:38 | disposition home or self-care (01) | DRG 263 ==
LOC: ER 16:13 → MSI 21:40 → TELE 09-22 23:06 → MSI 09-23 06:00
PROVIDERS: ADMIT Family Medicine; ATTEND Family Medicine
PROC: 0FT44ZZ Resection of Gallbladder, Percutaneous Endoscopic Approach (ICD-10-PCS; principal; 2017-09-25)
DX: K80.00 Calculus of gallbladder with acute cholecystitis without obstruction (principal); E87.1 Hypo-osmolality and hyponatremia; F17.210 Nicotine dependence, cigarettes, uncomplicated; K52.9 Noninfective gastroenteritis and colitis, unspecified; K42.9 Umbilical hernia without obstruction or gangrene; Z82.49 Family history of ischemic heart disease and other diseases of the circulatory system
CPT/HCPCS: 36415-UA; 71045-TC; 76700-TC; 78226-TC; 80048-TC; 80053-TC; 80061-TC; 80307; 81001-TC; 82150-TC; 82550-TC; 82948-90; 83605; 83690-TC; 83880-TC; 84484-TC; 85007-TC; 85025-TC; 85027-TC; 85610-TC; 85730-TC; 86850-TC; 86900-TC; 86901-TC; 87070-90; 87075-90; 87205-90; 88304-TC; 90784; 90799; 93005; 96372; 96375; A9537; C9113; J0690; J0696; J1170; J1956; J2001; J2270; J2405; J2704; J2710; J3010; J7030; X6258; X6494; Z7610